=== PATIENT | male | born 1935 | race Caucasian/White ===

== ENCOUNTER 2016-10-14 14:17 | Outpatient (RCR) | payer MEDICARE ==
--- OUTSIDE RECORDS SUMMARY | 2016-07-21 12:48 | XMS REPORT | Continuity of Care Document ---
Author Author [facility] Organization [facility] Address Unknown Phone Unavailable Care Team Providers Care Receiving Coordinator Name Role Phone PILAR HUGHES DO PCP Insurance Providers Payer Name Policy Number Subscriber Name Relationship Wps Medicare [id number] Huyen Castro 19 Self / Same As Patient [facility] Supp [id number] Huyen Castro Self / Same As Patient Advance Directives Directive Response Recorded Date/Time Advance Directives No 12/07/15 7:37am Health Care Power of Slate Trimmer No 12/07/15 7:37am Organ Donor Yes 12/07/15 7:37am Problems Active Problems Medical Problem Onset Date Status Abrasion Unknown Acute Closed nondisplaced fracture of pelvis Unknown Acute Fall from ladder Unknown Acute Fracture of distal end of right humerus Unknown Acute Fracture of radial head, right, closed Unknown Acute Medications Current Home Medications Medication Dose Units Route Directions Days/Qty Instructions Start Date Levothyroxine Sodium (Levothroid) 125 Mcg 125 Mcg Oral Daily Isosorbide Mononitrate 60 Mg 60 Mg Oral Twice A Day 01/16/15 Atorvastatin Calcium 10 Mg 10 Mg Oral Bedtime 01/16/15 Amiodarone Hcl 200 Mg 200 Mg Oral Daily 12/03/15 Ferrous Sulfate 325 Mg 325 Mg Oral Bedtime 12/03/15 Lorazepam 0.5 Mg 0.5 Mg Oral Twice A Day as needed for Anxiety 12/02 Past Home Medications Medication Directions Ordered Status Warfarin Sodium 5 Mg Tablet, 5 Mg Oral Daily 01/16/15 Discontinued Bupropion Hcl 300 Mg Tab.sr.24h, 300 Mg Oral Daily 01/16/15 Discontinued Prasugrel Hydrochloride 10 Mg Tablet, 10 Mg Oral Daily 01/16/15 Discontinued Digoxin (Lanoxin) 250 Mcg Tablet, 1 Each Oral Daily 01/16/15 Discontinued Apixaban (Eliquis) 5 Mg Tablet, 2.5 Mg Oral Twice A Day 05/08/15 Discontinued Sotalol Hcl 80 Mg Tab, 1/2 Am, 1/2 Pm 05/08/15 Discontinued Prasugrel Hcl 10 Mg Tablet, 10 Mg Oral Daily 12/03/15 Discontinued Aspirin 81 Mg Tablet.dr, 81 Mg Oral Daily 12/03/15 Discontinued Social History Social History Problem Response Recorded Date/Time Alcohol Use Denies Use 05/08/2015 3:58pm Recreational Drug Use No 05/08/2015 3:58pm Recent Foreign Travel No 04/08/2016 10:18am Do you dip or chew tobacco? No 05/08/2015 3:58pm Hospital Discharge Instructions No hospital discharge instructions. Plan of Care Prescriptions See Medication Section Functional Status No functional status results. Allergies, Adverse Reactions, Alerts Allergen Type Severity Reaction Status Last Updated Sulfa (Sulfonamide Antibiotics) ([id number]) Allergy Unknown Active 02/24 Quinine Allergy Unknown Active 01/16/15 Immunizations No immunization records. Vital Signs No known vital signs results. Results No known relevant diagnostic tests, laboratory data and/or discharge summary. Procedures No known history of procedures. Encounters Encounter Location Arrival/Admit Date Discharge/Depart Date Attending Provider Discharged Recurring [facility] 04/10/16 10:15am 5:00pm PILAR HUGHES DO Registered Clinic [facility] 03/27/16 8:58am KAITLYN MULLINS DO
[2016-07-21 13:41] LABS: BASOPHILS % (AUTO) 1 % (0-10); EOSINOPHILS # (AUTO) 0.2 10^3/uL (0.0-0.3); EOSINOPHILS % (AUTO) 5 % (0-10); LYMPHOCYTES # (AUTO) 0.7 X 10^3 (1.0-4.0); LYMPHOCYTES % (AUTO) 14 % (12-44); MEAN CORPUSCULAR HEMOGLOBIN 24 PG (25-34); MEAN CORPUSCULAR HGB CONC 30 G/DL (32-36); MEAN CORPUSCULAR VOLUME 82 FL (80-99); MONOCYTES # (AUTO) 0.9 X 10^3 (0.0-1.0); MONOCYTES % (AUTO) 19 % (0-12); NEUTROPHILS % (AUTO) 62 % (42-75); PLATELET COUNT 141 10^3/uL (130-400); RED BLOOD COUNT 3.76 10^6/uL (4.35-5.85); RED CELL DISTRIBUTION WIDTH 17.5 % (10.0-14.5); RETICULOCYTE % 1.73 % (0.50-2.40); WHITE BLOOD COUNT 4.8 10^3/uL (4.3-11.0)
[2016-07-21 14:06] LABS: ALANINE AMINOTRANSFERASE 47 U/L (0-55); ALBUMIN 3.9 G/DL (3.2-4.5); ANION GAP 7 MMOL/L (5-14); ASPARTATE AMINO TRANSFERASE 56 U/L (5-34); BILIRUBIN,TOTAL 0.3 MG/DL (0.1-1.0); BLOOD UREA NITROGEN 14 MG/DL (7-18); BUN/CREATININE RATIO 13; CALCIUM 8.6 MG/DL (8.5-10.1); CARBON DIOXIDE 27 MMOL/L (21-32); CHLORIDE 105 MMOL/L (98-107); CREATININE SERUM 1.12 MG/DL (0.60-1.30); GFR ESTIMATED > 60; GLUCOSE 123 MG/DL (70-105); POTASSIUM 4.5 MMOL/L (3.6-5.0); SODIUM 139 MMOL/L (135-145); TOTAL PROTEIN 6.1 G/DL (6.4-8.2)
[2016-07-21 16:34] LABS: %SAT TOTAL IRON BINDING CAPIC 4 % (15-50); TIBC 369 ug/dL (280-380)
[2016-07-22 07:47] LABS: FERRITIN 35 ng/mL (25-300); UIBC 353 ug/dL (55-450)
[2016-08-18 14:57] LABS: BASOPHILS % (AUTO) 0 % (0-10); EOSINOPHILS # (AUTO) 0.2 10^3/uL (0.0-0.3); EOSINOPHILS % (AUTO) 4 % (0-10); LYMPHOCYTES # (AUTO) 0.6 X 10^3 (1.0-4.0); LYMPHOCYTES % (AUTO) 13 % (12-44); MEAN CORPUSCULAR HEMOGLOBIN 27 PG (25-34); MEAN CORPUSCULAR HGB CONC 30 G/DL (32-36); MEAN CORPUSCULAR VOLUME 90 FL (80-99); MEAN PLATELET VOLUME 11.1 FL (7.4-10.4); MONOCYTES # (AUTO) 0.8 X 10^3 (0.0-1.0); MONOCYTES % (AUTO) 18 % (0-12); NEUTROPHILS % (AUTO) 65 % (42-75); PLATELET COUNT 117 10^3/uL (130-400); RED CELL DISTRIBUTION WIDTH 23.1 % (10.0-14.5); WHITE BLOOD COUNT 4.6 10^3/uL (4.3-11.0)
[2016-08-18 15:19] LABS: ALANINE AMINOTRANSFERASE 40 U/L (0-55); ALBUMIN 3.9 G/DL (3.2-4.5); ANION GAP 7 MMOL/L (5-14); ASPARTATE AMINO TRANSFERASE 61 U/L (5-34); BILIRUBIN,TOTAL 0.4 MG/DL (0.1-1.0); BLOOD UREA NITROGEN 17 MG/DL (7-18); BUN/CREATININE RATIO 17; CALCIUM 8.4 MG/DL (8.5-10.1); CARBON DIOXIDE 26 MMOL/L (21-32); CHLORIDE 109 MMOL/L (98-107); CREATININE SERUM 0.99 MG/DL (0.60-1.30); GFR ESTIMATED > 60; GLUCOSE 134 MG/DL (70-105); POTASSIUM 4.1 MMOL/L (3.6-5.0); SODIUM 142 MMOL/L (135-145); TOTAL PROTEIN 6.1 G/DL (6.4-8.2)
[2016-09-15 14:03] LABS: BASOPHILS % (AUTO) 1 % (0-10); EOSINOPHILS # (AUTO) 0.2 10^3/uL (0.0-0.3); EOSINOPHILS % (AUTO) 2 % (0-10); LYMPHOCYTES # (AUTO) 0.8 X 10^3 (1.0-4.0); LYMPHOCYTES % (AUTO) 12 % (12-44); MEAN CORPUSCULAR HEMOGLOBIN 27 PG (25-34); MEAN CORPUSCULAR HGB CONC 31 G/DL (32-36); MEAN CORPUSCULAR VOLUME 89 FL (80-99); MEAN PLATELET VOLUME 11.6 FL (7.4-10.4); MONOCYTES # (AUTO) 1.1 X 10^3 (0.0-1.0); MONOCYTES % (AUTO) 16 % (0-12); NEUTROPHILS # (AUTO) 4.8 X 10^3 (1.8-7.8); NEUTROPHILS % (AUTO) 70 % (42-75); PLATELET COUNT 123 10^3/uL (130-400); RED BLOOD COUNT 4.17 10^6/uL (4.35-5.85); RED CELL DISTRIBUTION WIDTH 18.6 % (10.0-14.5); WHITE BLOOD COUNT 6.9 10^3/uL (4.3-11.0)
[2016-09-15 14:27] LABS: ALANINE AMINOTRANSFERASE 44 U/L (0-55); ALBUMIN 3.9 G/DL (3.2-4.5); ANION GAP 7 MMOL/L (5-14); ASPARTATE AMINO TRANSFERASE 68 U/L (5-34); BILIRUBIN,TOTAL 0.4 MG/DL (0.1-1.0); BLOOD UREA NITROGEN 15 MG/DL (7-18); BUN/CREATININE RATIO 13; CALCIUM 8.8 MG/DL (8.5-10.1); CARBON DIOXIDE 28 MMOL/L (21-32); CHLORIDE 107 MMOL/L (98-107); CREATININE SERUM 1.14 MG/DL (0.60-1.30); GFR ESTIMATED > 60; GLUCOSE 118 MG/DL (70-105); POTASSIUM 4.5 MMOL/L (3.6-5.0); SODIUM 142 MMOL/L (135-145); TOTAL PROTEIN 6.5 G/DL (6.4-8.2)
[2016-10-09 14:32] LABS: BASOPHILS % (AUTO) 1 % (0-10); EOSINOPHILS # (AUTO) 0.1 10^3/uL (0.0-0.3); EOSINOPHILS % (AUTO) 2 % (0-10); LYMPHOCYTES # (AUTO) 0.6 X 10^3 (1.0-4.0); LYMPHOCYTES % (AUTO) 11 % (12-44); MEAN CORPUSCULAR HEMOGLOBIN 28 PG (25-34); MEAN CORPUSCULAR HGB CONC 32 G/DL (32-36); MEAN CORPUSCULAR VOLUME 89 FL (80-99); MEAN PLATELET VOLUME 10.8 FL (7.4-10.4); MONOCYTES # (AUTO) 0.9 X 10^3 (0.0-1.0); MONOCYTES % (AUTO) 15 % (0-12); NEUTROPHILS # (AUTO) 4.1 X 10^3 (1.8-7.8); NEUTROPHILS % (AUTO) 72 % (42-75); PLATELET COUNT 124 10^3/uL (130-400); RED BLOOD COUNT 3.52 10^6/uL (4.35-5.85); RED CELL DISTRIBUTION WIDTH 17.2 % (10.0-14.5); WHITE BLOOD COUNT 5.7 10^3/uL (4.3-11.0)
[2016-10-09 15:03] LABS: ALANINE AMINOTRANSFERASE 42 U/L (0-55); ALBUMIN 3.7 G/DL (3.2-4.5); ANION GAP 8 MMOL/L (5-14); ASPARTATE AMINO TRANSFERASE 51 U/L (5-34); BILIRUBIN,TOTAL 0.3 MG/DL (0.1-1.0); BLOOD UREA NITROGEN 13 MG/DL (7-18); BUN/CREATININE RATIO 13; CALCIUM 8.7 MG/DL (8.5-10.1); CARBON DIOXIDE 28 MMOL/L (21-32); CHLORIDE 105 MMOL/L (98-107); CREATININE SERUM 1.02 MG/DL (0.60-1.30); GFR ESTIMATED > 60; GLUCOSE 119 MG/DL (70-105); POTASSIUM 4.3 MMOL/L (3.6-5.0); SODIUM 141 MMOL/L (135-145); TOTAL PROTEIN 6.1 G/DL (6.4-8.2)
[2016-10-09 15:24] LABS: THYROID STIMULATING HORMONE 4.33 UIU/ML (0.35-4.94)
[~2016-10-14 14:17] MED LIST: AMIO200T2 PO; AMLO10TA2 PO; APIX2.5T PO; APIX5TAB2 PO; ASPI-586 PO; ATOR10TA66 PO; BUPR300T51 PO; CNC1KV IJ; DIGO250T PO; FERR-74 PO; FERRIC CARBOXYMALTOSE (CANCER) 750 MG in NS (IVPB) CANCER CENTER 250 ML IV SCH; FINA5TAB6 PO; ISOS60TA3 PO; LEVO125T6 PO; LORA0.5T PO; PRAS10TA6 PO; STL80T; WARF5TAB6 PO
== END 2016-10-19 | disposition home or self-care (01) ==
LOC: ONC 14:17
PROVIDERS: ATTEND Internal Medicine Hematology & Oncology
DX: D50.9 Iron deficiency anemia, unspecified (principal); D61.818 Other pancytopenia; I48.91 Unspecified atrial fibrillation; E03.9 Hypothyroidism, unspecified; K59.00 Constipation, unspecified; G47.33 Obstructive sleep apnea (adult) (pediatric); Z79.899 Other long term (current) drug therapy
CPT/HCPCS: 36415; 80053; 82728; 83540; 84443; 85025; 85045; 96365; 99213; 99214

== ENCOUNTER 2017-02-03 13:15 | Outpatient (RCR) | payer MEDICARE ==
[2016-11-06 12:25] LABS: BASOPHILS % (AUTO) 1 % (0-10); EOSINOPHILS # (AUTO) 0.1 10^3/uL (0.0-0.3); EOSINOPHILS % (AUTO) 2 % (0-10); LYMPHOCYTES # (AUTO) 0.6 X 10^3 (1.0-4.0); LYMPHOCYTES % (AUTO) 12 % (12-44); MEAN CORPUSCULAR HEMOGLOBIN 26 PG (25-34); MEAN CORPUSCULAR HGB CONC 31 G/DL (32-36); MEAN CORPUSCULAR VOLUME 83 FL (80-99); MEAN PLATELET VOLUME 11.7 FL (7.4-10.4); MONOCYTES # (AUTO) 0.7 X 10^3 (0.0-1.0); MONOCYTES % (AUTO) 14 % (0-12); NEUTROPHILS # (AUTO) 3.7 X 10^3 (1.8-7.8); NEUTROPHILS % (AUTO) 72 % (42-75); PLATELET COUNT 138 10^3/uL (130-400); RED BLOOD COUNT 3.91 10^6/uL (4.35-5.85); RED CELL DISTRIBUTION WIDTH 15.9 % (10.0-14.5); RETICULOCYTE % 1.26 % (0.50-2.40); WHITE BLOOD COUNT 5.1 10^3/uL (4.3-11.0)
[2016-11-06 12:42] LABS: CREATININE SERUM 1.18 MG/DL (0.60-1.30); POTASSIUM 4.1 MMOL/L (3.6-5.0)
[2016-11-06 12:43] LABS: ALBUMIN 4.2 G/DL (3.2-4.5); BILIRUBIN,TOTAL 0.4 MG/DL (0.1-1.0); CALCIUM 9.1 MG/DL (8.5-10.1); TOTAL PROTEIN 6.9 G/DL (6.4-8.2)
[2016-11-06 16:48] LABS: %SAT TOTAL IRON BINDING CAPIC 2 % (15-50); TIBC <411 ug/dL (280-380)
[2016-11-07 08:06] LABS: UIBC 401 ug/dL (55-450)
[2016-12-11 12:05] LABS: BASOPHILS % (AUTO) 1 % (0-10); EOSINOPHILS # (AUTO) 0.2 10^3/uL (0.0-0.3); EOSINOPHILS % (AUTO) 3 % (0-10); LYMPHOCYTES # (AUTO) 0.6 X 10^3 (1.0-4.0); LYMPHOCYTES % (AUTO) 12 % (12-44); MEAN CORPUSCULAR HEMOGLOBIN 26 PG (25-34); MEAN CORPUSCULAR HGB CONC 31 G/DL (32-36); MEAN CORPUSCULAR VOLUME 86 FL (80-99); MEAN PLATELET VOLUME 11.7 FL (7.4-10.4); MONOCYTES # (AUTO) 0.9 X 10^3 (0.0-1.0); MONOCYTES % (AUTO) 17 % (0-12); NEUTROPHILS # (AUTO) 3.4 X 10^3 (1.8-7.8); NEUTROPHILS % (AUTO) 67 % (42-75); PLATELET COUNT 127 10^3/uL (130-400); RED CELL DISTRIBUTION WIDTH 22.2 % (10.0-14.5); WHITE BLOOD COUNT 5.1 10^3/uL (4.3-11.0)
[2016-12-11 13:23] LABS: ALANINE AMINOTRANSFERASE 26 U/L (0-55); ALBUMIN 3.9 G/DL (3.2-4.5); ANION GAP 11 MMOL/L (5-14); ASPARTATE AMINO TRANSFERASE 41 U/L (5-34); BILIRUBIN,TOTAL 0.5 MG/DL (0.1-1.0); BLOOD UREA NITROGEN 11 MG/DL (7-18); BUN/CREATININE RATIO 10; CALCIUM 8.9 MG/DL (8.5-10.1); CARBON DIOXIDE 26 MMOL/L (21-32); CHLORIDE 105 MMOL/L (98-107); CREATININE SERUM 1.05 MG/DL (0.60-1.30); GFR ESTIMATED > 60; GLUCOSE 143 MG/DL (70-105); POTASSIUM 4.4 MMOL/L (3.6-5.0); SODIUM 142 MMOL/L (135-145); TOTAL PROTEIN 6.4 G/DL (6.4-8.2)
[~2017-02-03 13:15] MED LIST changes: -FERRIC CARBOXYMALTOSE (CANCER) 750 MG in NS (IVPB) CANCER CENTER 250 ML IV SCH
[2017-02-03 13:54] LABS: BASOPHILS % (AUTO) 1 % (0-10); EOSINOPHILS # (AUTO) 0.2 10^3/uL (0.0-0.3); EOSINOPHILS % (AUTO) 4 % (0-10); LYMPHOCYTES # (AUTO) 0.7 X 10^3 (1.0-4.0); LYMPHOCYTES % (AUTO) 14 % (12-44); MEAN CORPUSCULAR HEMOGLOBIN 28 PG (25-34); MEAN CORPUSCULAR HGB CONC 31 G/DL (32-36); MEAN CORPUSCULAR VOLUME 89 FL (80-99); MEAN PLATELET VOLUME 11.1 FL (7.4-10.4); MONOCYTES # (AUTO) 0.7 X 10^3 (0.0-1.0); MONOCYTES % (AUTO) 15 % (0-12); NEUTROPHILS # (AUTO) 3.2 X 10^3 (1.8-7.8); NEUTROPHILS % (AUTO) 66 % (42-75); PLATELET COUNT 105 10^3/uL (130-400); RED BLOOD COUNT 4.29 10^6/uL (4.35-5.85); RED CELL DISTRIBUTION WIDTH 18.3 % (10.0-14.5); WHITE BLOOD COUNT 4.8 10^3/uL (4.3-11.0)
[2017-02-03 14:25] LABS: ALANINE AMINOTRANSFERASE 27 U/L (0-55); ALBUMIN 3.9 GM/DL (3.2-4.5); ANION GAP 9 MMOL/L (5-14); ASPARTATE AMINO TRANSFERASE 37 U/L (5-34); BILIRUBIN,TOTAL 0.6 MG/DL (0.1-1.0); BLOOD UREA NITROGEN 11 MG/DL (7-18); BUN/CREATININE RATIO 11; CALCIUM 8.9 MG/DL (8.5-10.1); CARBON DIOXIDE 25 MMOL/L (21-32); CHLORIDE 107 MMOL/L (98-107); GFR ESTIMATED > 60; GLUCOSE 132 MG/DL (70-105); POTASSIUM 3.9 MMOL/L (3.6-5.0); SODIUM 141 MMOL/L (135-145); TOTAL PROTEIN 6.5 GM/DL (6.4-8.2)
[2017-02-03 14:47] LABS: THYROID STIMULATING HORMONE 3.49 UIU/ML (0.35-4.94)
== END 2017-02-04 | disposition home or self-care (01) ==
LOC: ONC 13:15
PROVIDERS: ATTEND Internal Medicine Hematology & Oncology
DX: D50.9 Iron deficiency anemia, unspecified (principal); D61.818 Other pancytopenia; I48.91 Unspecified atrial fibrillation; E03.9 Hypothyroidism, unspecified; K59.00 Constipation, unspecified; G47.33 Obstructive sleep apnea (adult) (pediatric); Z79.899 Other long term (current) drug therapy
CPT/HCPCS: 36415; 80053; 82728; 83540; 84443; 85025; 85045; 99213

== ENCOUNTER → 2017-04-06 | Outpatient (CLI) | payer MEDICARE ==
[~2017-04-06] MED LIST changes: +BARIUM SUSPENSION 105% (LIQUID POLIBAR PLUS) 240 ML/DOSE PO ONE; +BARIUM SUSPENSION 60% (LIQUID EZ PAQUE) 240 ML DOSE PO ONE
--- NOTE | 2017-04-06 11:54 | Diagnostic Imaging Report ---
EXAMINATION: Barium swallow double-contrast. INDICATION: Dysphagia Fluoroscopy time: Dysphagia TECHNIQUE: Rn Case Manager image of the chest was performed. Subsequently, the patient was given gas forming granules for oral ingestion followed by thick and thin barium to drink. Swallowing through the esophagus was observed with fluoroscopy and overhead images, as well as multiple spot images in the upright and prone positions, were taken. FINDINGS: Rn Case Manager image of the chest demonstrate sternotomy wires. No significant reflux is seen during the study. Normal motility seen. The esophagus is normal in caliber and contour. There is mucosal irregularity in the mid and distal esophagus. No diverticulum or filling defect to suggest a mass. There is no hiatal hernia demonstrated. IMPRESSION: Findings suggestive of esophagitis involving mainly the mid and distal esophagus. Correlate with the endoscopy. Dictated by: Dictated on workstation # [id number]
== END ==
LOC: RAD 10:44
PROVIDERS: ATTEND Internal Medicine
DX: R13.10 Dysphagia, unspecified (principal)
CPT/HCPCS: 74220

== ENCOUNTER 2017-04-07 13:37 | Outpatient (RCR) | payer MEDICARE ==
[~2017-04-07 13:37] MED LIST changes: -BARIUM SUSPENSION 105% (LIQUID POLIBAR PLUS) 240 ML/DOSE PO ONE; -BARIUM SUSPENSION 60% (LIQUID EZ PAQUE) 240 ML DOSE PO ONE
[2017-04-07 14:02] LABS: BASOPHILS % (AUTO) 1 % (0-10); EOSINOPHILS # (AUTO) 0.2 10^3/uL (0.0-0.3); EOSINOPHILS % (AUTO) 5 % (0-10); LYMPHOCYTES # (AUTO) 0.6 X 10^3 (1.0-4.0); LYMPHOCYTES % (AUTO) 16 % (12-44); MEAN CORPUSCULAR HEMOGLOBIN 29 PG (25-34); MEAN CORPUSCULAR HGB CONC 31 G/DL (32-36); MEAN CORPUSCULAR VOLUME 92 FL (80-99); MEAN PLATELET VOLUME 11.6 FL (7.4-10.4); MONOCYTES # (AUTO) 0.6 X 10^3 (0.0-1.0); MONOCYTES % (AUTO) 15 % (0-12); NEUTROPHILS # (AUTO) 2.6 X 10^3 (1.8-7.8); NEUTROPHILS % (AUTO) 64 % (42-75); PLATELET COUNT 97 10^3/uL (130-400); RED BLOOD COUNT 4.02 10^6/uL (4.35-5.85); RED CELL DISTRIBUTION WIDTH 16.4 % (10.0-14.5); RETICULOCYTE % 2.36 % (0.50-2.40)
[2017-04-07 14:20] LABS: ALANINE AMINOTRANSFERASE 26 U/L (0-55); ALBUMIN 3.8 GM/DL (3.2-4.5); ANION GAP 9 MMOL/L (5-14); ASPARTATE AMINO TRANSFERASE 35 U/L (5-34); BILIRUBIN,TOTAL 0.5 MG/DL (0.1-1.0); BLOOD UREA NITROGEN 11 MG/DL (7-18); BUN/CREATININE RATIO 11; CALCIUM 8.7 MG/DL (8.5-10.1); CARBON DIOXIDE 28 MMOL/L (21-32); CHLORIDE 106 MMOL/L (98-107); CREATININE SERUM 0.99 MG/DL (0.60-1.30); GFR ESTIMATED > 60; GLUCOSE 115 MG/DL (70-105); SODIUM 143 MMOL/L (135-145); TOTAL PROTEIN 6.4 GM/DL (6.4-8.2)
== END 2017-04-09 13:48 | disposition home or self-care (01) ==
LOC: ONC 13:37
PROVIDERS: ATTEND Internal Medicine Hematology & Oncology
DX: D50.9 Iron deficiency anemia, unspecified (principal); D61.818 Other pancytopenia; I48.91 Unspecified atrial fibrillation; E03.9 Hypothyroidism, unspecified; K59.00 Constipation, unspecified; G47.33 Obstructive sleep apnea (adult) (pediatric); Z79.899 Other long term (current) drug therapy
CPT/HCPCS: 36415; 80053; 82728; 83540; 85025; 85045; 99213

== ENCOUNTER 2017-06-25 09:47 | Outpatient (RCR) | payer MEDICARE ==
[2017-06-17 14:11] LABS: BASOPHILS % (AUTO) 1 % (0-10); EOSINOPHILS # (AUTO) 0.1 10^3/uL (0.0-0.3); EOSINOPHILS % (AUTO) 3 % (0-10); HEMATOCRIT 38 % (40-54); HEMOGLOBIN 11.7 G/DL (13.3-17.7); LYMPHOCYTES # (AUTO) 0.8 X 10^3 (1.0-4.0); LYMPHOCYTES % (AUTO) 20 % (12-44); MEAN CORPUSCULAR HEMOGLOBIN 29 PG (25-34); MEAN CORPUSCULAR HGB CONC 31 G/DL (32-36); MEAN CORPUSCULAR VOLUME 95 FL (80-99); MEAN PLATELET VOLUME 11.2 FL (7.4-10.4); MONOCYTES # (AUTO) 0.6 X 10^3 (0.0-1.0); MONOCYTES % (AUTO) 15 % (0-12); NEUTROPHILS # (AUTO) 2.3 X 10^3 (1.8-7.8); NEUTROPHILS % (AUTO) 61 % (42-75); PLATELET COUNT 107 10^3/uL (130-400); RED BLOOD COUNT 3.99 10^6/uL (4.35-5.85); RED CELL DISTRIBUTION WIDTH 15.3 % (10.0-14.5); WHITE BLOOD COUNT 3.8 10^3/uL (4.3-11.0)
[2017-06-17 14:30] LABS: ALANINE AMINOTRANSFERASE 19 U/L (0-55); ALBUMIN 3.9 GM/DL (3.2-4.5); ALKALINE PHOSPHATASE 102 U/L (40-136); BILIRUBIN,TOTAL 0.5 MG/DL (0.1-1.0); BUN/CREATININE RATIO 10; CALCIUM 8.7 MG/DL (8.5-10.1); CARBON DIOXIDE 30 MMOL/L (21-32); CHLORIDE 107 MMOL/L (98-107); CREATININE SERUM 1.01 MG/DL (0.60-1.30); GFR ESTIMATED > 60; GLUCOSE 92 MG/DL (70-105); POTASSIUM 4.4 MMOL/L (3.6-5.0); SODIUM 144 MMOL/L (135-145); TOTAL PROTEIN 6.6 GM/DL (6.4-8.2)
== END 2017-07-13 | disposition home or self-care (01) ==
LOC: ONC 09:47
PROVIDERS: ATTEND Internal Medicine Hematology & Oncology
DX: D50.9 Iron deficiency anemia, unspecified (principal); D61.818 Other pancytopenia; D69.59 Other secondary thrombocytopenia; I48.2 Chronic atrial fibrillation; E03.9 Hypothyroidism, unspecified; G47.33 Obstructive sleep apnea (adult) (pediatric); K59.00 Constipation, unspecified; R42 Dizziness and giddiness; Z79.899 Other long term (current) drug therapy; Z79.01 Long term (current) use of anticoagulants
CPT/HCPCS: 36415; 80053; 82728; 83540; 84443; 85025; 99213

== ENCOUNTER 2017-09-17 10:35 | Outpatient (RCR) | payer MEDICARE ==
[2017-09-11 13:37] LABS: BASOPHILS % (AUTO) 1 % (0-10); EOSINOPHILS # (AUTO) 0.1 10^3/uL (0.0-0.3); EOSINOPHILS % (AUTO) 2 % (0-10); HEMATOCRIT 36 % (40-54); HEMOGLOBIN 11.5 G/DL (13.3-17.7); LYMPHOCYTES # (AUTO) 0.7 X 10^3 (1.0-4.0); LYMPHOCYTES % (AUTO) 13 % (12-44); MEAN CORPUSCULAR HEMOGLOBIN 29 PG (25-34); MEAN CORPUSCULAR HGB CONC 32 G/DL (32-36); MEAN CORPUSCULAR VOLUME 91 FL (80-99); MEAN PLATELET VOLUME 11.5 FL (7.4-10.4); MONOCYTES # (AUTO) 0.5 X 10^3 (0.0-1.0); MONOCYTES % (AUTO) 9 % (0-12); NEUTROPHILS % (AUTO) 76 % (42-75); PLATELET COUNT 117 10^3/uL (130-400); RED BLOOD COUNT 3.94 10^6/uL (4.35-5.85); RED CELL DISTRIBUTION WIDTH 13.9 % (10.0-14.5); WHITE BLOOD COUNT 5.3 10^3/uL (4.3-11.0)
[2017-09-11 14:01] LABS: ALANINE AMINOTRANSFERASE 32 U/L (0-55); ALBUMIN 3.7 GM/DL (3.2-4.5); ALKALINE PHOSPHATASE 83 U/L (40-136); BILIRUBIN,TOTAL 0.5 MG/DL (0.1-1.0); BUN/CREATININE RATIO 13; CALCIUM 8.6 MG/DL (8.5-10.1); CARBON DIOXIDE 24 MMOL/L (21-32); CHLORIDE 106 MMOL/L (98-107); CREATININE SERUM 0.98 MG/DL (0.60-1.30); GFR ESTIMATED > 60; GLUCOSE 119 MG/DL (70-105); POTASSIUM 3.9 MMOL/L (3.6-5.0); SODIUM 141 MMOL/L (135-145); TOTAL PROTEIN 6.2 GM/DL (6.4-8.2)
[~2017-09-17 10:35] MED LIST changes: -FERR-74 PO; +FERR325T18 PO
== END 2017-12-10 | disposition home or self-care (01) ==
LOC: ONC 10:35
PROVIDERS: ATTEND Internal Medicine Hematology & Oncology
DX: D50.9 Iron deficiency anemia, unspecified (principal); D61.818 Other pancytopenia; I48.91 Unspecified atrial fibrillation; E03.9 Hypothyroidism, unspecified; K59.00 Constipation, unspecified; G47.33 Obstructive sleep apnea (adult) (pediatric); Z79.899 Other long term (current) drug therapy
CPT/HCPCS: 36415; 80053; 82728; 83540; 85025; 99213

== ENCOUNTER 2018-03-12 11:39 | Outpatient (RCR) | payer MEDICARE ==
[~2018-03-12 11:39] MED LIST changes: -AMIO200T2 PO; +AMIO200T4 PO; -AMLO10TA2 PO; +AMLO10TA6 PO
[2018-03-12 11:55] LABS: BASOPHILS % (AUTO) 1 % (0-10); EOSINOPHILS # (AUTO) 0.2 10^3/uL (0.0-0.3); EOSINOPHILS % (AUTO) 5 % (0-10); HEMATOCRIT 36 % (40-54); HEMOGLOBIN 11.3 G/DL (13.3-17.7); LYMPHOCYTES # (AUTO) 0.8 X 10^3 (1.0-4.0); LYMPHOCYTES % (AUTO) 20 % (12-44); MEAN CORPUSCULAR HEMOGLOBIN 28 PG (25-34); MEAN CORPUSCULAR HGB CONC 31 G/DL (32-36); MEAN CORPUSCULAR VOLUME 91 FL (80-99); MEAN PLATELET VOLUME 11.9 FL (7.4-10.4); MONOCYTES # (AUTO) 0.7 X 10^3 (0.0-1.0); MONOCYTES % (AUTO) 17 % (0-12); NEUTROPHILS # (AUTO) 2.2 X 10^3 (1.8-7.8); NEUTROPHILS % (AUTO) 57 % (42-75); PLATELET COUNT 88 10^3/uL (130-400); RED BLOOD COUNT 3.98 10^6/uL (4.35-5.85); RED CELL DISTRIBUTION WIDTH 15.6 % (10.0-14.5); WHITE BLOOD COUNT 3.9 10^3/uL (4.3-11.0)
[2018-03-12 12:22] LABS: ALANINE AMINOTRANSFERASE 19 U/L (0-55); ALKALINE PHOSPHATASE 92 U/L (40-136); BILIRUBIN,TOTAL 0.5 MG/DL (0.1-1.0); BUN/CREATININE RATIO 15; CALCIUM 9.2 MG/DL (8.5-10.1); CARBON DIOXIDE 27 MMOL/L (21-32); CHLORIDE 107 MMOL/L (98-107); GFR ESTIMATED > 60; GLUCOSE 101 MG/DL (70-105); POTASSIUM 4.2 MMOL/L (3.6-5.0); SODIUM 140 MMOL/L (135-145); TOTAL PROTEIN 6.3 GM/DL (6.4-8.2)
== END 2018-03-18 09:53 | disposition home or self-care (01) ==
LOC: ONC 11:39
PROVIDERS: ATTEND Internal Medicine Hematology & Oncology
DX: D50.9 Iron deficiency anemia, unspecified (principal); D61.818 Other pancytopenia; I48.91 Unspecified atrial fibrillation; E03.9 Hypothyroidism, unspecified; K59.00 Constipation, unspecified; G47.33 Obstructive sleep apnea (adult) (pediatric); Z79.899 Other long term (current) drug therapy
CPT/HCPCS: 36415; 80053; 82728; 83540; 85025

== ENCOUNTER 2018-03-18 09:58 | Outpatient (RCR) | payer MEDICARE | END 2018-04-11 | disposition home or self-care (01) | LOC: ONC 09:58 | PROVIDERS: ATTEND Internal Medicine Hematology & Oncology | DX: D50.9 Iron deficiency anemia, unspecified (principal); D61.818 Other pancytopenia; I48.91 Unspecified atrial fibrillation; E03.9 Hypothyroidism, unspecified; K59.00 Constipation, unspecified; G47.33 Obstructive sleep apnea (adult) (pediatric); Z79.899 Other long term (current) drug therapy | CPT/HCPCS: 99213 ==

== ENCOUNTER 2018-04-29 10:14 | Outpatient (RCR) | payer MEDICARE ==
[2018-04-22 12:00] LABS: BASOPHILS % (AUTO) 0 % (0-10); EOSINOPHILS # (AUTO) 0.1 10^3/uL (0.0-0.3); EOSINOPHILS % (AUTO) 2 % (0-10); HEMATOCRIT 39 % (40-54); HEMOGLOBIN 12.3 G/DL (13.3-17.7); LYMPHOCYTES # (AUTO) 0.7 X 10^3 (1.0-4.0); LYMPHOCYTES % (AUTO) 11 % (12-44); MEAN CORPUSCULAR HEMOGLOBIN 29 PG (25-34); MEAN CORPUSCULAR HGB CONC 32 G/DL (32-36); MEAN CORPUSCULAR VOLUME 91 FL (80-99); MEAN PLATELET VOLUME 11.4 FL (7.4-10.4); MONOCYTES # (AUTO) 0.6 X 10^3 (0.0-1.0); MONOCYTES % (AUTO) 9 % (0-12); NEUTROPHILS # (AUTO) 4.7 X 10^3 (1.8-7.8); NEUTROPHILS % (AUTO) 78 % (42-75); PLATELET COUNT 80 10^3/uL (130-400); RED BLOOD COUNT 4.23 10^6/uL (4.35-5.85); WHITE BLOOD COUNT 6.1 10^3/uL (4.3-11.0)
[2018-04-22 12:31] LABS: ALANINE AMINOTRANSFERASE 25 U/L (0-55); ALBUMIN 4.1 GM/DL (3.2-4.5); ALKALINE PHOSPHATASE 111 U/L (40-136); BILIRUBIN,TOTAL 0.5 MG/DL (0.1-1.0); BUN/CREATININE RATIO 21; CALCIUM 8.9 MG/DL (8.5-10.1); CARBON DIOXIDE 27 MMOL/L (21-32); CHLORIDE 105 MMOL/L (98-107); GFR ESTIMATED > 60; GLUCOSE 156 MG/DL (70-105); SODIUM 139 MMOL/L (135-145); TOTAL PROTEIN 6.3 GM/DL (6.4-8.2)
== END 2018-07-21 | disposition home or self-care (01) ==
LOC: ONC 10:14
PROVIDERS: ATTEND Internal Medicine Hematology & Oncology
DX: D50.9 Iron deficiency anemia, unspecified (principal); D61.818 Other pancytopenia; I48.91 Unspecified atrial fibrillation; E03.9 Hypothyroidism, unspecified; K59.00 Constipation, unspecified; G47.33 Obstructive sleep apnea (adult) (pediatric); Z79.899 Other long term (current) drug therapy
CPT/HCPCS: 36415; 80053; 82728; 83540; 85025; 99213

== ENCOUNTER → 2018-08-05 | Outpatient (CLI) | payer MEDICARE ==
[~2018-08-05] MED LIST changes: -AMLO10TA6 PO; +AMLO10TA7 PO
== END ==
LOC: LAB 09:55
PROVIDERS: ATTEND Internal Medicine
DX: E03.9 Hypothyroidism, unspecified (principal)
CPT/HCPCS: 36415; 84443

== ENCOUNTER 2018-08-12 14:30 | Outpatient (RCR) | payer MEDICARE | END 2018-08-12 15:18 | disposition home or self-care (01) | PROVIDERS: ATTEND Nurse Practitioner | DX: M51.16 Intervertebral disc disorders with radiculopathy, lumbar region (principal) ==

== ENCOUNTER → 2018-09-24 | Outpatient (CLI) | payer MEDICARE ==
--- NOTE | 2018-09-24 12:40 | Diagnostic Imaging Report ---
INDICATION: Pneumonia and cough. TIME OF EXAM: 12:15 PM Comparison is made with prior chest from 05/08/2015. FINDINGS: Changes of median sternotomy and CABG are noted. Appears to be chronic pleural-parenchymal changes in the apices bilaterally. No acute infiltrate is seen. The vascularity is normal. No effusion or pneumothorax is identified. IMPRESSION: No acute cardiopulmonary process is detected. Dictated by: Dictated on workstation # [id number]
== END ==
LOC: RAD 11:46
PROVIDERS: ATTEND Nurse Practitioner Family
DX: J09.X1 Influenza due to identified novel influenza A virus with pneumonia (principal); J18.1 Lobar pneumonia, unspecified organism; I25.810 Atherosclerosis of coronary artery bypass graft(s) without angina pectoris; I10 Essential (primary) hypertension; E03.9 Hypothyroidism, unspecified; E78.5 Hyperlipidemia, unspecified; D51.8 Other vitamin B12 deficiency anemias
CPT/HCPCS: 71047

== ENCOUNTER 2018-10-28 08:43 | Outpatient (RCR) | payer MEDICARE ==
[2018-08-05 10:12] LABS: BASOPHILS % (AUTO) 0 % (0-10); EOSINOPHILS # (AUTO) 0.1 10^3/uL (0.0-0.3); EOSINOPHILS % (AUTO) 2 % (0-10); HEMATOCRIT 40 % (40-54); HEMOGLOBIN 12.2 G/DL (13.3-17.7); LYMPHOCYTES # (AUTO) 0.7 X 10^3 (1.0-4.0); LYMPHOCYTES % (AUTO) 10 % (12-44); MEAN CORPUSCULAR HEMOGLOBIN 28 PG (25-34); MEAN CORPUSCULAR HGB CONC 31 G/DL (32-36); MEAN CORPUSCULAR VOLUME 92 FL (80-99); MEAN PLATELET VOLUME 11.5 FL (7.4-10.4); MONOCYTES # (AUTO) 0.8 X 10^3 (0.0-1.0); MONOCYTES % (AUTO) 12 % (0-12); NEUTROPHILS # (AUTO) 5.2 X 10^3 (1.8-7.8); NEUTROPHILS % (AUTO) 76 % (42-75); PLATELET COUNT 89 10^3/uL (130-400); WHITE BLOOD COUNT 6.9 10^3/uL (4.3-11.0)
[2018-08-05 10:47] LABS: ALANINE AMINOTRANSFERASE 24 U/L (0-55); ALBUMIN 4.1 GM/DL (3.2-4.5); ALKALINE PHOSPHATASE 127 U/L (40-136); BILIRUBIN,TOTAL 0.6 MG/DL (0.1-1.0); BUN/CREATININE RATIO 21; CARBON DIOXIDE 27 MMOL/L (21-32); CREATININE SERUM 0.92 MG/DL (0.60-1.30); GFR ESTIMATED > 60; GLUCOSE 131 MG/DL (70-105); TOTAL PROTEIN 6.3 GM/DL (6.4-8.2)
[2018-08-05 11:10] LABS: CHLORIDE 107 MMOL/L (98-107); POTASSIUM 4.3 MMOL/L (3.6-5.0); SODIUM 142 MMOL/L (135-145)
[~2018-10-28 08:43] MED LIST changes: +oxyCODONE/APAP 10/325MG (PERCOCET 10) TABLET PO ONE
[2018-10-28 09:03] LABS: BASOPHILS % (AUTO) 1 % (0-10); EOSINOPHILS # (AUTO) 0.2 10^3/uL (0.0-0.3); EOSINOPHILS % (AUTO) 5 % (0-10); HEMATOCRIT 37 % (40-54); HEMOGLOBIN 11.7 G/DL (13.3-17.7); LYMPHOCYTES # (AUTO) 0.7 X 10^3 (1.0-4.0); LYMPHOCYTES % (AUTO) 16 % (12-44); MEAN CORPUSCULAR HEMOGLOBIN 29 PG (25-34); MEAN CORPUSCULAR HGB CONC 32 G/DL (32-36); MEAN CORPUSCULAR VOLUME 91 FL (80-99); MONOCYTES # (AUTO) 0.7 X 10^3 (0.0-1.0); MONOCYTES % (AUTO) 15 % (0-12); NEUTROPHILS # (AUTO) 2.7 X 10^3 (1.8-7.8); NEUTROPHILS % (AUTO) 63 % (42-75); PLATELET COUNT 115 10^3/uL (130-400); RED CELL DISTRIBUTION WIDTH 15.1 % (10.0-14.5); WHITE BLOOD COUNT 4.3 10^3/uL (4.3-11.0)
[2018-10-28 09:24] LABS: ALANINE AMINOTRANSFERASE 25 U/L (0-55); ALBUMIN 4.2 GM/DL (3.2-4.5); ALKALINE PHOSPHATASE 104 U/L (40-136); BILIRUBIN,TOTAL 0.6 MG/DL (0.1-1.0); BUN/CREATININE RATIO 13; CALCIUM 9.4 MG/DL (8.5-10.1); CARBON DIOXIDE 28 MMOL/L (21-32); CHLORIDE 106 MMOL/L (98-107); CREATININE SERUM 0.91 MG/DL (0.60-1.30); GFR ESTIMATED > 60; GLUCOSE 100 MG/DL (70-105); POTASSIUM 3.7 MMOL/L (3.6-5.0); SODIUM 145 MMOL/L (135-145); TOTAL PROTEIN 6.5 GM/DL (6.4-8.2)
== END 2018-11-03 | disposition home or self-care (01) ==
LOC: ONC 08:43
PROVIDERS: ATTEND Internal Medicine Hematology & Oncology
DX: D50.9 Iron deficiency anemia, unspecified (principal); D61.818 Other pancytopenia; I48.91 Unspecified atrial fibrillation; E03.9 Hypothyroidism, unspecified; K59.00 Constipation, unspecified; G47.33 Obstructive sleep apnea (adult) (pediatric); Z79.899 Other long term (current) drug therapy
CPT/HCPCS: 36415; 80053; 82728; 83540; 85025; 99213

== ENCOUNTER 2019-01-05 13:38 | Outpatient (RCR) | payer MEDICARE ==
[~2019-01-05 13:38] MED LIST changes: -oxyCODONE/APAP 10/325MG (PERCOCET 10) TABLET PO ONE
== END 2019-02-18 14:53 | disposition home or self-care (01) ==
PROVIDERS: ATTEND Internal Medicine
DX: M54.2 Cervicalgia (principal)

== ENCOUNTER 2019-01-27 10:04 | Outpatient (RCR) | payer MEDICARE ==
[2019-01-20 10:50] LABS: ABSOLUTE RETIC # 71 10e9/L (24-90); BASOPHILS % (AUTO) 1 % (0-10); EOSINOPHILS # (AUTO) 0.2 10^3/uL (0.0-0.3); EOSINOPHILS % (AUTO) 4 % (0-10); HEMATOCRIT 37 % (40-54); HEMOGLOBIN 11.6 G/DL (13.3-17.7); LYMPHOCYTES # (AUTO) 0.7 X 10^3 (1.0-4.0); LYMPHOCYTES % (AUTO) 19 % (12-44); MEAN CORPUSCULAR HEMOGLOBIN 27 PG (25-34); MEAN CORPUSCULAR HGB CONC 31 G/DL (32-36); MEAN CORPUSCULAR VOLUME 88 FL (80-99); MEAN PLATELET VOLUME 12.5 FL (7.4-10.4); MONOCYTES # (AUTO) 0.5 X 10^3 (0.0-1.0); MONOCYTES % (AUTO) 14 % (0-12); NEUTROPHILS # (AUTO) 2.4 X 10^3 (1.8-7.8); NEUTROPHILS % (AUTO) 62 % (42-75); PLATELET COUNT 110 10^3/uL (130-400); RED CELL DISTRIBUTION WIDTH 14.6 % (10.0-14.5); RETICULOCYTE % 1.67 % (0.50-2.40); WHITE BLOOD COUNT 3.8 10^3/uL (4.3-11.0)
[2019-01-20 11:09] LABS: ALANINE AMINOTRANSFERASE 14 U/L (0-55); ALBUMIN 4.3 GM/DL (3.2-4.5); ALKALINE PHOSPHATASE 113 U/L (40-136); BILIRUBIN,TOTAL 0.3 MG/DL (0.1-1.0); BUN/CREATININE RATIO 11; CALCIUM 9.2 MG/DL (8.5-10.1); CARBON DIOXIDE 29 MMOL/L (21-32); CHLORIDE 105 MMOL/L (98-107); CREATININE SERUM 1.12 MG/DL (0.60-1.30); GFR ESTIMATED > 60; GLUCOSE 102 MG/DL (70-105); POTASSIUM 4.2 MMOL/L (3.6-5.0); SODIUM 142 MMOL/L (135-145); TOTAL PROTEIN 6.8 GM/DL (6.4-8.2)
== END 2019-02-02 | disposition home or self-care (01) ==
LOC: ONC 10:04
PROVIDERS: ATTEND Internal Medicine Hematology & Oncology
DX: D50.9 Iron deficiency anemia, unspecified (principal); D61.818 Other pancytopenia; I48.91 Unspecified atrial fibrillation; E03.9 Hypothyroidism, unspecified; K59.00 Constipation, unspecified; G47.33 Obstructive sleep apnea (adult) (pediatric); Z79.899 Other long term (current) drug therapy
CPT/HCPCS: 36415; 80053; 82728; 83540; 85025; 85045; 99213

== ENCOUNTER → 2019-02-07 | Outpatient (CLI) | payer MEDICARE ==
--- NOTE | 2019-02-07 15:16 | Diagnostic Imaging Report ---
PROCEDURE: MR imaging cervical spine without contrast. TECHNIQUE: Multiplanar, multisequence MR imaging of the cervical spine was performed without contrast. INDICATION: Neck pain. COMPARISON: No prior studies are available for comparison. FINDINGS: Curvature of the cervical spine is normal. Overall alignment appears to be within normal limits with the exception of questionable minimal retrolisthesis of C5 on C6. There is moderate pannus identified at the level of the odontoid with some signal changes within the odontoid. No significant canal narrowing, however at this level is seen. There is severe degenerative disc disease at all levels of the cervical spine with variable disc space narrowing and desiccation as well as marginal osteophyte formation. Cervical cord does show homogeneous signal intensity. No abnormal cord signal is identified. C2-C3: Central canal and neuroforamina appear to be patent. C3-C4: Broad-based disc/osteophyte complex indents the ventral thecal sac and produces mild to moderate central canal stenosis. There also appears to be mild bilateral neuroforaminal narrowing. C4-C5: Broad-based disc/osteophyte complex results in moderate central canal narrowing. There is also moderate right and mild left neuroforaminal stenosis. C5-C6: Prominent broad-based disc/osteophyte complex produces moderate canal stenosis. There is asymmetric left paramidline disc/osteophyte indenting the sac and narrowing the left lateral recess. There appears to be significant bilateral neuroforaminal stenosis. C6-C7: Broad-based disc/osteophyte complex indents the ventral thecal sac. No significant canal narrowing is seen. There is moderate right neuroforaminal stenosis. Left neuroforamen is patent. C7-T1: No significant central canal or neuroforaminal stenosis is identified. IMPRESSION: Multilevel cervical spondylosis with multilevel central canal and neuroforaminal stenosis, described level by level above. Dictated by: Dictated on workstation # [id number]
== END ==
LOC: RAD 12:52
PROVIDERS: ATTEND Nurse Practitioner
DX: M48.02 Spinal stenosis, cervical region (principal); M47.812 Spondylosis without myelopathy or radiculopathy, cervical region; M50.30 Other cervical disc degeneration, unspecified cervical region
CPT/HCPCS: 72141

== ENCOUNTER 2019-05-23 13:11 | Outpatient (RCR) | payer MEDICARE ==
[2019-02-24 10:44] LABS: BASOPHILS # (AUTO) 0.1 10^3/uL (0.0-0.1); BASOPHILS % (AUTO) 2 % (0-10); EOSINOPHILS # (AUTO) 0.3 10^3/uL (0.0-0.3); EOSINOPHILS % (AUTO) 6 % (0-10); HEMATOCRIT 36 % (40-54); HEMOGLOBIN 11.4 G/DL (13.3-17.7); LYMPHOCYTES # (AUTO) 0.6 X 10^3 (1.0-4.0); LYMPHOCYTES % (AUTO) 14 % (12-44); MEAN CORPUSCULAR HEMOGLOBIN 29 PG (25-34); MEAN CORPUSCULAR HGB CONC 32 G/DL (32-36); MEAN CORPUSCULAR VOLUME 91 FL (80-99); MEAN PLATELET VOLUME 11.4 FL (7.4-10.4); MONOCYTES # (AUTO) 0.6 X 10^3 (0.0-1.0); MONOCYTES % (AUTO) 15 % (0-12); NEUTROPHILS # (AUTO) 2.6 X 10^3 (1.8-7.8); NEUTROPHILS % (AUTO) 63 % (42-75); PLATELET COUNT 123 10^3/uL (130-400); RED CELL DISTRIBUTION WIDTH 15.9 % (10.0-14.5); WHITE BLOOD COUNT 4.2 10^3/uL (4.3-11.0)
[2019-02-24 11:05] LABS: ALANINE AMINOTRANSFERASE 17 U/L (0-55); ALBUMIN 4.1 GM/DL (3.2-4.5); ALKALINE PHOSPHATASE 112 U/L (40-136); BILIRUBIN,TOTAL 0.5 MG/DL (0.1-1.0); BUN/CREATININE RATIO 12; CALCIUM 8.8 MG/DL (8.5-10.1); CARBON DIOXIDE 25 MMOL/L (21-32); CHLORIDE 106 MMOL/L (98-107); CREATININE SERUM 0.91 MG/DL (0.60-1.30); GFR ESTIMATED > 60; GLUCOSE 131 MG/DL (70-105); POTASSIUM 4.1 MMOL/L (3.6-5.0); SODIUM 141 MMOL/L (135-145); TOTAL PROTEIN 6.4 GM/DL (6.4-8.2)
[2019-05-23 13:35] LABS: BASOPHILS # (AUTO) 0.1 10^3/uL (0.0-0.1); BASOPHILS % (AUTO) 1 % (0-10); EOSINOPHILS # (AUTO) 0.2 10^3/uL (0.0-0.3); EOSINOPHILS % (AUTO) 4 % (0-10); HEMATOCRIT 41 % (40-54); HEMOGLOBIN 12.6 G/DL (13.3-17.7); LYMPHOCYTES # (AUTO) 0.7 X 10^3 (1.0-4.0); LYMPHOCYTES % (AUTO) 11 % (12-44); MEAN CORPUSCULAR HEMOGLOBIN 28 PG (25-34); MEAN CORPUSCULAR HGB CONC 31 G/DL (32-36); MEAN CORPUSCULAR VOLUME 91 FL (80-99); MEAN PLATELET VOLUME 11.2 FL (7.4-10.4); MONOCYTES # (AUTO) 0.8 X 10^3 (0.0-1.0); MONOCYTES % (AUTO) 12 % (0-12); NEUTROPHILS # (AUTO) 4.5 X 10^3 (1.8-7.8); NEUTROPHILS % (AUTO) 72 % (42-75); PLATELET COUNT 111 10^3/uL (130-400); RED CELL DISTRIBUTION WIDTH 14.8 % (10.0-14.5); WHITE BLOOD COUNT 6.2 10^3/uL (4.3-11.0)
[2019-05-23 13:55] LABS: ALBUMIN 4.5 GM/DL (3.2-4.5); BILIRUBIN,TOTAL 0.4 MG/DL (0.1-1.0); CALCIUM 9.3 MG/DL (8.5-10.1); CREATININE SERUM 1.35 MG/DL (0.60-1.30); POTASSIUM 4.1 MMOL/L (3.6-5.0)
== END 2019-05-25 | disposition home or self-care (01) ==
LOC: ONC 13:11
PROVIDERS: ATTEND Internal Medicine Hematology & Oncology
DX: D50.9 Iron deficiency anemia, unspecified (principal); D61.818 Other pancytopenia; I48.91 Unspecified atrial fibrillation; E03.9 Hypothyroidism, unspecified; K59.00 Constipation, unspecified; G47.33 Obstructive sleep apnea (adult) (pediatric); Z79.899 Other long term (current) drug therapy
CPT/HCPCS: 36415; 80053; 82728; 83540; 84153; 85025; 99213

== ENCOUNTER 2019-08-18 10:53 | Outpatient (RCR) | payer MEDICARE ==
[2019-08-18 11:20] LABS: BASOPHILS % (AUTO) 1 % (0-10); EOSINOPHILS # (AUTO) 0.3 10^3/uL (0.0-0.3); EOSINOPHILS % (AUTO) 6 % (0-10); HEMATOCRIT 37 % (40-54); HEMOGLOBIN 11.5 G/DL (13.3-17.7); LYMPHOCYTES # (AUTO) 0.8 X 10^3 (1.0-4.0); LYMPHOCYTES % (AUTO) 19 % (12-44); MEAN CORPUSCULAR HEMOGLOBIN 28 PG (25-34); MEAN CORPUSCULAR HGB CONC 31 G/DL (32-36); MEAN CORPUSCULAR VOLUME 92 FL (80-99); MONOCYTES # (AUTO) 0.6 X 10^3 (0.0-1.0); MONOCYTES % (AUTO) 14 % (0-12); NEUTROPHILS # (AUTO) 2.4 X 10^3 (1.8-7.8); NEUTROPHILS % (AUTO) 60 % (42-75); PLATELET COUNT 95 10^3/uL (130-400); RED CELL DISTRIBUTION WIDTH 14.4 % (10.0-14.5)
[2019-08-18 11:38] LABS: ALBUMIN 4.1 GM/DL (3.2-4.5); BILIRUBIN,TOTAL 0.4 MG/DL (0.1-1.0); CALCIUM 9.1 MG/DL (8.5-10.1); CREATININE SERUM 1.16 MG/DL (0.60-1.30); TOTAL PROTEIN 6.7 GM/DL (6.4-8.2)
== END 2019-08-24 | disposition home or self-care (01) ==
LOC: ONC 10:53
PROVIDERS: ATTEND Internal Medicine Hematology & Oncology
DX: D50.8 Other iron deficiency anemias (principal); D61.818 Other pancytopenia; I48.91 Unspecified atrial fibrillation; E03.9 Hypothyroidism, unspecified; Z79.899 Other long term (current) drug therapy; Z98.890 Other specified postprocedural states; Z95.1 Presence of aortocoronary bypass graft
CPT/HCPCS: 80053; 82728; 83540; 84443; 85025; 99213

== ENCOUNTER 2019-08-25 10:17 | Outpatient (RCR) | payer MEDICARE | END 2019-11-23 | disposition home or self-care (01) | LOC: ONC 10:17 | PROVIDERS: ATTEND Internal Medicine Hematology & Oncology | DX: D50.8 Other iron deficiency anemias (principal); D61.818 Other pancytopenia; I48.91 Unspecified atrial fibrillation; E03.9 Hypothyroidism, unspecified; D69.6 Thrombocytopenia, unspecified; Z98.890 Other specified postprocedural states; Z95.1 Presence of aortocoronary bypass graft; Z80.1 Family history of malignant neoplasm of trachea, bronchus and lung | CPT/HCPCS: 99213 ==

== ENCOUNTER → 2019-12-22 | Outpatient (CLI) | payer MEDICARE ==
[~2019-12-22] MED LIST changes: +HOLD METFORMIN - RECEIVED CONTRAST 20 ML VIAL IV SCH; +IOHEXOL 350 MG/ML 100 ML (OMNIPAQUE 350) VIAL IV ONE; +NS 100 ML (IVPB) BAG IV ONE
[2019-12-22 08:57] LABS: CREATININE SERUM 1.24 MG/DL (0.60-1.30)
--- NOTE | 2019-12-22 09:57 | Diagnostic Imaging Report ---
PROCEDURE: CT neck soft tissue with contrast. TECHNIQUE: Multiple contiguous axial images were obtained through the neck after the administration of contrast. Auto Exposure Controls were utilized during the CT exam to meet ALARA standards for radiation dose reduction. INDICATION: Difficulty swallowing and globus sensation. No prior studies are available for comparison. The visualized intracranial structures are unremarkable. The posterior nasal pharynx and oropharynx are unremarkable. The parapharyngeal fat planes are preserved. The epiglottis and larynx appear unremarkable. No thyroid mass is detected. The submandibular and parotid glands appear to be symmetric. No cervical lymphadenopathy is detected. Imaging through the lung apices demonstrates biapical pleural-parenchymal scarring. IMPRESSION: Essentially unremarkable CT soft tissue neck study. No discrete mass or lymphadenopathy is detected. Dictated by: Dictated on workstation # [id number]
== END ==
LOC: RAD 08:22
PROVIDERS: ATTEND Otolaryngology Otolaryngology/Facial Plastic Surgery
DX: R13.10 Dysphagia, unspecified (principal)
CPT/HCPCS: 36415; 70491; 82565; 84520

== ENCOUNTER → 2020-01-04 | Outpatient (CLI) | payer MEDICARE ==
[~2020-01-04] MED LIST changes: +BARIUM for suspension 96% w/w (Vanilla Silq Medium Density) PO ONE; +BARIUM for suspension 98% w/w (Vanilla Silq High Density) PO ONE; -HOLD METFORMIN - RECEIVED CONTRAST 20 ML VIAL IV SCH; -IOHEXOL 350 MG/ML 100 ML (OMNIPAQUE 350) VIAL IV ONE; -NS 100 ML (IVPB) BAG IV ONE
--- NOTE | 2020-01-04 10:06 | Diagnostic Imaging Report ---
INDICATION: Dysphagia. TECHNIQUE: The patient ingested effervescent crystals as well as thin and thick barium and imaging of the esophagus was performed. A total of 1 minute and 2 seconds of fluoroscopic time was utilized. FINDINGS: The preliminary radiograph of the chest demonstrates postop changes of median sternotomy and CABG. There is some right hemidiaphragmatic elevation. Post ingestion images demonstrate some minimal laryngeal penetration during swallowing of thick barium. No definite aspiration was observed. The esophagus has a fairly smooth contour. No definite mass or stricture is identified. No hiatal hernia or gastroesophageal reflux was demonstrated. IMPRESSION: Unremarkable esophagram. Dictated by: Dictated on workstation # [id number]
== END ==
LOC: RAD 09:03
PROVIDERS: ATTEND Otolaryngology Otolaryngology/Facial Plastic Surgery
DX: R13.10 Dysphagia, unspecified (principal); R44.8 Other symptoms and signs involving general sensations and perceptions
CPT/HCPCS: 74220

== ENCOUNTER 2020-03-22 15:30 | Outpatient (RCR) | payer MEDICARE ==
[2019-12-29 14:40] LABS: BASOPHILS % (AUTO) 1 % (0-10); EOSINOPHILS # (AUTO) 0.2 10^3/uL (0.0-0.3); EOSINOPHILS % (AUTO) 5 % (0-10); HEMATOCRIT 35 % (40-54); HEMOGLOBIN 10.7 G/DL (13.3-17.7); LYMPHOCYTES # (AUTO) 0.9 X 10^3 (1.0-4.0); LYMPHOCYTES % (AUTO) 18 % (12-44); MEAN CORPUSCULAR HEMOGLOBIN 28 PG (25-34); MEAN CORPUSCULAR HGB CONC 31 G/DL (32-36); MEAN CORPUSCULAR VOLUME 92 FL (80-99); MEAN PLATELET VOLUME 11.8 FL (7.4-10.4); MONOCYTES # (AUTO) 0.8 X 10^3 (0.0-1.0); MONOCYTES % (AUTO) 17 % (0-12); NEUTROPHILS # (AUTO) 2.7 X 10^3 (1.8-7.8); NEUTROPHILS % (AUTO) 59 % (42-75); PLATELET COUNT 117 10^3/uL (130-400); WHITE BLOOD COUNT 4.7 10^3/uL (4.3-11.0)
[2019-12-29 14:56] LABS: ALBUMIN 4.1 GM/DL (3.2-4.5); BILIRUBIN,TOTAL 0.5 MG/DL (0.1-1.0); CALCIUM 8.8 MG/DL (8.5-10.1); CREATININE SERUM 1.5 MG/DL (0.60-1.30); POTASSIUM 4.5 MMOL/L (3.6-5.0); TOTAL PROTEIN 6.5 GM/DL (6.4-8.2)
[~2020-03-22 15:30] MED LIST changes: -BARIUM for suspension 96% w/w (Vanilla Silq Medium Density) PO ONE; -BARIUM for suspension 98% w/w (Vanilla Silq High Density) PO ONE
[2020-03-22 15:43] LABS: BASOPHILS % (AUTO) 1 % (0-10); EOSINOPHILS # (AUTO) 0.3 10^3/uL (0.0-0.3); EOSINOPHILS % (AUTO) 5 % (0-10); HEMATOCRIT 36 % (40-54); LYMPHOCYTES # (AUTO) 0.9 X 10^3 (1.0-4.0); LYMPHOCYTES % (AUTO) 19 % (12-44); MEAN CORPUSCULAR HEMOGLOBIN 27 PG (25-34); MEAN CORPUSCULAR HGB CONC 31 G/DL (32-36); MEAN CORPUSCULAR VOLUME 89 FL (80-99); MONOCYTES # (AUTO) 0.7 X 10^3 (0.0-1.0); MONOCYTES % (AUTO) 14 % (0-12); NEUTROPHILS # (AUTO) 2.8 X 10^3 (1.8-7.8); NEUTROPHILS % (AUTO) 60 % (42-75); PLATELET COUNT 123 10^3/uL (130-400); WHITE BLOOD COUNT 4.7 10^3/uL (4.3-11.0)
[2020-03-22 16:02] LABS: ALANINE AMINOTRANSFERASE 16 U/L (0-55); ALBUMIN 4.2 GM/DL (3.2-4.5); ALKALINE PHOSPHATASE 92 U/L (40-136); BILIRUBIN,TOTAL 0.2 MG/DL (0.1-1.0); BUN/CREATININE RATIO 14; CALCIUM 8.8 MG/DL (8.5-10.1); CARBON DIOXIDE 33 MMOL/L (21-32); CHLORIDE 107 MMOL/L (98-107); CREATININE SERUM 1.09 MG/DL (0.60-1.30); GFR ESTIMATED > 60; GLUCOSE 84 MG/DL (70-105); POTASSIUM 4.2 MMOL/L (3.6-5.0); SODIUM 143 MMOL/L (135-145); TOTAL PROTEIN 6.8 GM/DL (6.4-8.2)
== END 2020-03-28 | disposition home or self-care (01) ==
LOC: ONC 15:30
PROVIDERS: ATTEND Internal Medicine Hematology & Oncology
DX: D50.8 Other iron deficiency anemias (principal); D61.818 Other pancytopenia; I48.91 Unspecified atrial fibrillation; E03.8 Other specified hypothyroidism; D69.6 Thrombocytopenia, unspecified; Z98.890 Other specified postprocedural states; Z95.1 Presence of aortocoronary bypass graft; Z80.1 Family history of malignant neoplasm of trachea, bronchus and lung
CPT/HCPCS: 80053; 82728; 83540; 85025; 99213

== ENCOUNTER 2020-06-18 14:09 | Outpatient (RCR) | payer MEDICARE ==
[~2020-06-18 14:09] MED LIST changes: -AMIO200T4 PO; +AMIO200T6 PO; +AMLO-251 PO; -AMLO10TA7 PO
[2020-06-18 14:13] LABS: BASOPHILS # (AUTO) 0.1 10^3/uL (0.0-0.1); BASOPHILS % (AUTO) 1 % (0-10); EOSINOPHILS # (AUTO) 0.2 10^3/uL (0.0-0.3); EOSINOPHILS % (AUTO) 2 % (0-10); HEMATOCRIT 38 % (40-54); HEMOGLOBIN 11.6 g/dL (13.3-17.7); LYMPHOCYTES # (AUTO) 1.2 10^3/uL (1.0-4.0); LYMPHOCYTES % (AUTO) 14 % (12-44); MEAN CORPUSCULAR HEMOGLOBIN 28 pg (25-34); MEAN CORPUSCULAR HGB CONC 31 g/dL (32-36); MEAN CORPUSCULAR VOLUME 91 fL (80-99); MEAN PLATELET VOLUME 12.8 fL (9.0-12.2); MONOCYTES # (AUTO) 1.2 10^3/uL (0.0-1.0); MONOCYTES % (AUTO) 14 % (0-12); NEUTROPHILS # (AUTO) 5.9 10^3/uL (1.8-7.8); NEUTROPHILS % (AUTO) 67 % (42-75); PLATELET COUNT 142 10^3/uL (130-400); WHITE BLOOD COUNT 8.8 10^3/uL (4.3-11.0)
[2020-06-18 14:39] LABS: ALBUMIN 4.1 GM/DL (3.2-4.5); BILIRUBIN,TOTAL 0.4 MG/DL (0.1-1.0); CALCIUM 8.8 MG/DL (8.5-10.1); CREATININE SERUM 1.35 MG/DL (0.60-1.30); POTASSIUM 4.1 MMOL/L (3.6-5.0); TOTAL PROTEIN 6.7 GM/DL (6.4-8.2)
== END 2020-06-27 | disposition home or self-care (01) ==
LOC: ONC 14:09
PROVIDERS: ATTEND Internal Medicine Hematology & Oncology
DX: D50.8 Other iron deficiency anemias (principal); D61.818 Other pancytopenia; I48.91 Unspecified atrial fibrillation; E03.8 Other specified hypothyroidism; D69.6 Thrombocytopenia, unspecified; Z98.890 Other specified postprocedural states; Z95.1 Presence of aortocoronary bypass graft; Z80.1 Family history of malignant neoplasm of trachea, bronchus and lung
CPT/HCPCS: 80053; 82728; 83540; 84443; 85025; 99213

== ENCOUNTER 2020-09-24 13:18 | Outpatient (RCR) | payer MEDICARE ==
[2020-09-19 15:30] LABS: BASOPHILS # (AUTO) 0.1 10^3/uL (0.0-0.1); BASOPHILS % (AUTO) 1 % (0-10); EOSINOPHILS # (AUTO) 0.2 10^3/uL (0.0-0.3); EOSINOPHILS % (AUTO) 4 % (0-10); HEMATOCRIT 36 % (40-54); HEMOGLOBIN 10.7 g/dL (13.3-17.7); LYMPHOCYTES # (AUTO) 0.7 10^3/uL (1.0-4.0); LYMPHOCYTES % (AUTO) 17 % (12-44); MEAN CORPUSCULAR HEMOGLOBIN 27 pg (25-34); MEAN CORPUSCULAR HGB CONC 30 g/dL (32-36); MEAN CORPUSCULAR VOLUME 91 fL (80-99); MONOCYTES # (AUTO) 0.6 10^3/uL (0.0-1.0); MONOCYTES % (AUTO) 15 % (0-12); NEUTROPHILS # (AUTO) 2.6 10^3/uL (1.8-7.8); NEUTROPHILS % (AUTO) 62 % (42-75); PLATELET COUNT 112 10^3/uL (130-400); WHITE BLOOD COUNT 4.2 10^3/uL (4.3-11.0)
[2020-09-19 15:47] LABS: ALBUMIN 3.8 GM/DL (3.2-4.5); BILIRUBIN,TOTAL 0.3 MG/DL (0.1-1.0); CALCIUM 8.5 MG/DL (8.5-10.1); CREATININE SERUM 1.16 MG/DL (0.60-1.30); TOTAL PROTEIN 5.8 GM/DL (6.4-8.2)
[2020-11-12] MEDS ORDERED: CYANOCOBALAMIN INJ 1000 MCG/ML (CANCER CENTER) ONE (10:32)
== END 2020-12-18 | disposition home or self-care (01) ==
LOC: ONC 13:18
PROVIDERS: ATTEND Internal Medicine Hematology & Oncology
DX: D50.9 Iron deficiency anemia, unspecified (principal); D61.818 Other pancytopenia; D69.6 Thrombocytopenia, unspecified; I48.91 Unspecified atrial fibrillation; E03.9 Hypothyroidism, unspecified
CPT/HCPCS: 80053; 82728; 83540; 85025; 99213

== ENCOUNTER 2021-04-23 14:34 | Outpatient (RCR) | payer MEDICARE ==
[2021-03-21 15:33] LABS: BASOPHILS # (AUTO) 0.1 10^3/uL (0.0-0.1); BASOPHILS % (AUTO) 1 % (0-10); EOSINOPHILS # (AUTO) 0.3 10^3/uL (0.0-0.3); EOSINOPHILS % (AUTO) 6 % (0-10); HEMATOCRIT 33 % (40-54); HEMOGLOBIN 9.9 g/dL (13.3-17.7); LYMPHOCYTES % (AUTO) 18 % (12-44); MEAN CORPUSCULAR HEMOGLOBIN 27 pg (25-34); MEAN CORPUSCULAR HGB CONC 30 g/dL (32-36); MEAN CORPUSCULAR VOLUME 90 fL (80-99); MEAN PLATELET VOLUME 12.8 fL (9.0-12.2); MONOCYTES # (AUTO) 0.9 10^3/uL (0.0-1.0); MONOCYTES % (AUTO) 17 % (0-12); NEUTROPHILS % (AUTO) 57 % (42-75); PLATELET COUNT 134 10^3/uL (130-400); WHITE BLOOD COUNT 5.2 10^3/uL (4.3-11.0)
[2021-03-21 15:46] LABS: BILIRUBIN,TOTAL 0.3 MG/DL (0.1-1.0); CREATININE SERUM 1.1 MG/DL (0.60-1.30); POTASSIUM 4.3 MMOL/L (3.6-5.0); TOTAL PROTEIN 6.3 GM/DL (6.4-8.2)
[2021-04-18 14:17] LABS: BASOPHILS # (AUTO) 0.1 10^3/uL (0.0-0.1); BASOPHILS % (AUTO) 1 % (0-10); EOSINOPHILS # (AUTO) 0.3 10^3/uL (0.0-0.3); EOSINOPHILS % (AUTO) 5 % (0-10); HEMATOCRIT 33 % (40-54); HEMOGLOBIN 10.1 g/dL (13.3-17.7); LYMPHOCYTES # (AUTO) 0.8 10^3/uL (1.0-4.0); LYMPHOCYTES % (AUTO) 16 % (12-44); MEAN CORPUSCULAR HEMOGLOBIN 27 pg (25-34); MEAN CORPUSCULAR HGB CONC 31 g/dL (32-36); MEAN CORPUSCULAR VOLUME 89 fL (80-99); MEAN PLATELET VOLUME 12.1 fL (9.0-12.2); MONOCYTES # (AUTO) 0.8 10^3/uL (0.0-1.0); MONOCYTES % (AUTO) 15 % (0-12); NEUTROPHILS # (AUTO) 3.1 10^3/uL (1.8-7.8); NEUTROPHILS % (AUTO) 62 % (42-75); PLATELET COUNT 115 10^3/uL (130-400)
[2021-04-18 14:42] LABS: BILIRUBIN,TOTAL 0.3 MG/DL (0.1-1.0); CALCIUM 8.9 MG/DL (8.5-10.1); CREATININE SERUM 1.14 MG/DL (0.60-1.30); POTASSIUM 4.5 MMOL/L (3.6-5.0); TOTAL PROTEIN 6.5 GM/DL (6.4-8.2)
[~2021-04-23 14:34] MED LIST changes: -AMIO200T6 PO; +AMIO200T65 PO; +CYANOCOBALAMIN INJ 1000 MCG/ML (CANCER CENTER) ONE
== END 2021-06-19 | disposition home or self-care (01) ==
LOC: ONC 14:34
PROVIDERS: ATTEND Internal Medicine Hematology & Oncology
DX: D50.9 Iron deficiency anemia, unspecified (principal); D61.818 Other pancytopenia; D69.6 Thrombocytopenia, unspecified; I48.91 Unspecified atrial fibrillation; E03.9 Hypothyroidism, unspecified
CPT/HCPCS: 80053; 82607; 82728; 83540; 83550; 85025; 96372; 99213

== ENCOUNTER 2021-07-10 15:31 | Outpatient (RCR) | payer MEDICARE ==
[~2021-07-10 15:31] MED LIST changes: -CYANOCOBALAMIN INJ 1000 MCG/ML (CANCER CENTER) ONE
[2021-07-10 15:49] LABS: BASOPHILS # (AUTO) 0.1 10^3/uL (0.0-0.1); BASOPHILS % (AUTO) 1 % (0-10); EOSINOPHILS # (AUTO) 0.2 10^3/uL (0.0-0.3)
[2021-07-10 15:51] LABS: EOSINOPHILS % (AUTO) 5 % (0-10); HEMATOCRIT 33 % (40-54); HEMOGLOBIN 9.8 g/dL (13.3-17.7); LYMPHOCYTES # (AUTO) 0.7 10^3/uL (1.0-4.0); LYMPHOCYTES % (AUTO) 14 % (12-44); MEAN CORPUSCULAR HEMOGLOBIN 26 pg (25-34); MEAN CORPUSCULAR HGB CONC 30 g/dL (32-36); MEAN CORPUSCULAR VOLUME 88 fL (80-99); MEAN PLATELET VOLUME 11.4 fL (9.0-12.2); MONOCYTES # (AUTO) 0.6 10^3/uL (0.0-1.0); MONOCYTES % (AUTO) 13 % (0-12); NEUTROPHILS # (AUTO) 3.1 10^3/uL (1.8-7.8); NEUTROPHILS % (AUTO) 67 % (42-75); PLATELET COUNT 128 10^3/uL (130-400); WHITE BLOOD COUNT 4.7 10^3/uL (4.3-11.0)
[2021-07-10 16:09] LABS: ALBUMIN 3.9 GM/DL (3.2-4.5); BILIRUBIN,TOTAL 0.3 MG/DL (0.1-1.0); CALCIUM 8.8 MG/DL (8.5-10.1); CREATININE SERUM 1.11 MG/DL (0.60-1.30); TOTAL PROTEIN 6.3 GM/DL (6.4-8.2)
== END 2021-07-12 | disposition still patient (30) ==
LOC: ONC 15:31
PROVIDERS: ATTEND Internal Medicine Hematology & Oncology
DX: D50.9 Iron deficiency anemia, unspecified (principal); D61.818 Other pancytopenia; D69.6 Thrombocytopenia, unspecified; I48.91 Unspecified atrial fibrillation; E03.9 Hypothyroidism, unspecified
CPT/HCPCS: 80053; 82728; 83540; 83550; 85025

== ENCOUNTER 2021-08-08 15:43 | Outpatient (RCR) | payer MEDICARE ==
[2021-08-08 15:58] LABS: BASOPHILS # (AUTO) 0.1 10^3/uL (0.0-0.1); BASOPHILS % (AUTO) 1 % (0-10); EOSINOPHILS # (AUTO) 0.3 10^3/uL (0.0-0.3); EOSINOPHILS % (AUTO) 6 % (0-10); HEMATOCRIT 35 % (40-54); HEMOGLOBIN 10.3 g/dL (13.3-17.7); LYMPHOCYTES # (AUTO) 0.7 X 10^3 (1.0-4.0); LYMPHOCYTES % (AUTO) 14 % (12-44); MEAN CORPUSCULAR HEMOGLOBIN 27 pg (25-34); MEAN CORPUSCULAR HGB CONC 29 g/dL (32-36); MEAN CORPUSCULAR VOLUME 91 fL (80-99); MEAN PLATELET VOLUME 12.5 fL (9.0-12.2); MONOCYTES # (AUTO) 0.7 X 10^3 (0.0-1.0); MONOCYTES % (AUTO) 15 % (0-12); NEUTROPHILS # (AUTO) 3.1 X 10^3 (1.8-7.8); NEUTROPHILS % (AUTO) 63 % (42-75); PLATELET COUNT 142 10^3/uL (130-400)
[2021-08-08 16:21] LABS: ALBUMIN 4.1 GM/DL (3.2-4.5); BILIRUBIN,TOTAL 0.5 MG/DL (0.1-1.0); CALCIUM 8.9 MG/DL (8.5-10.1); CREATININE SERUM 1.13 MG/DL (0.60-1.30); TOTAL PROTEIN 6.7 GM/DL (6.4-8.2)
== END 2021-08-12 | disposition home or self-care (01) ==
LOC: ONC 15:43
PROVIDERS: ATTEND Internal Medicine Hematology & Oncology
DX: D50.9 Iron deficiency anemia, unspecified (principal); D61.818 Other pancytopenia; D69.6 Thrombocytopenia, unspecified; I48.91 Unspecified atrial fibrillation; E03.9 Hypothyroidism, unspecified
CPT/HCPCS: 80053; 82728; 83540; 83550; 85025; 99213

== ENCOUNTER 2021-08-19 13:14 | Outpatient (RCR) | payer MEDICARE | END 2021-09-09 | disposition home or self-care (01) | LOC: ONC 13:14 | PROVIDERS: ATTEND Internal Medicine Hematology & Oncology | DX: D50.9 Iron deficiency anemia, unspecified (principal); D61.818 Other pancytopenia; D69.6 Thrombocytopenia, unspecified; I48.91 Unspecified atrial fibrillation; E03.9 Hypothyroidism, unspecified | CPT/HCPCS: 99213 ==

== ENCOUNTER 2021-09-18 13:21 | Outpatient (RCR) | payer MEDICARE ==
[2021-09-12 15:31] LABS: BASOPHILS # (AUTO) 0.1 10^3/uL (0.0-0.1); BASOPHILS % (AUTO) 1 % (0-10); EOSINOPHILS # (AUTO) 0.3 10^3/uL (0.0-0.3); EOSINOPHILS % (AUTO) 6 % (0-10); HEMATOCRIT 34 % (40-54); HEMOGLOBIN 10.6 g/dL (13.3-17.7); LYMPHOCYTES # (AUTO) 0.9 10^3/uL (1.0-4.0); LYMPHOCYTES % (AUTO) 16 % (12-44); MEAN CORPUSCULAR HEMOGLOBIN 27 pg (25-34); MEAN CORPUSCULAR HGB CONC 31 g/dL (32-36); MEAN CORPUSCULAR VOLUME 88 fL (80-99); MEAN PLATELET VOLUME 12.8 fL (9.0-12.2); MONOCYTES # (AUTO) 0.9 10^3/uL (0.0-1.0); MONOCYTES % (AUTO) 16 % (0-12); NEUTROPHILS # (AUTO) 3.2 10^3/uL (1.8-7.8); NEUTROPHILS % (AUTO) 60 % (42-75); PLATELET COUNT 170 10^3/uL (130-400); WHITE BLOOD COUNT 5.3 10^3/uL (4.3-11.0)
[2021-09-12 16:02] LABS: ALBUMIN 4.2 GM/DL (3.2-4.5); BILIRUBIN,TOTAL 0.5 MG/DL (0.1-1.0); CALCIUM 8.7 MG/DL (8.5-10.1); CREATININE SERUM 1.47 MG/DL (0.60-1.30); POTASSIUM 4.5 MMOL/L (3.6-5.0); TOTAL PROTEIN 6.6 GM/DL (6.4-8.2)
== END 2021-10-10 | disposition home or self-care (01) ==
LOC: ONC 13:21
PROVIDERS: ATTEND Internal Medicine Hematology & Oncology
DX: Z45.2 Encounter for adjustment and management of vascular access device (principal); D50.9 Iron deficiency anemia, unspecified; D61.818 Other pancytopenia; D69.6 Thrombocytopenia, unspecified; I48.91 Unspecified atrial fibrillation; E03.9 Hypothyroidism, unspecified
CPT/HCPCS: 36415; 80053; 82728; 83540; 83550; 85025; 99213

== ENCOUNTER 2021-10-23 16:22 | Observation (INO) | payer MEDICARE ==
[~2021-10-23] VITALS: Ht 187 cm; Wt 77.1 kg
--- NOTE | 2021-10-23 16:52 | ED Upper Extremity ---
General Chief Complaint: Upper Extremity Stated Complaint: FALL Nursing Triage Note: PT PRESENTS TO ED VIA EMS FROM HOME FOR R ARM PAIN AND L KNEE PAIN AFTER TRIPPING OVER A HOSE AND FALLING OUTSIDE HIS HOME. PT DENIES HITTING HEAD OR LOC. Source: patient (FELIZ,LAVERNE MED STUDENT) History of Present Illness Date Seen by Provider: Oct 23, 2021 Time Seen by Provider: 16:38 Initial Comments Mr. Castro is a 86yo male with PMH triple bypass and on asprin and effient who presents to ED due to Fall. Fall happened right before he came into ER. States he tripped on a hose and fell, he doesn't remember if he hand his hands out in front or behind. He landed on his R shoulder and L knee. Has a moderate amount of pain in both. He was not able to walk after due to his knee pain. He does not drink, smoke, or use drugs. Did not hit his head, no LOC. (LAVERNE PIPER MED STUDENT) Allergies and Home Medications Allergies Coded Allergies: Sulfa (Sulfonamide Antibiotics) (Unverified Allergy, Unknown, 03/20/15) quinine (Unverified Allergy, Unknown, 01/16/15) Patient Home Medication List Home Medication List Reviewed: Yes (YOGESH COHEN MD) Amiodarone HCl (Amiodarone HCl) 200 Mg Tablet, 200 MG PO MO,,,FR,SA, (Reported) Entered as Reported by: ABEL HUGHES on 12/03/15 0936 Last Action: Continued Amlodipine Besylate (Amlodipine Besylate) 5 Mg Tablet, 5 MG PO DAILY, (Reported) Entered as Reported by: GUNNER RUTLEDGE on 10/24/21 0550 Last Action: Continued Aspirin (Aspirin EC) 81 Mg Tablet.dr, 81 MG PO JACKSON,,TH,SA, (Reported) Entered as Reported by: TARA WILLARD on 10/24/21 1355 Aspirin (Aspirin EC) 81 Mg Tablet.dr, 162 MG PO MO,,FR, (Reported) Entered as Reported by: TARA WILLARD on 10/24/21 1355 Bupropion HCl (Bupropion Xl) 300 Mg Tab.er.24h, 300 MG PO DAILY, (Reported) Entered as Reported by: GUNNER RUTLEDGE on 10/24/21543 Last Action: Converted Cyanocobalamin (Cyanocobalamin Injection) 1,000 Mcg/Ml Inj, 1,000 MCG IJ MONTHLY, (Reported) Entered as Reported by: ONELIA JONES on 07/01/161244 Last Action: Continued Ferrous Sulfate (Ferrous Sulfate) 220 Mg/5 Ml Elixir, 15 ML PO DAILY, (Reported) Entered as Reported by: TARA WILLARD on 10/24/21 1438 Finasteride (Finasteride) 5 Mg Tablet, 5 MG PO HS, (Reported) Entered as Reported by: ONELIA JONES on 07/01/161244 Last Action: Continued Isosorbide Mononitrate (Isosorbide Mononitrate ER) 60 Mg Tab, 60 MG PO BID, (Reported) Entered as Reported by: GUNNER RUTLEDGE on 10/24/2149 Last Action: Continued Levothyroxine Sodium (Levothyroxine Sodium) 175 Mcg Tablet, 175 MCG PO DAILY, (Reported) Entered as Reported by: GUNNER RUTLEDGE on 10/24/2142 Last Action: Converted Losartan Potassium (Losartan Potassium) 100 Mg Tablet, 100 MG PO DAILY, (Reported) Entered as Reported by: GUNNER RUTLEDGE on 10/24/21550 Last Action: Continued Omeprazole (Omeprazole) 40 Mg Capsule.dr, 40 MG PO HS, (Reported) Entered as Reported by: GUNNER RUTLEDGE on 10/24/21546 Last Action: Converted Prasugrel HCl (Prasugrel HCl) 10 Mg Tablet, 10 MG PO DAILY, (Reported) Entered as Reported by: GUNNER RUTLEDGE on 10/24/21543 Last Action: Continued Vit A/C/E/Zinc/Co (Preservision Areds Softgel) 1 Cap Capsule, 1 CAP PO BID, (Reported) Entered as Reported by: GUNNER RUTLEDGE on 10/24/21553 Last Action: Continued Discontinued Medications Amlodipine Besylate (Amlodipine Besylate) 10 Mg Tablet, 10 MG PO DAILY, (Reported) Discontinued Reason: No Longer Taking Entered as Reported by: ONELIA JONES on 07/01/161244 Last Action: Discontinued Apixaban (Eliquis) 2.5 Mg Tablet, 2.5 MG PO BID, (Reported) Discontinued Reason: No Longer Taking Entered as Reported by: ONELIA JONES on 07/01/16 1245 Atorvastatin Calcium (Lipitor Tablet) 10 Mg Tablet, 10 MG PO HS, (Reported) Discontinued Reason: No Longer Taking Entered as Reported by: DELIA AHUJA on 01/16/15747 Last Action: Continued Ferrous Sulfate (Ferrous Sulfate) 325 Mg Tablet, 325 MG PO HS, (Reported) Discontinued Reason: Prescription changed Entered as Reported by: ABEL HUGHES on 12/03/15935 Last Action: Continued Isosorbide Mononitrate (Isosorbide Mononitrate Er) 60 Mg Tab.er.24h, 60 MG PO BID, (Reported) Discontinued Reason: Duplicate Order Entered as Reported by: DELIA AHUJA on 01/16/15747 Last Action: Discontinued Levothyroxine Sodium (Levothyroxine 125 Mcg Tab) 125 Mcg Tablet, 150 MCG PO DAILY, (Reported) Discontinued Reason: No Longer Taking Entered as Reported by: DELIA AHUJA on 01/16/15747 Last Action: Discontinued Lorazepam (Lorazepam) 0.5 Mg Tablet, 0.5 MG PO BID PRN for ANXIETY, (Reported) Discontinued Reason: No Longer Taking Entered as Reported by: ABEL HUGHES on 12/03/15935 Last Action: Discontinued Prasugrel HCl (Effient) 10 Mg Tablet, 10 MG PO DAILY, (Reported) Discontinued Reason: Duplicate Order Entered as Reported by: ONELIA JONES on 07/01/16 1245 Last Action: Discontinued Review of Systems Constitutional: No chills, No fever Respiratory: No cough, No short of breath Cardiovascular: No chest pain, No palpitations Gastrointestinal: No abdominal pain, No nausea, No vomiting Genitourinary: No dysuria, No hematuria Musculoskeletal: joint pain (R shoulder, L knee), joint swelling (L knee) Skin: No lesions, No rash Psychiatric/Neurological: Denies Headache, Denies Numbness (LAVERNE PIPER MED STUDENT) Past Fpagjsi-Vzlodr-Bejbwb Hx Patient Social History Tobacco Use?: No Substance use?: No Alcohol Use?: No Pt feels they are or have been: No (LAVERNE PIPER MED STUDENT) Immunizations Up To Date COVID19 Vaccine 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 (LAVERNE PIPER STUDENT) Seasonal Allergies Seasonal Allergies: No (LAVERNE PIPER Histros STUDENT) Past Medical History Surgery/Hospitalization HX: PMH: HTN, AFIB, CABG, DEPRESSION CABG, Coronary Stent, Orthopedic Atrial Fibrillation, Coronary Artery Disease, High Cholesterol, Hypertension Arthritis, Back Injury, Chronic Back Pain Hypothyroidsim (LAVERNE PIPER STUDENT) Surgeries: Yes CABG, Coronary Stent, Orthopedic Respiratory: No Cardiac: Yes Coronary Artery Disease, High Cholesterol, Hypertension Neurological: No Reproductive Disorders: No Genitourinary: No Gastrointestinal: No Musculoskeletal: Yes Arthritis, Back Injury, Chronic Back Pain Endocrine: Yes Hypothyroidsim HEENT: No Cancer: No Psychosocial: Yes Depression (YOGESH COHEN MD) Physical Exam Vital Signs Vital Signs - First Documented 10/23/21 16:33 Temp 36.8 Pulse 71 Resp 16 B/P (MAP) 174/78 (110) Pulse Ox 94 (YOGESH COHEN MD) Vital Signs Capillary Refill : Less Than 3 Seconds (LAVERNE PIPER Histros STUDENT) Height, Weight, BMI Height: 6'2.00" Weight: 190lbs. 0.0oz. 86.402103ks; 22.00 BMI Method:Stated (LAVERNE PIPER Histros STUDENT) General Appearance: WD/WN, mild distress HEENT: PERRL/EOMI, normal ENT inspection Neck: non-tender, normal inspection Cardiovascular: regular rate, rhythm, no edema, no murmur Respiratory: lungs clear, normal breath sounds, no respiratory distress Gastrointestinal: non tender, soft Shoulder: bone tenderness, deformity, limited ROM, pain, swelling Elbow/Forearm: normal inspection, non-tender, no evidence of injury, normal ROM, Right Wrist: Yes normal inspection, Yes non-tender, Yes no evidence of injury, Yes normal ROM Hand: normal inspection, non-tender, no evidence of injury, normal ROM, Right Neurologic/Tendon: normal sensation, normal motor functions, normal tendon functions Neurologic/Psychiatric: 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 Pain with ROM. Anterior swelling. Distal exam unremarkable. (YOGESH COHEN MD) Procedures/Interventions Wound Location: Scalp Irrigated w/ Saline (ccs): 100 (YOGESH COHEN MD) Progress/Results/Core Measures Results/Orders My Orders (YOGESH COHEN MD) Medications Given in ED (YOGESH COHEN MD) Vital Signs/I&O (YOGESH COHEN MD) Blood Pressure Mean: 110 Progress Progress Note : Progress Note Patient was found to have a right humerus fracture and a left patellar fracture. These injuries were discussed with Dr. Chaparro Elliott. He did not believe either of these injuries would require surgical intervention. He recommended a knee immobilizer with weightbearing as tolerated and a sling with no weightbearing or use of the right arm. Inpatient consult was not necessary for management of these injuries, but he is happy to provide an inpatient consult if desired by the hospitalist staff. Patient was initially treated with fentanyl. This did not last long or provide sufficient pain control. Morphine and Percocet were added. I discussed CODE STATUS with the patient and his daughter. Patient wou ld like to permit short-term intubation and ventilator support if needed. However, he does not want cardiac resuscitation/CPR. Patient is being admitted for observation, primarily to receive PT services and training with adaptive equipment. Family will bring his medicines because he is being admitted as observation status. Patient required admission for PT and functional support due to the extent of functional limitations causes by significant injuries to two limbs. (YOGESH COHEN MD) Diagnostic Imaging Diagonstic Imaging: Xray Plain Films/CT/US/NM/MRI: other (Right shoulder) Comments Right shoulder x-ray viewed by me and report reviewed. See report below: NAME: HUYEN CASTRO [facility] REC#: [id number] PT STATUS: REG ER : 1935 PHYSICIAN: YOGESH COHEN MD ADMIT DATE: 10/23/21/ER Signed Date of Exam:10/23/21 SHOULDER, RIGHT, 3 VIEWS INDICATION: Right shoulder injury, pain and swelling. FINDINGS: Three views of the right shoulder demonstrate a nondisplaced fracture involving the lateral humeral head and a portion of the neck. The glenohumeral and AC joints are intact. IMPRESSION: Humeral head fracture. Dictated by: Dictated on workstation # [id number] Dict: 10/23/211750 Trans: 10/23/211805 [id number] Interpreted by: BEATA RITTER Electronically signed by: BEATA RITTER 10/23/211805 Diagonstic Imaging: Xray Plain Films/CT/US/NM/MRI: knee Comments Left knee x-ray viewed by me and report reviewed. See report below: NAME: HUYEN CASTRO [facility] REC#: [id number] PT STATUS: REG ER : 1935 PHYSICIAN: YOGESH COHEN MD ADMIT DATE: 10/23/21/ER Signed Date of Exam:10/23/21 KNEE, LEFT, 3 VIEWS INDICATION: Left knee injury, pain, swelling. FINDINGS: Three views of the left knee demonstrate nondisplaced transverse fracture across the superior aspect of the patella. There is moderate joint effusion and soft tissue swelling. Distal femur, proximal tibia, and fibula are intact. Atherosclerotic disease is present. IMPRESSION: Nondisplaced patellar fracture. Dictated by: Dictated on workstation # [id number] Dict: 10/23/211751 Trans: 10/23/211805 [facility] [id number] Interpreted by: BEATA RITTER Electronically signed by: BEATA RITTER 10/23/211805 (YOGESH COHEN MD) Departure Communication (Admissions) Time/Spoke to Admitting Phy: 18:36 Dr. Ware (YOGESH COHEN MD) Impression Primary Impression: Fracture of head of humerus Qualified Codes: S42.291A - Other displaced fracture of upper end of right humerus, initial encounter for closed fracture Additional Impressions: Patella fracture Qualified Codes: S82.001A - Unspecified fracture of right patella, initial encounter for closed fracture Fall on same level Qualified Codes: W18.30XA - Fall on same level, unspecified, initial encounter Disposition: ADMITTED INPATIENT Condition: Stable Admissions Decision to Admit Reason: Admit from ER (General) Decision to Admit/Date: Oct 23, 2021 Time/Decision to Admit Time: 18:36 (YOGESH COHEN MD) Departure-Patient Inst. Referrals: KAITLYN MULLINS DO (PCP/Family) Primary Care Physician Did you want me to finish your potatoes and rest I have personally interviewed and examined this patient along with Laverne Piper, MS4. I have reviewed student documentation including history, physical, and assessments. I agree with the documentation except where otherwise noted. (YOGESH COHEN MD) Copy Copies To 1: KAITLYN MULLINS DO Copies To 2: CHAPARRO ELLIOTT MD, DEREK MED STUDENT Oct 23, 2021 16:52 YOGESH COHEN MD Oct 23, 2021 19:05
[2021-10-23] MEDS ORDERED: fentaNYL INJ 100 MCG/2 ML AMP IVP ONE (17:00)
--- NOTE | 2021-10-23 17:56 | Diagnostic Imaging Report ---
INDICATION: Right shoulder injury, pain and swelling. FINDINGS: Three views of the right shoulder demonstrate a nondisplaced fracture involving the lateral humeral head and a portion of the neck. The glenohumeral and AC joints are intact. IMPRESSION: Humeral head fracture. Dictated by: Dictated on workstation # [id number]
--- NOTE | 2021-10-23 17:57 | Diagnostic Imaging Report ---
INDICATION: Left knee injury, pain, swelling. FINDINGS: Three views of the left knee demonstrate nondisplaced transverse fracture across the superior aspect of the patella. There is moderate joint effusion and soft tissue swelling. Distal femur, proximal tibia, and fibula are intact. Atherosclerotic disease is present. IMPRESSION: Nondisplaced patellar fracture. Dictated by: Dictated on workstation # [id number]
[2021-10-23] MEDS ORDERED: morphine INJ 10 MG/ML 1ML (SYR OR VIAL) IVP STA (18:35)
[2021-10-23] MEDS ORDERED: oxyCODONE/APAP 5/325MG (PERCOCET 5) TABLET PO ONE (18:45)
[2021-10-23 20:30] VITALS: BP 160/72
[2021-10-23] MEDS ORDERED: ANTACID SUSP 30 ML UDC (MYLANTA) PO PRN (21:00)
[2021-10-23] MEDS ORDERED: PATIENT MAY USE OWN MEDS, ALL PO SCH (21:00)
[2021-10-23] MEDS ORDERED: ONDANSETRON 4 MG (ZOFRAN) ORAL DISSOLVE TAB PO PRN (21:00)
[2021-10-23] MEDS ORDERED: ONDANSETRON 4 MG/2 ML (SDV) Z0FRAN IV PRN (21:00)
[2021-10-23] MEDS ORDERED: ISOSORBIDE MONONITRATE 60 MG (IMDUR) TAB PO SCH (21:00)
[2021-10-23] MEDS ORDERED: ACETAMINOPHEN 325 MG TABLET PO PRN (21:00)
[2021-10-23] MEDS ORDERED: polyethylene glycoL POWDER 17 GM (MIRALAX) PACK PO PRN (21:00)
[2021-10-23] MEDS ORDERED: MELATONIN 3 MG TABLET PO PRN (21:00)
[2021-10-23] MEDS ORDERED: morphine INJ 4 MG/ML 1 ML (VIAL/SYRINGE) IVP PRN (22:00)
[2021-10-23] MEDS: buPROPion SR 150 MG (WELLBUTRIN SR) TAB PO SCH (22:11)
[2021-10-23 23:29] VITALS: BP 151/69
[2021-10-24 03:30] VITALS: BP 134/67
[2021-10-24] MEDS ORDERED: LEVO175T5 PO (05:42)
[2021-10-24] MEDS ORDERED: PRAS10TA10 PO (05:44)
[2021-10-24] MEDS ORDERED: BUPR300T98 PO (05:44)
[2021-10-24] MEDS ORDERED: OMEP40CA6 PO (05:47)
[2021-10-24] MEDS ORDERED: ISOS60TA63 PO (05:49)
[2021-10-24] MEDS ORDERED: AMLO-250 PO (05:50)
[2021-10-24] MEDS ORDERED: LOSA100T57 PO (05:51)
[2021-10-24] MEDS ORDERED: VIT1CAPS5 PO (05:54)
[2021-10-24] MEDS ORDERED: LEVOTHYROXINE 150 MCG (LEVOTHROID) TAB PO SCH ×2 (06:30)
[2021-10-24] MEDS ORDERED: PANTOPRAZOLE 40 MG (PROTONIX) TAB PO SCH (07:00)
[2021-10-24 08:27] VITALS: BP 148/67
[2021-10-24] MEDS ORDERED: amLODIPine 5 MG (NORVASC) TAB PO SCH ×2 (09:00)
[2021-10-24] MEDS ORDERED: AMIODARONE 200 MG (CORDARONE) TAB PO SCH (09:00)
[2021-10-24] MEDS ORDERED: FINASTERIDE (PROSCAR) 5 MG TAB PO SCH ×3 (09:00→21:00)
[2021-10-24] MEDS ORDERED: ISOSORBIDE MONONITRATE 60 MG (IMDUR) TAB PO SCH (09:00)
[2021-10-24] MEDS ORDERED: PRASUGREL 10 MG (EFFIENT) TABLET PO SCH ×2 (09:00)
[2021-10-24] MEDS ORDERED: LOSARTAN 100 MG (COZAAR) TABLET PO SCH ×2 (09:00)
--- NOTE | 2021-10-24 10:21 | Physical Therapy Evaluation ---
PT Evaluation-General Medical Diagnosis Admission Date Oct 23, 2021 at 18:42 Medical Diagnosis: fall/right humeral fracture/left patellar fracture Onset Date: Oct 23, 2021 Therapy Diagnosis Therapy Diagnosis: debility Height/Weight Height (Feet): 6 Height (Inches): 2.00 Weight (Pounds): 190 Weight (Ounces): 0.0 Precautions Precautions/Isolations: Fall Prevention Weight Bear Status Right Lower Extremity: Right Full Weight Bearing Left Lower Extremity: Left Weight Bearing/Tolerated NWB right UE in sling Referral Physician: Jeanie Reason for Referral: Evaluation/Treatment Medical History Pertinent Medical History: Atrial Fib, CABG, CAD, HTN Current History ER secondary patient tripped over a hose carrying in groceries. Reviewed History: Yes Social History Home: Single Level Current Living Status: Spouse Entry Into Home: Stairs With Railing PT Steps Into Home: 3 Prior Prior Level of Function SCALE: Activities may be completed with or without assistive devices. 4-Lynsseebmw-jqssivn completes the activity by him/herself with no assistance from a helper. 5-Set-up or Clean-up Assistance-helper sets up or cleans up; patient completes activity. Bristow assists only prior to or following the activity. 4-Supervision or Touching Assistance-helper provides verbal cues and/or touching/steadying and/or contact guard assistance as patient completes activity. Assistance may be provided throughout the activity or intermittently. 3-Partial/Moderate Assistance-helper does LESS THAN HALF the effort. Bristow lifts, holds or supports trunk or limbs, but provides less than half the effort. 2-Substantial/Maximal Assistance-helper does MORE THAN HALF the effort. Bristow lifts or holds trunk or limbs and provides more than half the effort. 9-Trwvcxfvt-pnbpwp does ALL the effort. Patient does none of the effort to complete the activity. Or, the assistance of 2 or more helpers is required for the patient to complete the activity. If activity was not attempted, code reason: 7-Patient Refused. 9-Not Applicable-not attempted and the patient did not perform the activity before the current illness, exacerbation or injury. 10-Not Attempted due to Environmental Limitations-(lack of equipment, weather restraints, etc.). 88-Not Attempted due to Medical Conditions or Safety Concerns. Bed Mobility: 6 Transfers (B,C,W/C): 6 Gait: 6 Stairs: 6 Indoor Mobility (Ambulation): Independent Stairs: Independent Prior Devices Use: None PT Evaluation-Current Subjective Patient agrees to PT. Pain Numeric Pain Scale: 7 Location: Right Location Body Site: Shoulder Pain Description: Acute Pt/Family Goals Home JOSELINE Objective Patient Orientation: Normal For Age Attachments: Oxygen, IV ROM/Strength ROM Lower Extremities right LE WFL/left LE immobilized Strength Lower Extremities right LE 4-/5 grossly/left LE 3/5 grossly (SLR, DF/PF Integumentary/Posture Bowel Incontinence: No Bladder Incontinence: No Posture kyphotic Neuromuscular (Tone, Coordination, Reflexes) grossly intact Sensory Vision: Wears Glasses Hearing: Functional Transfers Lying to Sitting/Side of Bed(Q: 3 Sit to Stand (QC): 3 Chair/Iyy-vq-Isisv Xfer(QC): 3 Gait Does the Patient Walk?: Yes Mode of Locomotion: Walk Anticipated Mode of Locomotion: Walk Walk 10 feet (QC): 3 Walk 50 ft with 2 Turns(QC): 3 Walk 150 ft (QC): 88 Distance: 125' Gait Assistive Device: Walker Vinh Comments/Gait Description vinh walker has to be utilized on left side due to right UE NWB Balance Sitting Static: Normal Sitting Dynamic: Normal Standing Static: Fair Standing Dynamic: Fair Treatment Gait training with vinh walker same side as patellar fracture (left) Assessment/Needs 86 y.o. male, will benefit from skilled PT to address functional strength and mobility to improve current LOF to safely return to home with spouse at maximum LOF. Rehab Potential: Fair PT Residential Goals Residential Goals PT Geropsychologist Goals Time Frame: Nov 02, 2021 Roll Left & Right (QC): 6 Sit to Lying (QC): 6 Lying-Sitting on Side/Bed(QC): 6 Sit to Stand (QC): 6 Chair/Nsf-bn-Onrxb Xfer(QC): 6 Toilet Transfer (QC): 6 Walk 10 feet (QC): 6 Walk 50ft with 2 Turns (QC): 6 Walk 150 ft (QC): 6 PT Plan Problem List Problem List: Activity Tolerance, Functional Strength, Safety, Balance, Gait, Transfer, Bed Mobility Treatment/Plan Treatment Plan: Continue Plan of Care Treatment Plan: Bed Mobility, Education, Functional Activity David, Functional Strength, Gait, Safety, Therapeutic Exercise, Transfers Treatment Duration: Nov 02, 2021 Frequency: 11 times per week Estimated Hrs Per Day: .5 hour per day Patient and/or Family Agrees t: Yes Time/GCodes Time In: 900 Time Out: 932 Total Billed Treatment Time: 32 Total Billed Treatment 1 visit EVModC 14 min GT 18 min BAM HERRERA PT Oct 24, 2021 10:21
[2021-10-24] MEDS: buPROPion SR 150 MG (WELLBUTRIN SR) TAB PO SCH (10:29)
[2021-10-24] MEDS ORDERED: CYANOCOBALAMIN INJ 1000 MCG/ML IM SCH (11:00)
[2021-10-24 12:04] LABS: HEMOGLOBIN 10.4 g/dL (13.3-17.7); MONOCYTES % (AUTO) 12 % (0-12)
[2021-10-24 12:06] LABS: BASOPHILS % (AUTO) 0 % (0-10); EOSINOPHILS # (AUTO) 0.3 10^3/uL (0.0-0.3); EOSINOPHILS % (AUTO) 2 % (0-10); HEMATOCRIT 34 % (40-54); LYMPHOCYTES # (AUTO) 0.5 10^3/uL (1.0-4.0); LYMPHOCYTES % (AUTO) 4 % (12-44); MEAN CORPUSCULAR HEMOGLOBIN 28 pg (25-34); MEAN CORPUSCULAR HGB CONC 31 g/dL (32-36); MEAN CORPUSCULAR VOLUME 90 fL (80-99); MEAN PLATELET VOLUME 12.6 fL (9.0-12.2); MONOCYTES # (AUTO) 1.4 10^3/uL (0.0-1.0); NEUTROPHILS # (AUTO) 9.3 10^3/uL (1.8-7.8); NEUTROPHILS % (AUTO) 80 % (42-75); WHITE BLOOD COUNT 11.5 10^3/uL (4.3-11.0)
[2021-10-24 12:09] LABS: POTASSIUM 4.5 MMOL/L (3.6-5.0)
[2021-10-24 12:10] LABS: CALCIUM 8.9 MG/DL (8.5-10.1)
[2021-10-24 12:11] LABS: TOTAL PROTEIN 6.2 GM/DL (6.4-8.2)
[2021-10-24 12:13] LABS: BILIRUBIN,TOTAL 0.9 MG/DL (0.1-1.0)
[2021-10-24 12:15] LABS: CREATININE SERUM 0.98 MG/DL (0.60-1.30)
--- NOTE | 2021-10-24 12:38 | Short Stay Summary ---
JEREMY SUBRAMANIAN 10/24/21 1238: History of Present Illness History of Present Illness Reason for visit/HPI CC: Fall HPI: The patient is an 86 YO male with a history of triple bypass surgery, on aspirin therapy, who presented to the ED yesterday DT a fall. He reports that he tripped over a hose, which resulted in him falling on his L knee and R shoulder. He did not hit his head or lose consciousness. The patient reports a history of a previous fall a few years ago, which resulted in a broken pelvis. Today he was not in acute distress, but did mention feeling nausea when standing up. He denied vomiting. 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 His PCP is Dr. Lockwood. Date of Admission Oct 23, 2021 at 18:42 Date of Discharge Time Seen by Provider: 09:45 Attending Physician Tamela King DO Admitting Physician Connor Lockwood DO Consult Allergies and Home Medications Allergies Coded Allergies: Sulfa (Sulfonamide Antibiotics) (Unverified Allergy, Unknown, 03/20/15) quinine (Unverified Allergy, Unknown, 01/16/15) Patient Home Medication List Amiodarone HCl (Amiodarone HCl) 200 Mg Tablet, 200 MG PO MO,,,FR,SA, (R eported) Entered as Reported by: ABEL HUGHES on 12/03/15 0936 Last Action: Continued Amlodipine Besylate (Amlodipine Besylate) 5 Mg Tablet, 5 MG PO DAILY, (Reported) Entered as Reported by: GUNNER RUTLEDGE on 10/24/21 0550 Last Action: Continued Aspirin (Aspirin EC) 81 Mg Tablet.dr, 81 MG PO JACKSON,,TH,SA, (Reported) Entered as Reported by: TARA WILLARD on 10/24/21 1355 Aspirin (Aspirin EC) 81 Mg Tablet.dr, 162 MG PO RON,MARIO,FR, (Reported) Entered as Reported by: TARA WILLARD on 10/24/21 1355 Bupropion HCl (Bupropion Xl) 300 Mg Tab.er.24h, 300 MG PO DAILY, (Reported) Entered as Reported by: GUNNER RUTLEDGE on 10/24/21 0544 Last Action: Converted Cyanocobalamin (Cyanocobalamin Injection) 1,000 Mcg/Ml Inj, 1,000 MCG IJ MONTHLY, (Reported) Entered as Reported by: ONELIA JONES on 07/01/161244 Last Action: Continued Ferrous Sulfate (Ferrous Sulfate) 220 Mg/5 Ml Elixir, 15 ML PO DAILY, (Reported) Entered as Reported by: TARA WILLARD on 10/24/21 1438 Finasteride (Finasteride) 5 Mg Tablet, 5 MG PO HS, (Reported) Entered as Reported by: ONELIA JONES on 07/01/161244 Last Action: Continued Isosorbide Mononitrate (Isosorbide Mononitrate ER) 60 Mg Tab, 60 MG PO BID, (Reported) Entered as Reported by: GUNNER RUTLEDGE on 10/24/21 0549 Last Action: Continued Levothyroxine Sodium (Levothyroxine Sodium) 175 Mcg Tablet, 175 MCG PO DAILY, (Reported) Entered as Reported by: GUNNER RUTLEDGE on 10/24/21 0542 Last Action: Converted Losartan Potassium (Losartan Potassium) 100 Mg Tablet, 100 MG PO DAILY, (Reported) Entered as Reported by: GUNNER RUTLEDGE on 10/24/2151 Last Action: Continued Omeprazole (Omeprazole) 40 Mg Capsule.dr, 40 MG PO HS, (Reported) Entered as Reported by: GUNNER RUTLEDGE on 10/24/2147 Last Action: Converted Prasugrel HCl (Prasugrel HCl) 10 Mg Tablet, 10 MG PO DAILY, (Reported) Entered as Reported by: GUNNER RUTLEDGE on 10/24/21 0544 Last Action: Continued Vit A/C/E/Zinc/Co (Preservision Areds Softgel) 1 Cap Capsule, 1 CAP PO BID, (Reported) Entered as Reported by: GUNNER RUTLEDGE on 10/24/21 0554 Last Action: Continued Discontinued Medications Amlodipine Besylate (Amlodipine Besylate) 10 Mg Tablet, 10 MG PO DAILY, (Reported) Discontinued Reason: No Longer Taking Entered as Reported by: ONELIA JONES on 07/01/161244 Last Action: Discontinued Apixaban (Eliquis) 2.5 Mg Tablet, 2.5 MG PO BID, (Reported) Discontinued Reason: No Longer Taking Entered as Reported by: ONELIA JONES on 07/01/16 1245 Atorvastatin Calcium (Lipitor Tablet) 10 Mg Tablet, 10 MG PO HS, (Reported) Discontinued Reason: No Longer Taking Entered as Reported by: DELIA AHUJA on 01/16/15747 Last Action: Continued Ferrous Sulfate (Ferrous Sulfate) 325 Mg Tablet, 325 MG PO HS, (Reported) Discontinued Reason: Prescription changed Entered as Reported by: ABEL HUGHES on 12/03/15935 Last Action: Continued Isosorbide Mononitrate (Isosorbide Mononitrate Er) 60 Mg Tab.er.24h, 60 MG PO BID, (Reported) Discontinued Reason: Duplicate Order Entered as Reported by: DELIA AHUJA on 01/16/15747 Last Action: Discontinued Levothyroxine Sodium (Levothyroxine 125 Mcg Tab) 125 Mcg Tablet, 150 MCG PO DAILY, (Reported) Discontinued Reason: No Longer Taking Entered as Reported by: DELIA AHUJA on 01/16/15747 Last Action: Discontinued Lorazepam (Lorazepam) 0.5 Mg Tablet, 0.5 MG PO BID PRN for ANXIETY, (Reported) Discontinued Reason: No Longer Taking Entered as Reported by: ABEL HUGHES on 12/03/15935 Last Action: Discontinued Prasugrel HCl (Effient) 10 Mg Tablet, 10 MG PO DAILY, (Reported) Discontinued Reason: Duplicate Order Entered as Reported by: ONELIA JONES on 07/01/16 1245 Last Action: Discontinued Past Lkeocdr-Gtucuw-Ecbodm Hx Patient Social History Smoking Status: Never a Smoker Former Smoker, Quit: December 06, 1965 Recent Hopitalizations: No Have you traveled recently?: No Alcohol Use?: No Pt feels they are or have been: No Immunizations Up To Date Date of Pneumonia Vaccine: Jan 16, 2014 Date of Influenza Vaccine: May 02, 2016 Seasonal Allergies Seasonal Allergies: No Surgeries CABG, Coronary Stent, Orthopedic Cardiovascular Atrial Fibrillation, Coronary Artery Disease, High Cholesterol, Hypertension Musculoskeletal Arthritis, Back Injury, Chronic Back Pain Endocrine Endocrine Disorders: Hypothyroidsim Review of Systems Constitutional: No chills, No diaphoresis, No fever EENTM: No blurred vision, No double vision Respiratory: No cough, No short of breath Cardiovascular: No chest pain, No palpitations Gastrointestinal: No constipation, No diarrhea; nausea; No vomiting Musculoskeletal: joint pain (L knee and R shoulder) Skin: No change in color, No lesions Psychiatric/Neurological: Denies Anxiety, Denies Depressed, Denies Emotional Problems Physical Exam Vital Signs Vital Signs - First Documented 10/23/21 16:33 Temp 36.8 Pulse 71 Resp 16 B/P (MAP) 174/78 (110) Pulse Ox 94 Capillary Refill : Less Than 3 Seconds Height, Weight, BMI Height: 6'2.00" Weight: 190lbs. 0.0oz. 86.565351ro; 22.04 BMI Method:Stated General Appearance: No Apparent Distress Eyes: Bilateral Eye Normal Inspection, Bilateral Eye PERRL, Bilateral Eye EOMI HEENT: PERRL/EOMI, Moist Mucous Membranes Neck: Full Range of Motion, Normal Inspection Respiratory: Chest Non Tender, Lungs Clear, Normal Breath Sounds, No Accessory Muscle Use, No Respiratory Distress Cardiovascular: Regular Rate, Rhythm, No Edema, No Gallop, No JVD, No Murmur, Normal Peripheral Pulses Gastrointestinal: Normal Bowel Sounds, No Organomegaly, No Pulsatile Mass, Non Tender, Soft Extremity: Normal Inspection, No Calf Tenderness, No Pedal Edema, Other (PT with fracture of L patella (non displaced) , and R humeral head) Neurologic/Psychiatric: Alert, Oriented x3, No Motor/Sensory Deficits, Normal Mood/Affect Skin: Normal Color, Warm/Dry Short Stay Diagnosis Discharge Diagnosis-Short Stay Admission Diagnosis: Fall nondisplaced L patellar fracture R humeral head fracture Conclusion Labs Laboratory Tests 10/24/21 11:35: Sodium Level 138, Potassium Level 4.5, Chloride Level 100, Carbon Dioxide Level 27, Anion Gap 11, Blood Urea Nitrogen 14, Creatinine 0.98, Estimat Glomerular Filtration Rate 76, BUN/Creatinine Ratio 14, Glucose Level 152H, Calcium Level 8.9, Corrected Calcium 8.9, Total Bilirubin 0.9, Aspartate Amino Transf (AST/SGOT) 20, Alanine Aminotransferase (ALT/SGPT) 23, Alkaline Phosphatase 86, Total Protein 6.2L, Albumin 4.0 Conclusion/Plan Assessment: Fall nondisplaced L patellar fracture R humeral head fracture Decreased strength Fragility Hx of triple bypass surgery Plan: Fall nondisplaced L patellar fracture R humeral head fracture Decreased strength Fragility PT will be transferred to inpatient rehab. Appreciate Orthopaedics who were consulted due to his fractures. Continue on home medications. Hx of triple bypass surgery Appreciate cardiology, who were consulted due to his previous cardiac Hx and blood thinning medication. TAMELA KING DO 10/25/21 0643: History of Present Illness History of Present Illness Reason for visit/HPI Chief complaint: Fall with fractures History of present illness: This is an 86-year-old white male clinic patient of Dr. Lockwood and Dr. Mohit Mar who presented to the ER after a fall at home suffering a proximal humerus fracture and right patellar fracture. I have consulted Dr. Hopkins. Date of Admission 10/23/2021 Date of Discharge 10/24/2021 Time Seen by Provider: 11:00 Allergies and Home Medications Allergies Coded Allergies: Sulfa (Sulfonamide Antibiotics) (Unverified Allergy, Unknown, 03/20/15) quinine (Unverified Allergy, Unknown, 01/16/15) Patient Home Medication List Home Medication List Reviewed: Yes Amiodarone HCl (Amiodarone HCl) 200 Mg Tablet, 200 MG PO MO,,,FR,SA, (Reported) Entered as Reported by: ABEL HUGHES on 12/03/15 0936 Last Action: Continued Amlodipine Besylate (Amlodipine Besylate) 5 Mg Tablet, 5 MG PO DAILY, (Reported) Entered as Reported by: GUNNER RUTLEDGE on 10/24/21 0550 Last Action: Continued Aspirin (Aspirin EC) 81 Mg Tablet.dr, 81 MG PO JACKSON,,TH,SA, (Reported) Entered as Reported by: TARA WILLARD on 10/24/21 1355 Aspirin (Aspirin EC) 81 Mg Tablet.dr, 162 MG PO RON,,FR, (Reported) Entered as Reported by: TARA WILLARD on 10/24/21 1355 Bupropion HCl (Bupropion Xl) 300 Mg Tab.er.24h, 300 MG PO DAILY, (Reported) Entered as Reported by: GUNNER RUTLEDGE on 10/24/21 0544 Last Action: Converted Cyanocobalamin (Cyanocobalamin Injection) 1,000 Mcg/Ml Inj, 1,000 MCG IJ MONTHLY, (Reported) Entered as Reported by: ONELIA JONES on 07/01/16 1245 Last Action: Continued Ferrous Sulfate (Ferrous Sulfate) 220 Mg/5 Ml Elixir, 15 ML PO DAILY, (Reported) Entered as Reported by: TARA WILLARD on 10/24/21 1438 Finasteride (Finasteride) 5 Mg Tablet, 5 MG PO HS, (Reported) Entered as Reported by: ONELIA JONES on 07/01/161244 Last Action: Continued Isosorbide Mononitrate (Isosorbide Mononitrate ER) 60 Mg Tab, 60 MG PO BID, (Reported) Entered as Reported by: GUNNER RUTLEDGE on 10/24/21 0549 Last Action: Continued Levothyroxine Sodium (Levothyroxine Sodium) 175 Mcg Tablet, 175 MCG PO DAILY, (Reported) Entered as Reported by: GUNNER RUTLEDGE on 10/24/21 0542 Last Action: Converted Losartan Potassium (Losartan Potassium) 100 Mg Tablet, 100 MG PO DAILY, (Reported) Entered as Reported by: GUNNER RUTLEDGE on 10/24/21 0551 Last Action: Continued Omeprazole (Omeprazole) 40 Mg Capsule.dr, 40 MG PO HS, (Reported) Entered as Reported by: GUNNER RUTLEDGE on 10/24/21 0547 Last Action: Converted Prasugrel HCl (Prasugrel HCl) 10 Mg Tablet, 10 MG PO DAILY, (Reported) Entered as Reported by: GUNNER RUTLEDGE on 10/24/21 0544 Last Action: Continued Vit A/C/E/Zinc/Co (Preservision Areds Softgel) 1 Cap Capsule, 1 CAP PO BID, (Reported) Entered as Reported by: GUNNER RUTLEDGE on 10/24/21 0554 Last Action: Continued Discontinued Medications Amlodipine Besylate (Amlodipine Besylate) 10 Mg Tablet, 10 MG PO DAILY, (Reported) Discontinued Reason: No Longer Taking Entered as Reported by: ONELIA JONES on 07/01/16 1245 Last Action: Discontinued Apixaban (Eliquis) 2.5 Mg Tablet, 2.5 MG PO BID, (Reported) Discontinued Reason: No Longer Taking Entered as Reported by: ONELIA JONES on 07/01/165 Atorvastatin Calcium (Lipitor Tablet) 10 Mg Tablet, 10 MG PO HS, (Reported) Discontinued Reason: No Longer Taking Entered as Reported by: DELIA AHUJA on 01/16/15 0738 Last Action: Continued Ferrous Sulfate (Ferrous Sulfate) 325 Mg Tablet, 325 MG PO HS, (Reported) Discontinued Reason: Prescription changed Entered as Reported by: ABEL HUGHES on 12/03/15935 Last Action: Continued Isosorbide Mononitrate (Isosorbide Mononitrate Er) 60 Mg Tab.er.24h, 60 MG PO BID, (Reported) Discontinued Reason: Duplicate Order Entered as Reported by: DELIA AHUJA on 01/16/15747 Last Action: Discontinued Levothyroxine Sodium (Levothyroxine 125 Mcg Tab) 125 Mcg Tablet, 150 MCG PO DAILY, (Reported) Discontinued Reason: No Longer Taking Entered as Reported by: DELIA AHUJA on 01/16/15747 Last Action: Discontinued Lorazepam (Lorazepam) 0.5 Mg Tablet, 0.5 MG PO BID PRN for ANXIETY, (Reported) Discontinued Reason: No Longer Taking Entered as Reported by: ABEL HUGHES on 12/03/15935 Last Action: Discontinued Prasugrel HCl (Effient) 10 Mg Tablet, 10 MG PO DAILY, (Reported) Discontinued Reason: Duplicate Order Entered as Reported by: ONELIA JONES on 07/01/16 1245 Last Action: Discontinued Past Ibntfco-Pnkdar-Inybnu Hx Patient Social History Marrital Status: single Employed/Student: retired Smoking Status: Former Smoker Surgeries Coronary Stent Cardiovascular High Cholesterol, Hypertension Review of Systems Constitutional: see HPI, malaise, weakness EENTM: no symptoms reported Respiratory: dyspnea on exertion, short of breath Cardiovascular: no symptoms reported Gastrointestinal: no symptoms reported Genitourinary: no symptoms reported Musculoskeletal: back pain, joint pain Skin: no symptoms reported Psychiatric/Neurological: No Symptoms Reported All Other Systems Reviewed Negative Unless Noted: Yes Physical Exam General Appearance: No Apparent Distress, WD/WN, Chronically ill Eyes: Bilateral Eye Normal Inspection, Bilateral Eye PERRL, Bilateral Eye EOMI HEENT: PERRL/EOMI, Normal ENT Inspection, Pharynx Normal Neck: Full Range of Motion, Normal Inspection, Non Tender, Supple, Carotid Bruit Respiratory: Chest Non Tender, Lungs Clear, Normal Breath Sounds, No Accessory Muscle Use, No Respiratory Distress Cardiovascular: Regular Rate, Rhythm, No Edema, No Gallop, No JVD, No Murmur, Normal Peripheral Pulses Gastrointestinal: Normal Bowel Sounds, No Organomegaly, No Pulsatile Mass, Non Tender, Soft Back: Normal Inspection, No CVA Tenderness, No Vertebral Tenderness Extremity: Normal Capillary Refill, Normal Inspection, Normal Range of Motion (Except right arm and right leg fracture), Non Tender, No Calf Tenderness, No Pedal Edema Neurologic/Psychiatric: Alert, Oriented x3, No Motor/Sensory Deficits, Normal Mood/Affect Skin: Normal Color, Warm/Dry Lymphatic: No Adenopathy Short Stay Diagnosis Discharge Diagnosis-Short Stay Admission Diagnosis: Fall Right humerus fracture Right patellar fracture Final Discharge Diagnosis: Fall Right humerus fracture Right patellar fracture Conclusion Conclusion/Plan Inpatient rehab Supervisory-Addendum Brief Verification & Attestation Participated in pt care: history, MDM, physical Personally performed: exam, history, MDM, supervision of care Care discussed with: Medical Student Procedures: n/a Results interpretation: Verified all documentation Verification and Attestation of Medical Student E/M Service A medical student performed and documented this service in my presence. I reviewed and verified all information documented by the medical student and made modifications to such information, when appropriate. I personally performed the physical exam and medical decision making. Tamela King, Oct 25, 2021,06:42 JEREMY SUBRAMANIAN Oct 24, 2021 12:38 TAMELA KING DO Oct 25, 2021 06:43
[2021-10-24 12:39] LABS: PLATELET COUNT 101 10^3/uL (130-400); SMEAR SCAN COMMENT YES
--- NOTE | 2021-10-24 12:44 | Consultation - Ortho ---
Consult - Ortho Subjective Date of Exam 10/24/21 Chief Complaint Right shoulder and left knee injury HPI/Events since last exam fall last night, tripped over hose, seen in ER and diagnosed with right proximal humerus fracture and left patella fracture, I was asked to evaluate secondary to the fractures Medical, Surgical History not obtained Social History not obtained Family History not obtained Review of Systems not obtained Allergies: Coded Allergies: Sulfa (Sulfonamide Antibiotics) (Unverified Allergy, Unknown, 03/20/15) quinine (Unverified Allergy, Unknown, 01/16/15) Home Meds Reported Medications Vit A/C/E/Zinc/Co (Preservision Areds Softgel) 1 Cap Capsule, 1 CAP PO BID 10/24/21 Losartan Potassium (Losartan Potassium) 100 Mg Tablet, 100 MG PO DAILY 10/24/21 Amlodipine Besylate (Amlodipine Besylate) 5 Mg Tablet, 5 MG PO DAILY 10/24/21 Isosorbide Mononitrate (Isosorbide Mononitrate ER) 60 Mg Tab, 60 MG PO DAILY 10/24/21 Omeprazole (Omeprazole) 40 Mg Capsule.dr, 40 MG PO DAILY 10/24/21 Prasugrel HCl (Prasugrel HCl) 10 Mg Tablet, 10 MG PO DAILY 10/24/21 Bupropion HCl (Bupropion Xl) 300 Mg Tab.er.24h, 300 MG PO DAILY 10/24/21 Levothyroxine Sodium (Levothyroxine Sodium) 175 Mcg Tablet, 175 MCG PO DAILY 10/24/21 Cyanocobalamin (Cyanocobalamin Injection) 1,000 Mcg/Ml Inj, 1000 MCG IJ every 2 weeks, VIAL 07/01/16 Aspirin (Aspir 81) 81 Mg Tablet.dr, 81 MG PO DAILY, TAB 07/01/16 Finasteride (Finasteride) 5 Mg Tablet, 5 MG PO HS, TAB 07/01/16 Apixaban (Eliquis) 2.5 Mg Tablet, 2.5 MG PO BID, TAB 07/01/16 Ferrous Sulfate (Ferrous Sulfate) 325 Mg Tablet, 325 MG PO HS, TAB 12/03/15 Amiodarone HCl (Amiodarone HCl) 200 Mg Tablet, 200 MG PO DAILY, TAB takes one 200 mg pill on Thursday, Thursday, Thursday, Thursday and Thursday (does not take this medication on Thursday and ) 12/03/15 Atorvastatin Calcium (LIPITOR TABLET) 10 Mg Tablet, 10 MG PO HS, TAB 01/16/15 Discontinued Reported Medications Prasugrel HCl (Effient) 10 Mg Tablet, 10 MG PO DAILY, TAB 07/01/16 Amlodipine Besylate (Amlodipine Besylate) 10 Mg Tablet, 10 MG PO DAILY, TAB 07/01/16 Lorazepam (Lorazepam) 0.5 Mg Tablet, 0.5 MG PO BID PRN for ANXIETY, TAB 12/03/15 Isosorbide Mononitrate (Isosorbide Mononitrate Er) 60 Mg Tab.er.24h, 60 MG PO BID, TAB 01/16/15 Levothyroxine Sodium (Levothyroxine 125 Mcg Tab) 125 Mcg Tablet, 150 MCG PO DAILY, TAB 01/16/15 Objective Exam Right arm: sling in place, sensation intact to light touch, pulses 2+ Left Leg: knee immobilizer in place, +DF of ankle, palpable distal pulses Vital Signs Vital Signs Date Time Temp Pulse Resp B/P (MAP) Pulse Ox O2 Delivery O2 Flow Rate FiO2 10/24/21 10:48 97 Nasal Cannula 3.00 10/24/21 08:27 37.3 73 18 148/67 (94) 91 Nasal Cannula 2.00 2.00 10/24/21 08:00 Nasal Cannula 2.00 10/24/21 03:30 36.8 75 18 134/67 (89) 96 Nasal Cannula 2.00 2.00 10/23/21 23:29 36.5 73 18 151/69 (96) 96 Nasal Cannula 2.00 2.00 10/23/21 20:30 Nasal Cannula 2.00 10/23/21 20:30 36.4 75 18 160/72 (101) 95 Nasal Cannula 2.00 2.00 10/23/21 20:03 72 18 139/63 95 10/23/21 16:33 36.8 71 16 174/78 (110) 94 I & O 10/24/21 07:00 Intake Total 500 ml Output Total 925 ml Balance -425 ml Lab Results Laboratory Tests 10/24/21 11:35: Sodium Level 138, Potassium Level 4.5, Chloride Level 100, Carbon Dioxide Level 27, Anion Gap 11, Blood Urea Nitrogen 14, Creatinine 0.98, Estimat Glomerular Filtration Rate 76, BUN/Creatinine Ratio 14, Glucose Level 152H, Calcium Level 8.9, Corrected Calcium 8.9, Total Bilirubin 0.9, Aspartate Amino Transf (AST/SGOT) 20, Alanine Aminotransferase (ALT/SGPT) 23, Alkaline Phosphatase 86, Total Protein 6.2L, Albumin 4.0 Imaging Views of the right shoulder dated 10/23/21 were reviewed from PACS and demonstrated a nondisplaced proximal humerus fracture involving the greater tuberosity and the surgical neck Views of the right knee dated 10/23/21 were reviewed from PACS and demonstrated a nondisplaced patella fracture involving the superior pole Assessment and Plan Assessment Nondisplaced 3-Part Right Proximal Humerus Fracture Nondisplaced Left Patella Fracture Problem List Nondisplaced 3-Part Right Proximal Humerus Fracture Nondisplaced Left Patella Fracture Plan NWB R Arm and continue sling Knee immobilizer to left knee and may be WBAT in immobilizer PT/OT Discussed timeline for healing and progression of activities. Recommend repeat x-rays of both in 2 weeks. Final Diagonsis Nondisplaced 3-Part Right Proximal Humerus Fracture Nondisplaced Left Patella Fracture Level of the visit: Level 3 CHAPARRO ELLIOTT MD Oct 24, 2021 12:43
[2021-10-24 12:58] VITALS: BP 133/62
[2021-10-24] MEDS ORDERED: ASPI-1238 PO ×2 (13:55)
[2021-10-24] MEDS ORDERED: FESO45ML PO (14:38)
[2021-10-24] MEDS ORDERED: FERROUS SULF 325 MG (IRON) TAB PO SCH (21:00)
[2021-10-24] MEDS ORDERED: PRESERVISION AREDS SOFTGEL (BAUSH & LOMB) PO SCH (21:00)
[2021-10-24] MEDS ORDERED: AtorvaSTATin TABLET 10 MG TABLET PO SCH (21:00)
[2021-10-25] MEDS ORDERED: amLODIPine 5 MG (NORVASC) TAB PO SCH (09:00)
[2021-10-25] MEDS ORDERED: ISOSORBIDE MONONITRATE 60 MG (IMDUR) TAB PO SCH (09:00)
[2021-10-25] MEDS ORDERED: NON-FORMULARY MEDICATION 1 EA EA (Omeprazole 40 MG) PO SCH (09:00)
[2021-10-25] MEDS ORDERED: NON-FORMULARY MEDICATION 1 EA EA (Bupropion HCl (Bupropion Xl) 300 MG) PO SCH (09:00)
[2021-10-25] MEDS ORDERED: NON-FORMULARY MEDICATION 1 EA EA (Levothyroxine Sodium 175 MCG) PO SCH (09:00)
[2021-10-25] MEDS ORDERED: ASPIRIN E.C. 81 MG (ECOTRIN) TAB PO SCH (09:00)
[2021-10-25] MEDS ORDERED: PRASUGREL 10 MG (EFFIENT) TABLET PO SCH (09:00)
[2021-10-25] MEDS ORDERED: AMIODARONE 200 MG (CORDARONE) TAB PO SCH ×2 (09:00)
[2021-10-25] MEDS ORDERED: LOSARTAN 100 MG (COZAAR) TABLET PO SCH (09:00)
== END 2021-10-24 13:20 ==
LOC: EDUNIT# 16:22 → ER 16:23 → 4TH 18:42
PROVIDERS: ADMIT Internal Medicine; ATTEND Internal Medicine
DX: S82.002A Unspecified fracture of left patella, initial encounter for closed fracture (principal); S42.294A Other nondisplaced fracture of upper end of right humerus, initial encounter for closed fracture; I25.10 Atherosclerotic heart disease of native coronary artery without angina pectoris; M62.81 Muscle weakness (generalized); Z79.82 Long term (current) use of aspirin; Z87.891 Personal history of nicotine dependence; Z95.1 Presence of aortocoronary bypass graft; Z95.5 Presence of coronary angioplasty implant and graft; W01.0XXA Fall on same level from slipping, tripping and stumbling without subsequent striking against object, initial encounter
CPT/HCPCS: 73030; 73562; 80053; 84443; 85025; 94760; 97116; 97162; 99283; A4565; G0378; L1830; 36415

== ENCOUNTER 2021-10-24 11:12 | Inpatient (IN) | payer MEDICARE ==
[~2021-10-24] VITALS: Ht 187 cm; Wt 77.1 kg
[~2021-10-24 11:12] MED LIST changes: +AMLO-250 PO; +BUPR300T98 PO; +ISOS60TA63 PO; +LEVO175T5 PO; +LOSA100T57 PO; +OMEP40CA6 PO; +PRAS10TA10 PO; +VIT1CAPS5 PO
[2021-10-24] MEDS ORDERED: ACETAMINOPHEN 325 MG TABLET PO PRN (11:30)
[2021-10-24] MEDS ORDERED: DOCUSATE SODIUM 100 MG (COLACE) CAP PO PRN (11:30)
[2021-10-24] MEDS ORDERED: guaiFENesin/CODEINE (ROBITUSSIN AC) 10ML UDC PO PRN (11:30)
[2021-10-24] MEDS ORDERED: ONDANSETRON 4 MG/2 ML (SDV) Z0FRAN IV PRN (11:30)
[2021-10-24] MEDS ORDERED: LACTULOSE SYRUP 10GM/15ML (ENULOSE) 30ML UDC PO PRN (11:30)
[2021-10-24] MEDS ORDERED: CALCIUM CARBONATE 500 MG (TUMS) TAB.CHEW PO PRN (11:30)
[2021-10-24] MEDS ORDERED: FLEET ENEMA ADULT 1 EA BTL PR PRN (11:30)
[2021-10-24] MEDS ORDERED: LOPERAMIDE 2 MG (IMODIUM) TABLET PO PRN (11:30)
[2021-10-24] MEDS ORDERED: ONDANSETRON 4 MG (ZOFRAN) ORAL DISSOLVE TAB PO PRN (11:30)
[2021-10-24] MEDS ORDERED: ALPRAZolam 0.25 MG (XANAX) TAB PO PRN (11:30)
[2021-10-24] MEDS ORDERED: diphenhydrAMINE 25 MG TAB (BENADRYL) PO PRN (11:30)
[2021-10-24] MEDS ORDERED: MELATONIN 3 MG TABLET PO PRN (11:30)
[2021-10-24] MEDS ORDERED: BISACODYL 10 MG SUPP (DULCOLAX) PR PRN (11:30)
[2021-10-24 13:00] VITALS: BP 139/63
--- NOTE | 2021-10-24 13:43 | Physical Therapy Evaluation ---
PT Evaluation-General Medical Diagnosis Admission Date Medical Diagnosis: fall/right humeral fracture/left patellar fracture Onset Date: Oct 23, 2021 Therapy Diagnosis Therapy Diagnosis: impaired mobility, strength, endurance Height/Weight Height (Feet): 6 Height (Inches): 2.00 Weight (Pounds): 190 Weight (Ounces): 0.0 Weight Bear Status Right Lower Extremity: Right Full Weight Bearing Left Lower Extremity: Left Weight Bearing/Tolerated RUE in sling and NWB, LLE in knee immobilizer Referral Physician: Tamela Angeles DO Reason for Referral: Evaluation/Treatment Medical History Pertinent Medical History: Atrial Fib, CABG, CAD, HTN Current History ER secondary patient tripped over a hose carrying in groceries. Reviewed History: Yes Social History Home: Single Level Current Living Status: Spouse Entry Into Home: Stairs With Railing PT Steps Into Home: 3 Prior Prior Level of Function SCALE: Activities may be completed with or without assistive devices. 7-Puuiwlympn-rvoimnd completes the activity by him/herself with no assistance from a helper. 5-Set-up or Clean-up Assistance-helper sets up or cleans up; patient completes activity. Gary assists only prior to or following the activity. 4-Supervision or Touching Assistance-helper provides verbal cues and/or touching/steadying and/or contact guard assistance as patient completes activity. Assistance may be provided throughout the activity or intermittently. 3-Partial/Moderate Assistance-helper does LESS THAN HALF the effort. Gary lifts, holds or supports trunk or limbs, but provides less than half the effort. 2-Substantial/Maximal Assistance-helper does MORE THAN HALF the effort. Gary lifts or holds trunk or limbs and provides more than half the effort. 0-Papyknjhb-tzhkpn does ALL the effort. Patient does none of the effort to complete the activity. Or, the assistance of 2 or more helpers is required for the patient to complete the activity. If activity was not attempted, code reason: 7-Patient Refused. 9-Not Applicable-not attempted and the patient did not perform the activity before the current illness, exacerbation or injury. 10-Not Attempted due to Environmental Limitations-(lack of equipment, weather restraints, etc.). 88-Not Attempted due to Medical Conditions or Safety Concerns. Bed Mobility: 6 Transfers (B,C,W/C): 6 Gait: 6 Stairs: 6 Indoor Mobility (Ambulation): Independent Stairs: Independent PT Evaluation-Current Subjective Patient in recliner pre tx, agrees to PT, has 7/10 pain in right arm. Will be co-treating with OT due to poor patient mobility, strength, endurance, severe pa in with activity, coordinate UE and LE during activity, safety and reduce risk of falls. Pt/Family Goals to be independent at home Objective Patient Orientation: Person, Place, Situation Attachments: Oxygen sling RUE, knee immobilizer LLE ROM/Strength ROM Lower Extremities WNL in RLE, LLE WNL but knee not tested Sensory Vision: Wears Glasses Hearing: Functional Sensation Right Lower Extremit: Intact Sensation Left Lower Extremity: Intact Transfers Roll Left & Right (QC): 3 Sit to Lying (QC): 3 Lying to Sitting/Side of Bed(Q: 4 (CGA) Sit to Stand (QC): 2 Chair/Aeb-xv-Dxgdi Xfer(QC): 2 Toilet Transfer (QC): 2 Car Transfer (QC): 88 Car transfer could not be done due to left knee immobilizer Gait Does the Patient Walk?: Yes Mode of Locomotion: Walk Anticipated Mode of Locomotion: Walk Walk 10 feet (QC): 4 Walk 50 ft with 2 Turns(QC): 4 Walk 150 ft (QC): 88 Walking 10ft/uneven surface-QC: 4 Distance: 75' Gait Assistive Device: Walker Vinh Comments/Gait Description L knee immobilizer Wheelchair Training Does the Pt Use a Wheelchair?: Yes Distance: 50', 30' Wheel 50 ft with 2 turns (QC): 3 Wheel 150 ft (QC): 88 min assist around turns Stairs #of Steps: 1 1 Step (curb) (QC): 4 4 Steps (QC): 88 12 Steps (QC): 88 hemiwalker Balance Sitting Static: Good Sitting Dynamic: Good Standing Static: Poor Standing Dynamic: Poor Picking up an Object (QC): 4 (using supervisor refining) Treatment Transfers, wheelchair mobility, ambulation Assessment/Needs Patient required max assist with sit to stand transfers, but CGA with walking. Patient could propel a wheelchair slowly with left arm and R foot but fatigued after a short distance, and required min assist with turns. Patients pain in shoulder and leg increased over the treatment session, and patient felt very nauseated throughout. Patient was left in bed with call light, tray, and all needs met. PT worked on bed mobility and transfers, ambulation, WC mobility, positioning and safety during ADL's and dressing, OT worked on ADL's and dressing, UE positioning and safety during activity Rehab Potential: Fair PT Short Term Goals Short Term Goals Time Frame: Oct 31, 2021 Roll Left & Right: 4 Sit to lyin Lying to sitting on side of be: 4 (SBA) Sit to stand: 3 Chair/syw-ai-aulvt transfer: 3 Toilet transfer: 3 Car transfer: 3 Walk 10 feet: 4 Walk 50 feet with two turns: 4 Walk 150 feet: 4 PT Jail Goals Jail Goals PT Jail Goals Time Frame: November 14, 2021 Roll Left & Right (QC): 6 Sit to Lying (QC): 6 Lying-Sitting on Side/Bed(QC): 6 Sit to Stand (QC): 4 (SBA) Chair/Nyz-nh-Ogxqp Xfer(QC): 4 (SBA) Toilet Transfer (QC): 4 (SBA) Car Transfer (QC): 88 Does the Patient Walk: Yes Walk 10 feet (QC): 6 Walk 50ft with 2 Turns (QC): 6 Walk 150 ft (QC): 6 Walking 10ft on Uneven Surface: 6 1 Step (curb) (QC): 4 4 Steps (QC): 4 12 Steps (QC): 88 Picking up an Object (QC): 6 Wheel 50 feet with 2 turns (QC: 6 Type: Manual Wheel 150 feet: 6 Type: Manual PT Plan Problem List Problem List: Activity Tolerance, Functional Strength, Safety, Balance, Gait, Transfer, Bed Mobility, ROM, Other Treatment/Plan Treatment Plan: Continue Plan of Care Treatment Plan: Bed Mobility, Education, Functional Activity David, Functional Strength, Group Therapy, Gait, Safety, Therapeutic Exercise, Transfers Treatment Duration: November 14, 2021 Frequency: At least 5 of 7 days/Wk (IRF) Estimated Hrs Per Day: 1.5 hours per day Patient and/or Family Agrees t: Yes Safety Risks/Education Patient Education: Gait Training, Transfer Techniques, Steps, Reviewed Precautions, Correct Positioning, W/C Management, Instructions to Caregiver, Safety Issues Teaching Recipient: Patient Teaching Methods: Demonstration, Discussion Response to Teaching: Verbalize Understanding, Reinforcement Needed Discharge Recommendations Plan To work on LE strengthening, wheelchair mobility, ambulation, to be independent at home. Therapy Discharge Recommendati: Home & Family, Post Acute PT Time/GCodes Time In: 1315 Time Out: 1455 Total Billed Treatment Time: 90 Total Billed Treatment 1 visit EVM 10min GT 15min FA 65min PT eval from [id number], OT eval from [id number], co-treat from [id number] PHAM KERN PT Oct 24, 2021 13:43
[2021-10-24] MEDS ORDERED: ASPI-1238 PO ×2 (13:55)
--- NOTE | 2021-10-24 14:14 | Progress Note ---
FRANBENJAMINJEREMY ROSARIO 10/24/21 1414: Progress Note CC: Fall resulting in nondisplaced L patellar fracture, and R humeral head fracture HPI: the patient is an 86 YO male with a history of triple bypass surgery, on aspirin therapy, who presented to the ED yesterday DT a fall. He reports that he tripped over a hose, which resulted in him falling on his L knee and R shoulder. He did not hit his head or lose consciousness. The patient reports a history of a previous fall a few years ago, which resulted in a broken pelvis. He mentions feeling nausea when standing up. He denied vomiting. His sider mechanic is Dr. Rueda. His PCP is Dr. Lockwood. Allergies: Sulfa (Sulfonamide Antibiotics) (Unverified Allergy, Unknown, 03/20/15) quinine (Unverified Allergy, Unknown, 01/16/15) Patient Home Medication List: Amiodarone HCl (Amiodarone HCl) 200 Mg Tablet, 200 MG PO DAILY, (Reported) Entered as Reported by: ABEL HUGHES on 12/03/15 0936 Last Action: Continued Amlodipine Besylate (Amlodipine Besylate) 5 Mg Tablet, 5 MG PO DAILY, (Reported) Entered as Reported by: GUNNER RUTLEDGE on 10/24/21 0550 Last Action: Continued Apixaban (Eliquis) 2.5 Mg Tablet, 2.5 MG PO BID, (Reported) Entered as Reported by: ONELIA JONES on 07/01/16 1245 Aspirin (Aspir 81) 81 Mg Tablet.dr, 81 MG PO DAILY, (Reported) Entered as Reported by: ONELIA JONES on 07/01/16 1245 Last Action: Continued Atorvastatin Calcium (Lipitor Tablet) 10 Mg Tablet, 10 MG PO HS, (Reported) Entered as Reported by: DELIA AHUJA on 01/16/15 0748 Last Action: Continued Bupropion HCl (Bupropion Xl) 300 Mg Tab.er.24h, 300 MG PO DAILY, (Reported) Entered as Reported by: GUNNER RUTLEDGE on 10/24/21 0572 Last Action: Converted Cyanocobalamin (Cyanocobalamin Injection) 1,000 Mcg/Ml Inj, 1,000 MCG IJ every 2 weeks, (Reported) Entered as Reported by: ONELIA JONES on 07/01/161244 Last Action: Continued Ferrous Sulfate (Ferrous Sulfate) 325 Mg Tablet, 325 MG PO HS, (Reported) Entered as Reported by: ABEL HUGHES on 12/03/15 0936 Last Action: Continued Finasteride (Finasteride) 5 Mg Tablet, 5 MG PO HS, (Reported) Entered as Reported by: ONELIA JONES on 07/01/161244 Last Action: Continued Isosorbide Mononitrate (Isosorbide Mononitrate ER) 60 Mg Tab, 60 MG PO DAILY, (Reported) Entered as Reported by: GUNNER RUTLEDGE on 10/24/21 0549 Last Action: Continued Levothyroxine Sodium (Levothyroxine Sodium) 175 Mcg Tablet, 175 MCG PO DAILY, (Reported) Entered as Reported by: GUNNER RUTLEDGE on 10/24/2142 Last Action: Converted Losartan Potassium (Losartan Potassium) 100 Mg Tablet, 100 MG PO DAILY, (Reported) Entered as Reported by: GUNNER RUTLEDGE on 10/24/2151 Last Action: Continued Omeprazole (Omeprazole) 40 Mg Capsule.dr, 40 MG PO DAILY, (Reported) Entered as Reported by: GUNNER RUTLEDGE on 10/24/21 0547 Last Action: Converted Prasugrel HCl (Prasugrel HCl) 10 Mg Tablet, 10 MG PO DAILY, (Reported) Entered as Reported by: GUNNER RUTLEDGE on 10/24/21 0544 Last Action: Continued Vit A/C/E/Zinc/Co (Preservision Areds Softgel) 1 Cap Capsule, 1 CAP PO BID, (Reported) Entered as Reported by: GUNNER RUTLEDGE on 10/24/21 0554 Last Action: Continued Discontinued Medications Amlodipine Besylate (Amlodipine Besylate) 10 Mg Tablet, 10 MG PO DAILY, ( Reported) Discontinued Reason: No Longer Taking Entered as Reported by: ONELIA JONES on 07/01/161244 Last Action: Discontinued Isosorbide Mononitrate (Isosorbide Mononitrate Er) 60 Mg Tab.er.24h, 60 MG PO BID, (Reported) Discontinued Reason: Duplicate Order Entered as Reported by: DELIA AHUJA on 7/7/747 Last Action: Discontinued Levothyroxine Sodium (Levothyroxine 125 Mcg Tab) 125 Mcg Tablet, 150 MCG PO DAILY, (Reported) Discontinued Reason: No Longer Taking Entered as Reported by: DELIA AHUJA on 01/16/15 0748 Last Action: Discontinued Lorazepam (Lorazepam) 0.5 Mg Tablet, 0.5 MG PO BID PRN for ANXIETY, (Reported) Discontinued Reason: No Longer Taking Entered as Reported by: ABEL HUGHES on 12/03/15 0936 Last Action: Discontinued Prasugrel HCl (Effient) 10 Mg Tablet, 10 MG PO DAILY, (Reported) Discontinued Reason: Duplicate Order Entered as Reported by: ONELIA JONES on 07/01/16 1245 Last Action: Discontinued Past Fclllrp-Xahvyj-Figsvk Hx: Patient Social History Smoking Status: Not a current Smoker Former Smoker, Quit: December 06, 1965 Recent Hopitalizations: No Have you traveled recently?: No Alcohol Use?: No Pt feels they are or have been: No Immunizations Up To Date Date of Pneumonia Vaccine: Jan 16, 2014 Date of Influenza Vaccine: May 02, 2016 Seasonal Allergies Seasonal Allergies: No Surgeries CABG, Coronary Stent, Orthopedic Cardiovascular Atrial Fibrillation, Coronary Artery Disease, High Cholesterol, Hypertension Musculoskeletal Arthritis, Back Injury, Chronic Back Pain Endocrine Endocrine Disorders: Hypothyroidsim Review of Systems: Constitutional: No chills, No diaphoresis, No fever EENTM: No blurred vision, No double vision Respiratory: No cough, No short of breath Cardiovascular: No chest pain, No palpitations Gastrointestinal: No constipation, No diarrhea; nausea; No vomiting Musculoskeletal: joint pain (L knee and R shoulder) Skin: No change in color, No lesions Psychiatric/Neurological: Denies Anxiety, Denies Depressed, Denies Emotional Problems Physical Exam: Vital Signs - First Documented 10/23/21, 16:33 Temp 36.8 Pulse 71 Resp 16 B/P (MAP) 174/78 (110) Pulse Ox 94 Capillary Refill : Less Than 3 Seconds Height, Weight, BMI Height: 6'2.00" Weight: 190lbs. 0.0oz. 86.745503mc; 22.04 BMI General Appearance: No Apparent Distress Eyes: Bilateral Eye Normal Inspection, Bilateral Eye PERRL, Bilateral Eye EOMI HEENT: PERRL/EOMI, Moist Mucous Membranes Neck: Full Range of Motion, Normal Inspection Respiratory: Chest Non Tender, Lungs Clear, Normal Breath Sounds, No Accessory Muscle Use, No Respiratory Distress Cardiovascular: Regular Rate, Rhythm, No Edema, No Gallop, No JVD, No Murmur, Normal Peripheral Pulses Gastrointestinal: Normal Bowel Sounds, No Organomegaly, No Pulsatile Mass, Non Tender, Soft Extremity: Normal Inspection, No Calf Tenderness, No Pedal Edema, Other (PT with fracture of L patella (nondisplaced), and R humeral head) Neurologic/Psychiatric: Alert, Oriented x3, No Motor/Sensory Deficits, Normal Mood/Affect Skin: Normal Color, Warm/Dry Assessment: Fall nondisplaced L patellar fracture R humeral head fracture Decreased strength Fragility Hx of triple bypass surgery Plan: Fall nondisplaced L patellar fracture R humeral head fracture Decreased strength Fragility PT transferred to inpatient rehab, where he will take part in PT and OT to regain his strength and stability before DC home. Appreciate Orthopaedics who were consulted due to his fractures. Continue on home medications. Hx of triple bypass surgery Appreciate cardiology, who were consulted due to his previous cardiac Hx and blood thinning medication. TAMELA KING DO 10/25/21 0643: Supervisory-Addendum Brief Verification & Attestation Participated in pt care: history, MDM, physical Personally performed: exam, history, MDM, supervision of care Care discussed with: Medical Student Procedures: n/a Results interpretation: Verified all documentation Verification and Attestation of Medical Student E/M Service A medical student performed and documented this service in my presence. I reviewed and verified all information documented by the medical student and made modifications to such information, when appropriate. I personally performed the physical exam and medical decision making. Tamela King, Oct 25, 2021,06:43 JEREMY SUBRAMANIAN Oct 24, 2021 14:14 TAMELA KING DO Oct 25, 2021 06:43
--- NOTE | 2021-10-24 14:34 | Occupational Therapy Eval ---
OT Evaluation-General/PLF Medical Diagnosis Admission Date Oct 24, 2021 at 13:15 Medical Diagnosis: fall/right humeral fracture/left patellar fracture Onset Date: Oct 23, 2021 Therapy Diagnosis Therapy Diagnosis: reduced adl status Height/Weight Height (Feet): 6 Height (Inches): 2.00 Weight (Pounds): 190 Weight (Ounces): 0.0 Precautions Precautions/Isolations: Fall Prevention, Standard Precautions Weight Bear Status Weight Bearing Restriction: Weight Bearing/Tolerated, Non Weight Bearing NWB RUE, no use of R arm WBAT LLE with knee immobolizer Referral Physician: Tamela Angeles DO Referral Reason: Evaluation/Treatment Medical History Pertinent Medical History: Atrial Fib, CABG, CAD, HTN Additional Medical History Triple bypass Current History Pt presents to ER with R arm pain and L knee pain after experiencing a fall. Found to have R humerus fx and L patellar fx. Ortho recommends LLE WBAT with Knee immobolizer and RUE NWB with sling. Per patient, he lives with in a single story home. He was indep with adls and iadls prior to admission. His recently had back surgery and will be unable to provide any lifting assistance. Pt was not using any AD prior to admission. Reviewed History: Yes Social History Home: Single Level Current Living Status: Spouse Entry Into Home: Stairs With Railing Steps Into Home: 3 ADL-Prior Level of Function SCALE: Activities may be completed with or without assistive devices. 1-Dzpfrvxegy-rhiqhoc completes the activity by him/herself with no assistance from a helper. 5-Set-up or Clean-up Assistance-helper sets up or cleans up; patient completes activity. [place] assists only prior to or following the activity. 4-Supervision or Touching Assistance-helper provides verbal cues and/or touching/steadying and/or contact guard assistance as patient completes activity. Assistance may be provided throughout the activity or intermittently. 3-Partial/Moderate Assistance-helper does LESS THAN HALF the effort. [place] lifts, holds or supports trunk or limbs, but provides less than half the effort. 2-Substantial/Maximal Assistance-helper does MORE THAN HALF the effort. [place] lifts or holds trunk or limbs and provides more than half the effort. 4-Orfevvtxa-gjncvk does ALL the effort. Patient does none of the effort to complete the activity. Or, the assistance of 2 or more helpers is required for the patient to complete the activity. If activity was not attempted, code reason: 7-Patient Refused. 9-Not Applicable-not attempted and the patient did not perform the activity before the current illness, exacerbation or injury. 10-Not Attempted due to Environmental Limitations-(lack of equipment, weather restraints, etc.). 88-Not Attempted due to Medical Conditions or Safety Concerns. Self Care: Independent Functional Cognition: Independent OT Current Status Subjective Pt reports 7/10 pain at rest and 9/10 pain with activity. Pain worse in RUE. Pt nauseous throughout session. Appearance Pt left supine in bed, all needs within reach, in room. Mental Status/Objective Patient Orientation: Person, Place, Situation Attachments: IV, Knee Immobilizer, Oxygen (2L) Current Glasses/Contacts: Yes Dentures/Partials: Yes Hand Dominance: Right Upper Extremity ROM LUE WNL R finger/digit WNL. No shoulder/elbow performed. Per order, no use of R arm. ADL-Treatment Eating (QC): 4 Oral Hygiene (QC): 3 Shower/Bathe Self (QC): 7 Upper Body Dressing (QC): 1 Lower Body Dressing (QC): 1 On/Off Footwear (QC): 1 Toileting Hygiene (QC): 2 (per clinical judgment) Co-treat with PT for part of session due to poor activity tolerance, high pain levels, and need of 2 skilled clinicians to progress indep and safety with adls and mobility. Multiple sit<>stands throughout treatment: mod-max a. Extra time needed secondary to inability to flex L knee. Slight unsteadiness with initial standing (2 mild LOB needing mod a to recover), improves with time. Pt dependent to thread BLE's into pants due to inability to flex L knee and significant pain in RUE. Pt reports he completed tasks with increased effort at baseline. He stood with mod a x1. He attempts to pull clothing up over hips with LUE (zero UE support) but requires mod a to pull up on R side after 2 failed attempts and 1 mild LOB posteriorly. Dependent to don/doff/adjust sling on RUE. educated on appropriate clothing to bring in to compensate for limited RUE use/rom. Pt sat in w/c to complete grooming tasks. Assist needed for complete set up and to thoroughly brush/rinse dentures. Toilet transfer x2. Initially pt requires mod a to stand from low toilet. Post adaptation (commode over for increased height), pt able to perform with Min a. Several breaks taken throughout session secondary to nausea and pt feeling as if he was going to be sick. Other Treatments Pt ambulated with use of yany walker and Min A. He fatigues quickly and requires several seated rest breaks. Education OT Patient Education: Correct positioning, Energy conservation, Modified ADL techniques, Progress toward Goal/Update tx plan, Purpose of tx/functional activities, Reviewed precautions, Rehab process, Safety issues, Transfer techniques, W/C management Teaching Recipient: Patient, Family Teaching Methods: Demonstration, Discussion Response to Teaching: Verbalize Understanding, Return Demonstration, Reinforcement Needed OT Short Term Goals Short Term Goals Time Frame: Nov 04, 2021 Eatin Oral hygiene: 4 Toileting hygiene: 3 Shower/bathe self: 3 Upper body dressin Lower body dressin Putting on/taking off footwear: 2 OT Registration Rep Goals Registration Rep Goals Time Frame: November 14, 2021 Eating (QC): 5 Oral Hygiene (QC): 5 Toileting Hygiene (QC): 6 Shower/Bathe Self (QC): 5 Upper Body Dressing (QC): 4 Lower Body Dressing (QC): 4 On/Off Footwear (QC): 4 1=Demonstrate adherence to instructed precautions during ADL tasks. 2=Patient will verbalize/demonstrate understanding of assistive devices/modifications for ADL. 3=Patient will improve strength/tolerance for activity to enable patient to perform ADL's. OT Education/Plan Problem List/Assessment Assessment: Decreased Activ Tolerance, Decreased UE Strength, Impaired Funct Balance, Impaired I ADL's, Impaired Self-Care Skills, Restricted Funct UE ROM Discharge Recommendations Plan/Recommendations: Continue POC Therapy Discharge Recommendati: Homemaker Support, Post Acute OT (Home health OT) Treatment Plan/Plan of Care Treatment,Training & Education: Yes Patient would benefit from OT for education, treatment and training to promote independence in ADL's, mobility, safety and/or upper extremity function for ADL's. Plan of Care: ADL Retraining, Functional Mobility, Group Exercise/Act as Ind, UE Funct Exercise/Act, W/C Management Training Treatment Duration: November 14, 2021 Frequency: At least 5 of 7 days/Wk (IRF) Estimated Hrs Per Day: 1.5 hours per day (60-90 min/day) Agreement: Yes Rehab Potential: Fair Time/GCodes Start Time: 13:25 Stop Time: 14:55 Total Time Billed (hr/min): 90 Billed Treatment Time 1 visit EVM (10 min) ADL x2 (35 min) FA x3 (45 min) Sydnie Shine OT Oct 24, 2021 14:33
[2021-10-24] MEDS ORDERED: FESO45ML PO (14:38)
--- NOTE | 2021-10-24 15:42 | PM&R Post Admission Assessment ---
PM&R HP Date of Visit: Oct 24, 2021 Time of Visit: 14:00 History of Present Illness Chief complaint: Fall with right proximal humerus fracture and right patellar fracture HPI: This is an 86-year-old white male clinic patient of Dr. Beltran and Dr. [facility] who has a past medical history of triple bypass surgery who presents to inpatient rehab after observation status from ER admission after suffering a fall at home which resulted in a right proximal humerus fracture with patellar fracture. He does have a history of a previous fall which resulte d in a pelvic fracture. He will be admitted to inpatient rehab for a short stay. PLOF without use of assistive devices. CC: Fall resulting in nondisplaced L patellar fracture, and R humeral head fracture HPI: the patient is an 86 YO male with a history of triple bypass surgery, on aspirin therapy, who presented to the ED yesterday DT a fall. He reports that he tripped over a hose, which resulted in him falling on his L knee and R shoulder. He did not hit his head or lose consciousness. The patient reports a history of a previous fall a few years ago, which resulted in a broken pelvis. He mentions feeling nausea when standing up. He denied vomiting. His conveyor loader is Dr. Rueda. His PCP is Dr. Lockwood. Allergies: Sulfa (Sulfonamide Antibiotics) (Unverified Allergy, Unknown, 03/20/15) quinine (Unverified Allergy, Unknown, 01/16/15) Patient Home Medication List: Amiodarone HCl (Amiodarone HCl) 200 Mg Tablet, 200 MG PO DAILY, (Reported) Entered as Reported by: ABEL HUGHES on 12/03/15 0936 Last Action: Continued Amlodipine Besylate (Amlodipine Besylate) 5 Mg Tablet, 5 MG PO DAILY, (Reported) Entered as Reported by: GUNNER RUTLEDGE on 10/24/21 0550 Last Action: Continued Aspirin (Aspir 81) 81 Mg Tablet.dr, 81 MG PO DAILY, (Reported) Entered as Reported by: ONELIA OJNES on 07/01/16 1245 Last Action: Continued Atorvastatin Calcium (Lipitor Tablet) 10 Mg Tablet, 10 MG PO HS, (Reported) Entered as Reported by: DELIA AHUJA on 01/16/15 0748 Last Action: Continued Bupropion HCl (Bupropion Xl) 300 Mg Tab.er.24h, 300 MG PO DAILY, (Reported) Entered as Reported by: GUNNER RUTLEDGE on 10/24/21543 Last Action: Converted Cyanocobalamin (Cyanocobalamin Injection) 1,000 Mcg/Ml Inj, 1,000 MCG IJ every 2 weeks, (Reported) Entered as Reported by: ONELIA JONES on 07/01/16 124 Last Action: Continued Ferrous Sulfate (Ferrous Sulfate) 325 Mg Tablet, 325 MG PO HS, (Reported) Entered as Reported by: ABEL HUGHES on 12/03/15 0936 Last Action: Continued Finasteride (Finasteride) 5 Mg Tablet, 5 MG PO HS, (Reported) Entered as Reported by: ONELIA JONES on 07/01/161244 Last Action: Continued Isosorbide Mononitrate (Isosorbide Mononitrate ER) 60 Mg Tab, 60 MG PO DAILY, (Reported) Entered as Reported by: GUNNER RUTLEDGE on 10/24/21548 Last Action: Continued Levothyroxine Sodium (Levothyroxine Sodium) 175 Mcg Tablet, 175 MCG PO DAILY, (Reported) Entered as Reported by: GUNNER RUTLEDGE on 10/24/2142 Last Action: Converted Losartan Potassium (Losartan Potassium) 100 Mg Tablet, 100 MG PO DAILY, (Reported) Entered as Reported by: GUNNER RUTLEDGE on 10/24/21550 Last Action: Continued Omeprazole (Omeprazole) 40 Mg Capsule.dr, 40 MG PO DAILY, (Reported) Entered as Reported by: GUNNER RUTLEDGE on 10/24/2147 Last Action: Converted Prasugrel HCl (Prasugrel HCl) 10 Mg Tablet, 10 MG PO DAILY, (Reported) Entered as Reported by: GUNNER RUTLEDGE on 10/24/2144 Last Action: Continued Vit A/C/E/Zinc/Co (Preservision Areds Softgel) 1 Cap Capsule, 1 CAP PO BID, (Reported) Entered as Reported by: GUNNER RUTLEDGE on 10/24/2154 Last Action: Continued Discontinued Medications Amlodipine Besylate (Amlodipine Besylate) 10 Mg Tablet, 10 MG PO DAILY, (Reported) Discontinued Reason: No Longer Taking Entered as Reported by: ONELIA JONES on 07/01/165 Last Action: Discontinued Isosorbide Mononitrate (Isosorbide Mononitrate Er) 60 Mg Tab.er.24h, 60 MG PO BID, (Reported) Discontinued Reason: Duplicate Order Entered as Reported by: DELIA AHUJA on 01/16/15747 Last Action: Discontinued Levothyroxine Sodium (Levothyroxine 125 Mcg Tab) 125 Mcg Tablet, 150 MCG PO DAILY, (Reported) Discontinued Reason: No Longer Taking Entered as Reported by: DELIA AHUJA on 01/16/15747 Last Action: Discontinued Lorazepam (Lorazepam) 0.5 Mg Tablet, 0.5 MG PO BID PRN for ANXIETY, (Reported) Discontinued Reason: No Longer Taking Entered as Reported by: ABEL HUGHES on 12/03/1536 Last Action: Discontinued Prasugrel HCl (Effient) 10 Mg Tablet, 10 MG PO DAILY, (Reported) Discontinued Reason: Duplicate Order Entered as Reported by: ONELIA JONES on 07/01/161244 Last Action: Discontinued Past Fhrgmuy-Olynwh-Khxmuc Hx: Patient Social History Smoking Status: Not a current Smoker Former Smoker, Quit: December 06, 1965 Recent Hopitalizations: No Have you traveled recently?: No Alcohol Use?: No Pt feels they are or have been: No Immunizations Up To Date Date of Pneumonia Vaccine: Jan 16, 2014 Date of Influenza Vaccine: May 02, 2016 Seasonal Allergies Seasonal Allergies: No Surgeries CABG, Coronary Stent, Orthopedic Cardiovascular Atrial Fibrillation, Coronary Artery Disease, High Cholesterol, Hypertension Musculoskeletal Arthritis, Back Injury, Chronic Back Pain Endocrine Endocrine Disorders: Hypothyroidsim Review of Systems: Constitutional: No chills, No diaphoresis, No fever EENTM: No blurred vision, No double vision Respiratory: No cough, No short of breath Cardiovascular: No chest pain, No palpitations Gastrointestinal: No constipation, No diarrhea; nausea; No vomiting Musculoskeletal: joint pain (L knee and R shoulder) Skin: No change in color, No lesions Psychiatric/Neurological: Denies Anxiety, Denies Depressed, Denies Emotional Problems Physical Exam: Vital Signs - First Documented 10/23/21, 16:33 Temp 36.8 Pulse 71 Resp 16 B/P (MAP) 174/78 (110) Pulse Ox 94 Capillary Refill : Less Than 3 Seconds Height, Weight, BMI Height: 6'2.00" Weight: 190lbs. 0.0oz. [id number]; 22.04 BMI General Appearance: No Apparent Distress Eyes: Bilateral Eye Normal Inspection, Bilateral Eye PERRL, Bilateral Eye EOMI HEENT: PERRL/EOMI, Moist Mucous Membranes Neck: Full Range of Motion, Normal Inspection Respiratory: Chest Non Tender, Lungs Clear, Normal Breath Sounds, No Accessory Muscle Use, No Respiratory Distress Cardiovascular: Regular Rate, Rhythm, No Edema, No Gallop, No JVD, No Murmur, Normal Peripheral Pulses Gastrointestinal: Normal Bowel Sounds, No Organomegaly, No Pulsatile Mass, Non Tender, Soft Extremity: Normal Inspection, No Calf Tenderness, No Pedal Edema, Other (PT with fracture of L patella (nondisplaced), and R humeral head) Neurologic/Psychiatric: Alert, Oriented x3, No Motor/Sensory Deficits, Normal Mood/Affect Skin: Normal Color, Warm/Dry Assessment: Fall nondisplaced L patellar fracture R humeral head fracture Decreased strength Fragility Hx of triple bypass surgery Plan: Fall nondisplaced L patellar fracture R humeral head fracture Decreased strength Fragility PT transferred to inpatient rehab, where he will take part in PT and OT to regain his strength and stability before DC home. Appreciate Orthopaedics who were consulted due to his fractures. Continue on home medications. Hx of triple bypass surgery Appreciate cardiology, who were consulted due to his previous cardiac Hx and blood thinning medication. Past Ycgwnzt-Xvinxu-Mdjwjn Hx Past Med/Social Hx: Reviewed Nursing Past Med/Soc Hx, Reviewed and Corrections made Patient Social History Marrital Status: single Employed/Student: retired Alcohol Use: Denies Use Smoking Status: Former Smoker Former Smoker, Quit: December 06, 1965 Recent Hopitalizations: No Immunizations Up To Date Date of Pneumonia Vaccine: Jan 16, 2014 Date of Influenza Vaccine: May 02, 2016 Seasonal Allergies Seasonal Allergies: No Past Medical History Surgeries: CABG, Coronary Stent, Orthopedic Cardiac: Atrial Fibrillation, Coronary Artery Disease, High Cholesterol, Hypertension Musculoskeletal: Arthritis, Back Injury, Chronic Back Pain Endocrine: Hypothyroidsim Prior Level of Function Bed Mobility: 6 Transfers: 6 Gait: 6 Stairs: 6 Indoor Mobility (Ambulation): Independent Stairs: Independent Self Care: Independent Functional Cognition: Independent Current Level of Fuctioning Roll Left to Right: 3 Sit to Lyin Lying to Sitting/Side of Bed: 4 (CGA) Sit to Stand: 2 Chair/Rlf-hm-Tuatb Xfer: 2 Car Transfer: 88 Does the Patient Walk: Yes Mode of Locomotion: Walk Anticipated Mode of Locomotion: Walk Walk 10 feet: 4 Walk 50 ft with 2 Turns: 4 Walk 150 ft: 88 Walking 10ft on uneven surface: 4 Gait Assistive Device: Walker Vinh Does the Pt Use a Wheelchair: Yes Wheelchair Distance: 50', 30' Wheel 50 ft with 2 turns: 3 Wheel 150 ft: 88 #of Steps: 1 1 Step (curb): 4 4 Steps: 88 12 Steps: 88 Picking up an Object: 4 (using urinalysis technician) Eatin Oral Hygiene: 3 Shower/Bathe Self: 7 Upper Body Dressin Lower Body Dressin On/Off Footwear: 1 Toileting Hygiene: 2 (per clinical judgment) PM&R Allergy/Meds/Data Review Allergies Coded Allergies: Sulfa (Sulfonamide Antibiotics) (Unverified Allergy, Unknown, 03/20/15) quinine (Unverified Allergy, Unknown, 01/16/15) Home Medications Scheduled Amiodarone HCl (Amiodarone HCl), 200 MG PO MO,,,FR,SA, (Reported) Amlodipine Besylate (Amlodipine Besylate), 5 MG PO DAILY, (Reported) Aspirin (Aspirin EC), 81 MG PO [place],,,SA, (Reported) Aspirin (Aspirin EC), 162 MG PO MO,,FR, (Reported) Bupropion HCl (Bupropion Xl), 300 MG PO DAILY, (Reported) Cyanocobalamin (Cyanocobalamin Injection), 1,000 MCG IJ MONTHLY, (Reported) Ferrous Sulfate (Ferrous Sulfate), 15 ML PO DAILY, (Reported) Finasteride (Finasteride), 5 MG PO HS, (Reported) Isosorbide Mononitrate (Isosorbide Mononitrate ER), 60 MG PO BID, (Reported) Levothyroxine Sodium (Levothyroxine Sodium), 175 MCG PO DAILY, (Reported) Losartan Potassium (Losartan Potassium), 100 MG PO DAILY, (Reported) Omeprazole (Omeprazole), 40 MG PO HS, (Reported) Prasugrel HCl (Prasugrel HCl), 10 MG PO DAILY, (Reported) Vit A/C/E/Zinc/Co (Preservision Areds Softgel), 1 CAP PO BID, (Reported) Discontinued Medications Amlodipine Besylate (Amlodipine Besylate), 10 MG PO DAILY, (Reported) Discontinued Reason: No Longer Taking Apixaban (Eliquis), 2.5 MG PO BID, (Reported) Discontinued Reason: No Longer Taking Atorvastatin Calcium (Lipitor Tablet), 10 MG PO HS, (Reported) Discontinued Reason: No Longer Taking Ferrous Sulfate (Ferrous Sulfate), 325 MG PO HS, (Reported) Discontinued Reason: Prescription changed Isosorbide Mononitrate (Isosorbide Mononitrate Er), 60 MG PO BID, (Reported) Discontinued Reason: Duplicate Order Levothyroxine Sodium (Levothyroxine 125 Mcg Tab), 150 MCG PO DAILY, (Reported) Discontinued Reason: No Longer Taking Lorazepam (Lorazepam), 0.5 MG PO BID PRN for ANXIETY, (Reported) Discontinued Reason: No Longer Taking Prasugrel HCl (Effient), 10 MG PO DAILY, (Reported) Discontinued Reason: Duplicate Order Current Medications Current Medications Reviewed Review of Systems Constitutional: see HPI, malaise, weakness EENTM: no symptoms reported Respiratory: no symptoms reported Cardiovascular: no symptoms reported Gastrointestinal: no symptoms reported Genitourinary: no symptoms reported Musculoskeletal: joint pain Skin: no symptoms reported Psychiatric/Neurological: No Symptoms Reported All Other Systems Reviewed Negative Unless Noted: Yes Physical Exam Physical Exam Vital Signs Vital Signs - First Documented 10/24/21 13:00 Temp 36.9 Pulse 64 Resp 18 B/P (MAP) 139/63 (88) Pulse Ox 96 O2 Delivery Room Air Capillary Refill : Height, Weight, BMI Height: 6'2.00" Weight: 190lbs. 0.0oz. [id number]; 22.04 BMI Method:Stated General Appearance: No Apparent Distress, WD/WN, Chronically ill Eyes: Bilateral Eye Normal Inspection, Bilateral Eye PERRL HEENT: PERRL/EOMI, Normal ENT Inspection, Pharynx Normal Neck: Full Range of Motion, Normal Inspection, Non Tender, Supple, Carotid Bruit Respiratory: Chest Non Tender, Lungs Clear, Normal Breath Sounds, No Accessory Muscle Use, No Respiratory Distress Cardiovascular: Regular Rate, Rhythm, No Edema, No Gallop, No JVD, No Murmur, Normal Peripheral Pulses Gastrointestinal: Normal Bowel Sounds, No Organomegaly, No Pulsatile Mass, Non Tender, Soft Back: Normal Inspection, No CVA Tenderness, No Vertebral Tenderness Extremity: Normal Capillary Refill, Normal Inspection, Normal Range of Motion (Except for right arm and right leg), Non Tender, No Calf Tenderness, No Pedal Edema Neurologic/Psychiatric: Alert, Oriented x3, No Motor/Sensory Deficits, Normal Mood/Affect, resident program specialist II-XII Norm as Tested, Abnormal Gait, Motor Weakness (Gen eralized) Skin: Normal Color, Warm/Dry Lymphatic: No Adenopathy PM&R Medical Assessment & Plan REHAB/MEDICAL ASSESSMENT AND PLAN: REHAB IMPAIRMENT GROUP: Right humerus fracture and right patella fracture ETIOLOGIC DIAGNOSIS: Right humerus fracture and right patella fracture The comorbidities that impact the patients function and/or functional outcome by: Advanced age, fall risk, heart disease, frail status REHAB PLAN: The patient is being admitted to our comprehensive inpatient rehabilitation facility and can tolerate the intensity of service consisting of at least: 180 minutes of therapy a day, 5 out of 7 days a week Rehab treatment will consist of: PT and OT will focus on regaining function in order to navigate at home with decrease fall risk and use of assistive devices The patient/family has a good understanding of our discharge process and will benefit from an interdisciplinary inpatient rehabilitation program. The patient has potential to make improvement and is in need of at least two of the following multidisciplinary therapies including but not limited to physical, occupational, speech, and prosthetics and orthotics. Additionally the patient will need services from respiratory, nutritional services, wound care, psychology, etc. (Customize this to each patient). Given the patients complex condition and risk of further medical complications, rehabilitation services cannot be safely or effectively provided at a lower level of care such as a detention facility. BARRIERS TO DISCHARGE: Advanced age and frail status ESTIMATED LOS: 5 days DISPOSITION: Home RELEVANT CHANGES SINCE PREADMISSION SCREENING: I have compared the patients medical and functional status at the time of the preadmission screening and there are: No changes PROGNOSIS: Fair REHABILITATION GOALS: 1.PT and OT will focus on regaining function in order to navigate at home with decrease fall risk and use of assistive devices All the above goals were reviewed with the patient and he/she is in agreement. By signing this document, I acknowledge that I have personally performed a full physical examination on this patient within 24 hours of admission to this [facility] rehabilitation facility and have determined the patient to be able to tolerate the above course of treatment at an intensive level for a reasonable period of time. I will be completing a detailed individualized Plan of Care for this patient by day #4 of the patients stay based upon the Preadmission Screen, the Post-Admission Evaluation, and the therapy evaluations. Admission Dx/Comorbidities: (1) Fracture of head of humerus ICD Codes: S42.293A - Other displaced fracture of upper end of unspecified humerus, initial encounter for closed fracture (2) Patella fracture ICD Codes: S82.009A - Unspecified fracture of unspecified patella, initial encounter for closed fracture (3) Fall on same level ICD Codes: W18.30XA - Fall on same level, unspecified, initial encounter Assessment/Plan Assessment and Plan Assess & Plan/Chief Complaint Assessment: Fall Proximal right humerus fracture Right patellar fracture Atrial fibrillation presumed not an anticoagulation candidate due to fall risk? Consulting cardiology CAD previous triple bypass Hypertension Hyperlipidemia Hypothyroidism Plan: Pain control PT and OT Assistive devices Cardiology consult Orthopedic consult ELLIS KING DO Oct 24, 2021 15:42
[2021-10-24] MEDS ORDERED: CYANOCOBALAMIN INJ 1000 MCG/ML IM SCH (16:00)
[2021-10-24 19:38] VITALS: BP 141/61
[2021-10-24 19:40] VITALS: BP 141/61
[2021-10-24] MEDS: PANTOPRAZOLE 40 MG (PROTONIX) TAB PO SCH (20:31)
[2021-10-24] MEDS: FINASTERIDE (PROSCAR) 5 MG TAB PO SCH (20:31)
[2021-10-24] MEDS: ISOSORBIDE MONONITRATE 60 MG (IMDUR) TAB PO SCH (20:31)
[2021-10-24] MEDS: DOCUSATE SODIUM 100 MG (COLACE) CAP PO SCH (20:42)
[2021-10-24] MEDS: SENNA W/DOCUSATE (SENOKOT S) TABLET PO SCH (20:42)
[2021-10-24] MEDS: polyethylene glycoL POWDER 17 GM (MIRALAX) PACK PO SCH (20:42)
[2021-10-24] MEDS ORDERED: NON-FORMULARY MEDICATION 1 EA EA (Omeprazole 40 MG) PO SCH (21:00)
[2021-10-25 06:04] LABS: HEMOGLOBIN 9.8 g/dL (13.3-17.7); LYMPHOCYTES # (AUTO) 0.9 10^3/uL (1.0-4.0)
[2021-10-25 06:05] LABS: BASOPHILS % (AUTO) 1 % (0-10); EOSINOPHILS # (AUTO) 0.4 10^3/uL (0.0-0.3); EOSINOPHILS % (AUTO) 5 % (0-10); HEMATOCRIT 31 % (40-54); LYMPHOCYTES % (AUTO) 10 % (12-44); MEAN CORPUSCULAR HEMOGLOBIN 28 pg (25-34); MEAN CORPUSCULAR HGB CONC 32 g/dL (32-36); MEAN CORPUSCULAR VOLUME 89 fL (80-99); MEAN PLATELET VOLUME 12.6 fL (9.0-12.2); MONOCYTES # (AUTO) 1.1 10^3/uL (0.0-1.0); MONOCYTES % (AUTO) 13 % (0-12); NEUTROPHILS # (AUTO) 6.2 10^3/uL (1.8-7.8); NEUTROPHILS % (AUTO) 71 % (42-75); WHITE BLOOD COUNT 8.7 10^3/uL (4.3-11.0)
[2021-10-25 06:17] LABS: ALBUMIN 3.6 GM/DL (3.2-4.5)
[2021-10-25 06:18] LABS: POTASSIUM 4.2 MMOL/L (3.6-5.0)
[2021-10-25 06:19] LABS: CALCIUM 8.6 MG/DL (8.5-10.1)
[2021-10-25] MEDS: LEVOTHYROXINE 100 MCG (LEVOTHROID) TAB PO SCH (06:19)
[2021-10-25] MEDS: LEVOTHYROXINE 75 MCG (LEVOTHROID) TABLET PO SCH (06:19)
[2021-10-25 06:20] LABS: TOTAL PROTEIN 5.7 GM/DL (6.4-8.2)
[2021-10-25 06:22] LABS: BILIRUBIN,TOTAL 0.4 MG/DL (0.1-1.0)
[2021-10-25 06:24] LABS: CREATININE SERUM 0.98 MG/DL (0.60-1.30)
[2021-10-25 06:28] LABS: PLATELET COUNT 88 10^3/uL (130-400); SMEAR SCAN COMMENT YES
--- NOTE | 2021-10-25 06:58 | PM&R Progress Note ---
Subjective HPI/CC On Admission Date Seen by Provider: Oct 25, 2021 Time Seen by Provider: 12:00 Subjective/Events-last exam 10/25/2021: Patient doing really well Wants to go home soon Patient had 2 near falls during therapy indicating he really needs to stay Cardiology consulted Pain is pretty well controlled on oxycodone but hydrocodone makes him delirious Review of Systems General: Fatigue, Malaise Musculoskeletal: arm pain, leg pain Objective Exam Vital Signs Vital Signs Date Time Temp Pulse Resp B/P (MAP) Pulse Ox O2 Delivery O2 Flow Rate FiO2 10/25/21 20:40 96 Nasal Cannula 2.00 10/25/21 20:00 37.2 68 16 133/62 (85) Capillary Refill : General Appearance: No Apparent Distress, WD/WN, Chronically ill HEENT: PERRL/EOMI, Normal ENT Inspection, Pharynx Normal Neck: Full Range of Motion, Normal Inspection, Non Tender, Supple, Carotid Bruit Respiratory: Chest Non Tender, Lungs Clear, Normal Breath Sounds, No Accessory Muscle Use, No Respiratory Distress Cardiovascular: Regular Rate, Rhythm, No Edema, No Gallop, No JVD, No Murmur, Normal Peripheral Pulses Gastrointestinal: Normal Bowel Sounds, No Organomegaly, No Pulsatile Mass, Non Tender, Soft Back: Normal Inspection, No CVA Tenderness, No Vertebral Tenderness Extremity: Normal Capillary Refill, Normal Inspection, Normal Range of Motion (Except for right arm and right leg), Non Tender, No Calf Tenderness, No Pedal Edema Neurologic/Psychiatric: Alert, Oriented x3, No Motor/Sensory Deficits, Normal Mood/Affect, seating upholsterer II-XII Norm as Tested, Abnormal Gait, Motor Weakness (Generalized) Skin: Normal Color, Warm/Dry Lymphatic: No Adenopathy Results/Procedures Lab Laboratory Tests 10/25/21 05:54 Patient resulted labs reviewed. FIM Transfers Therapy Code Descriptions/Definitions Functional [place] Measure: 0=Not Assessed/NA 4=Minimal Assistance 1=Total Assistance 5=Supervision or Setup 2=Maximal Assistance 6=Modified [place] 3=Moderate Assistance 7=Complete IndependenceSCALE: Activities may be completed with or without assistive devices. 6-Bjyojuqqhc-zhzpvdp completes the activity by him/herself with no assistance from a helper. 5-Set-up or Clean-up Assistance-helper sets up or cleans up; patient completes activity. [place] assists only prior to or following the activity. 4-Supervision or Touching Assistance-helper provides verbal cues and/or touching/steadying and/or contact guard assistance as patient completes activity. Assistance may be provided throughout the activity or intermittently. 3-Partial/Moderate Assistance-helper does LESS THAN HALF the effort. [place] lifts, holds or supports trunk or limbs, but provides less than half the effort. 2-Substantial/Maximal Assistance-helper does MORE THAN HALF the effort. [place] lifts or holds trunk or limbs and provides more than half the effort. 1-Ujjckbcrq-rnyfed does ALL the effort. Patient does none of the effort to com plete the activity. Or, the assistance of 2 or more helpers is required for the patient to complete the activity. If activity was not attempted, code reason: 7-Patient Refused. 9-Not Applicable-not attempted and the patient did not perform the activity before the current illness, exacerbation or injury. 10-Not Attempted due to Environmental Limitations-(lack of equipment, weather restraints, etc.). 88-Not Attempted due to Medical Conditions or Safety Concerns. Roll Left to Right (QC): 3 Sit to Lying (QC): 3 Sit to Stand (QC): 2 Chair/Ytg-af-Numgc Xfer(QC): 2 Car Transfer (QC): 88 Gait Training Does the Patient Walk?: Yes Walk 10 feet (QC): 4 Walk 50 ft with 2 Turns(QC): 4 Walk 150 ft (QC): 88 Walking 10ft/uneven surface-QC: 4 Gait Assistive Device: Walker Vinh Wheelchair Training Does the Pt Use a Wheelchair?: Yes Distance: 50', 30' Wheel 50 ft with 2 turns (QC): 3 Wheel 150 ft (QC): 88 Stair Training #of Steps: 1 1 Step (curb) (QC): 4 4 Steps (QC): 88 12 Steps (QC): 88 Balance Picking up an Object (QC): 4 (using carpenter inspector) ADL-Treatment Eating (QC): 4 Oral Hygiene (QC): 3 Shower/Bathe Self (QC): 7 Upper Body Dressing (QC): 1 Lower Body Dressing (QC): 1 On/Off Footwear (QC): 1 Toileting Hygiene (QC): 2 (per clinical judgment) Assessment/Plan Assessment and Plan Assess & Plan/Chief Complaint Assessment: Fall Proximal right humerus fracture Right patellar fracture Atrial fibrillation presumed not an anticoagulation candidate due to fall risk? Consulting cardiology CAD previous triple bypass Hypertension Hyperlipidemia Hypothyroidism Plan: Pain control PT and OT Assistive devices Cardiology consult Orthopedic consult 10/25/2021: Supportive care Pain control with oxycodone (1) Fracture of head of humerus (2) Patella fracture (3) Fall on same level ELLIS KING DO Oct 25, 2021 06:58
--- NOTE | 2021-10-25 06:58 | Individualized Plan of Care ---
Individualized Plan of Care Rehab Nursing IPOC Order Admission Date Oct 24, 2021 at 13:15 Current Orders Orders Admission Order(Inpt,Obs,Sdc) (10/24/21 11:29) Vital Signs: Per Unit Policy ( 08,16,00 (10/24/21 11:29) Og Servin , (10/24/21 11:29) Sequential Compression Device (10/24/21 11:29) Professor Of Historical Theology-Inpt Rehab Con (10/24/21 11:29) Rehab Nursing Orders-Ipoc (10/24/21 11:29) Physical Therapy Rehab Orders (10/24/21 11:29) Occupational Therapy Rehab Ord (10/24/21 11:29) Speech Therapy Rehab Orders (10/24/21:) Cbc With Automated Diff (10/25/21 06:00) Comprehensive Metabolic Panel (10/25/21 06:00) Precautions (Aru) (10/24/21 11:29) Weekly Weight WEEK (10/24/21:29) Rehab-Intensity Of Therapy (10/24/21 11:29) Initiate Admission Nursing Pro .admission (10/24/21 11:29) Alprazolam Tablet (Xanax Tablet) (10/24/21 11:30) Calcium Carbonate Chew Tablet (Antacid C (10/24/21 11:30) Diphenhydramine Tablet (Benadryl Tablet) (10/24/21 11:30) Docusate Sodium Capsule (Colace Capsule) (10/24/21 21:00) Docusate Sodium Capsule (Colace Capsule) (10/24/21 11:30) Bisacodyl Suppository (Dulcolax Supposit (10/24/21 11:30) Lactulose Oral Solution (Enulose Oral So (10/24/21 11:30) Na Phos/Na Biphos Enema (Fleet Enema Ho (10/24/21 11:30) Guaifenesin/Codeine Syrup (Robitussin Ac (10/24/21 11:30) Loperamide Tablet (Imodium Tablet) (10/24/21 11:30) Melatonin Tablet (Melatonin Tablet) (10/24/21 11:30) Polyethylene Glycol Powder Pkt (Miralax (10/24/21 21:00) Ondansetron Injection (Zofran Injectio (10/24/21 11:30) Ondansetron Oral Dissolve Tab (Zofran (10/24/21 11:30) Senna S Tablet (Senokot S Tablet) (10/24/21 21:00) Acetaminophen Tablet/Caplet (Tylenol T (10/24/21 11:30) Code/Resuscitation (10/24/21 11:29) Initiate Admission Nursing Pro .admission (10/24/21 11:29) Admission Arrival Bed Request (10/24/21 13:22) Patient Visit (10/24/21 ) Pt Eval Moderate Complexity (10/24/21 ) Gait Training, Ea 15 Min (10/24/21 ) Functional Activities, Ea 15 (10/24/21 ) Patient Visit (10/24/21 ) Pt Eval Moderate Complexity (10/24/21 ) Self Care/Home Mgmt/Adl 15 Min (10/24/21 ) Functional Activities, Ea 15 (10/24/21 ) Amlodipine Tablet (Norvasc Tablet) (10/25/21 09:00) Cyanocobalamin Injection (Vitamin B-12 I (10/24/21 16:00) Ferrous Sulfate Oral Liquid (Feosol Oral (10/25/21 09:00) Finasteride Tablet (Proscar Tablet) (10/24/21 21:00) Isosorbide Mononitrate Tablet (Imdur Tab (10/24/21 21:00) Losartan Tablet (Cozaar Tablet) (10/25/21 09:00) Prasugrel Tablet (Effient Tablet) (10/25/21 09:00) Vit A/C/E/Zinc/Co (Non-Form) (Preservisi (10/24/21 21:00) (Nf) Bupropion Hcl (Bupropion Xl) (10/25/21 09:00) (Nf) Levothyroxine Sodium (10/25/21 09:00) (Nf) Omeprazole (10/24/21 21:00) Amiodarone Tablet (Cordarone Tablet) (10/25/21 09:00) Aspirin Enteric Coated Tablet (Ecotrin T (10/26/21 09:00) Aspirin Enteric Coated Tablet (Ecotrin T (10/25/21 09:00) Pantoprazole Tablet (Protonix Tablet) (10/24/21 21:00) Levothyroxine Tablet (Synthroid Tablet) (10/25/21 06:30) Levothyroxine Tablet (Synthroid Tablet) (10/25/21 06:30) Bupropion Sr 12 Hr Tablet (Wellbutrin Sr (10/25/21 09:00) General/Regular (10/24/21 Dinner) Hydrocodone/Apap 10/325 Tablet (Lortab 1 (10/24/21 20:00) Oxycodone Immediate Rel Tablet (Oxyir Ta (10/24/21 20:00) Consult Orthopedic Surgery (10/24/21 20:26) Oxycodone Immediate Rel Tablet (Oxyir Ta (10/24/21:22) Consult Cardiology (10/25/21 06:46) Patient Visit (10/25/21 ) Speech Sound Lang Comp (10/25/21 ) Treat. Speech/Lang/Voice (10/25/21 ) Patient Visit (10/25/21 ) Gait Training, Ea 15 Min (10/25/21 ) Exercise Therap, Ea 15 Min (10/25/21 ) Functional Activities, Ea 15 (10/25/21 ) Ensure Hi Pro Chocolate (10/25/21 14:20) Amiodarone Tablet (Cordarone Tablet) (10/26/21 09:00) Ekg Tracing (10/26/21 06:00) Lipid Panel (10/25/21 18:00) Rehab Nursing Orders: Ongoing Assess. of Cognitive Status, Ongoing Assess. of Function Status, Bladder Management, Bladder Scan, Bladder Training, Bowel Management, Bowel Training, Disease Management & Educaiton, DVT Prophylaxis, Fall Prevention, Fluid/Electrolyte/Nutrition Mgmt, Infection Prevention, Medication Management & Education, Management of Risks & Complications, Management of Skin Intergrity, Nutrition Management, Pain Management, Pa tient/Family Support, Safety Management Intensity of Therapy to be met Patient to be seen: Min.3h per day/5 of 7d PT IPOC Problem List: Activity Tolerance, Functional Strength, Safety, Balance, Gait, Transfer, Bed Mobility, ROM, Other Treatment Plan: Continue Plan of Care Bed Mobility, Education, Functional Activity David, Functional Strength, Group Therapy, Gait, Safety, Therapeutic Exercise, Transfers Treatment Duration: November 14, 2021 Frequency: At least 5 of 7 days/Wk (IRF) Estimated Hrs Per Day: 1.5 hours per day OT IPOC Problems: Decreased Activ Tolerance, Decreased UE Strength, Impaired Funct Balance, Impaired I ADL's, Impaired Self-Care Skills, Restricted Funct UE ROM OT Treatment, Training and Edu: Yes Plan of Care: ADL Retraining, Functional Mobility, Group Exercise/Act as Ind, UE Funct Exercise/Act, W/C Management Training Treatment Duration: November 14, 2021 Frequency: At least 5 of 7 days/Wk (IRF) Estimated Hrs Per Day: 1.5 hours per day (60-90 min/day) ST IPOC Speech Therapy Treatment Plan: Discontinue ST Treatment Duration: Oct 25, 2021 Frequency: Modified Program (IRF) Estimated Hrs Per Day: Other Professor Of Historical Theology/Case Mgmt Professor Of Historical Theology/Case Managemen: Discharge Planning Dietitian/Field Scout Dietitian/Field Scout to monitor nutritional status and make changes and/or recommendations as needed and work with speech pathology on dietary upgrades as the occur. Physician IPOC Medical Issues being managed closely and that require the 24 hour availability of a physician: Recent fall with multiple fractures and high risk for recurrent falls with advanced age along with cardiac risk factors require close monitoring for any decompensation Medical Issues: Bowel/Bladder Function, DVT Prophylaxis, Falls Precautions, Fluid/Electrolyte/Nutrition Balance, Infection Protection, Pain Management Brief Synthesis of Preadmission Screen, Post-Admission Evaluation, and Therapy Evaluations: PT and OT will focus on regaining function with assistive devices in order to regain enough independence to return home to independent living Medical Prognosis: Good Anticipated Length of Stay: 5 days ELLIS KING DO Oct 25, 2021 06:58
[2021-10-25] MEDS: DOCUSATE SODIUM 100 MG (COLACE) CAP PO SCH ×2 (07:44→20:37)
[2021-10-25] MEDS: LOSARTAN 100 MG (COZAAR) TABLET PO SCH (07:44)
[2021-10-25] MEDS: SENNA W/DOCUSATE (SENOKOT S) TABLET PO SCH ×2 (07:44→20:43)
[2021-10-25] MEDS: buPROPion SR 150 MG (WELLBUTRIN SR) TAB PO SCH ×2 (07:44→20:37)
[2021-10-25] MEDS: amLODIPine 5 MG (NORVASC) TAB PO SCH (07:44)
[2021-10-25] MEDS: ISOSORBIDE MONONITRATE 60 MG (IMDUR) TAB PO SCH ×2 (07:45→20:37)
[2021-10-25] MEDS: ASPIRIN E.C. 81 MG (ECOTRIN) TAB PO SCH (07:45)
[2021-10-25] MEDS: FERROUS SULFATE ORAL LIQUID 44 MG/ML ML PO SCH (07:46)
[2021-10-25 08:00] VITALS: BP 121/58
[2021-10-25] MEDS: polyethylene glycoL POWDER 17 GM (MIRALAX) PACK PO SCH ×2 (08:06→20:43)
[2021-10-25] MEDS ORDERED: NON-FORMULARY MEDICATION 1 EA EA (Bupropion HCl (Bupropion Xl) 300 MG) PO SCH (09:00)
[2021-10-25] MEDS ORDERED: NON-FORMULARY MEDICATION 1 EA EA (Levothyroxine Sodium 175 MCG) PO SCH (09:00)
[2021-10-25] MEDS ORDERED: AMIODARONE 200 MG (CORDARONE) TAB PO SCH (09:00)
--- NOTE | 2021-10-25 09:47 | Occupational Ther Daily Note ---
OT Current Status-Daily Note Subjective Pt reports still having pain in RUE and L knee but does not give numerical value. Appears to have better pain tolerance this date during treatment. Appearance Pt left sitting in w/c per requests. All needs within reach at end of session. Mental Status/Objective Patient Orientation: Person, Place, Situation Attachments: Oxygen ADL-Treatment Therapy Code Descriptions/Definitions Functional [place] Measure: 0=Not Assessed/NA 4=Minimal Assistance 1=Total Assistance 5=Supervision or Setup 2=Maximal Assistance 6=Modified [place] 3=Moderate Assistance 7=Complete IndependenceSCALE: Activities may be completed with or without assistive devices. 5-Hrnviarxst-ymutfqr completes the activity by him/herself with no assistance from a helper. 5-Set-up or Clean-up Assistance-helper sets up or cleans up; patient completes activity. [place] assists only prior to or following the activity. 4-Supervision or Touching Assistance-helper provides verbal cues and/or touching/steadying and/or contact guard assistance as patient completes activity. Assistance may be provided throughout the activity or intermittently. 3-Partial/Moderate Assistance-helper does LESS THAN HALF the effort. [place] lifts, holds or supports trunk or limbs, but provides less than half the effort. 2-Substantial/Maximal Assistance-helper does MORE THAN HALF the effort. [place] lifts or holds trunk or limbs and provides more than half the effort. 9-Qcuztllrv-dvivoh does ALL the effort. Patient does none of the effort to complete the activity. Or, the assistance of 2 or more helpers is required for the patient to complete the activity. If activity was not attempted, code reason: 7-Patient Refused. 9-Not Applicable-not attempted and the patient did not perform the activity before the current illness, exacerbation or injury. 10-Not Attempted due to Environmental Limitations-(lack of equipment, weather restraints, etc.). 88-Not Attempted due to Medical Conditions or Safety Concerns. Oral Hygiene (QC): 4 Shower/Bathe Self (QC): 3 Upper Body Dressing (QC): 2 Lower Body Dressing (QC): 2 Toileting Hygiene (QC): 3 Toilet Transfer (QC): 3 ([id number]) Bathing/dressing tasks performed seated EOB. When washing upper body, pt demonstrates difficulty problem solving through task. OT educated/demon strated compensatory technique to wash L axilla however pt unable to flex elbow fully enough secondary to old fracture. OT provided pt with LHS which he was then able to reach/wash post instruction. He was able to reach across midline with Left to wash under R axilla. He stood to wash estela area/buttocks with min a for balance. Intermittent single UE support on yany walker. Pt sat to wash LE's. Pt only able to reach upper thighs and slightly below R knee secondary to pain with bending while keeping LLE immobilized in extension. OT educates pt on use of LHS to wash R foot. No physical assistance post cues. LLE not addressed secondary to immobolizer. Following demonstration, mod a needed to thread RUE into sleeve. Pt able to complete 3 remaining steps (over head, LUE and pull down) with extra time and verbal/tactile cues. Mod-max a to doff/rhea sling. OT introduced and instructed pt on use of vp product. Mod verbal cues and physical assistance needed when threading LE's through shorts. Min a for balance as pt pulled clothing up over hips. Minimal assistance to pull up in the back. Other Treatment 2nd session: ([id number]) Pt participated in LUE exercises with 2# dumbbell. Focus on promoting increased strength and endurance for functional tasks/mobility. L shoulder fatigues easily, 1/2 reps modified to 90 degrees in order to maintain proper form. Elbow flexion performed within available range. 12x2 all planes. Education OT Patient Education: Correct positioning, Energy conservation, Exercise program, Modified ADL techniques, Progress toward Goal/Update tx plan, Purpose of tx/functional activities, Reviewed precautions, Rehab process, Safety issues, Transfer techniques, Use of adapted equipment, W/C management Teaching Recipient: Patient Teaching Methods: Demonstration, Discussion Response to Teaching: Verbalize Understanding, Return Demonstration, Reinforcement Needed OT Short Term Goals Short Term Goals Time Frame: Nov 04, 2021 Eatin Oral hygiene: 4 Toileting hygiene: 3 Shower/bathe self: 3 Upper body dressin Lower body dressin Putting on/taking off footwear: 2 OT Anchor Tack Puller Goals Anchor Tack Puller Goals Time Frame: November 14, 2021 Eating (QC): 5 Oral Hygiene (QC): 5 Toileting Hygiene (QC): 6 Shower/Bathe Self (QC): 5 Upper Body Dressing (QC): 4 Lower Body Dressing (QC): 4 On/Off Footwear (QC): 4 1=Demonstrate adherence to instructed precautions during ADL tasks. 2=Patient will verbalize/demonstrate understanding of assistive devices/modifications for ADL. 3=Patient will improve strength/tolerance for activity to enable patient to perform ADL's. OT Education/Plan Problem List/Assessment Assessment: Decreased Activ Tolerance, Decreased UE Strength, Impaired Funct Balance, Impaired I ADL's, Impaired Self-Care Skills, Restricted Funct UE ROM Discharge Recommendations Plan/Recommendations: Continue POC Equpiment Recommendations-D/C: Toilet Riser with Rails, Manager Protein Treatment Plan/Plan of Care Treatment,Training & Education: Yes Patient would benefit from OT for education, treatment and training to promote independence in ADL's, mobility, safety and/or upper extremity function for ADL's. Plan of Care: ADL Retraining, Functional Mobility, Group Exercise/Act as Ind, Orthotic Fitting/Training, UE Funct Exercise/Act, W/C Management Training Treatment Duration: November 14, 2021 Frequency: At least 5 of 7 days/Wk (IRF) Estimated Hrs Per Day: 1.5 hours per day (60-90 min/day) Agreement: Yes Rehab Potential: Fair Time/GCodes Start Time: 08:45 (1000) Stop Time: 09:30 (1030) Total Time Billed (hr/min): 75 Billed Treatment Time 1 visit ADL x3 (45 min) 2nd visit EX x2 (30 min) Sydnie Shine OT Oct 25, 2021 09:47
[2021-10-25] MEDS: PRASUGREL 10 MG (EFFIENT) TABLET PO SCH (10:16)
--- NOTE | 2021-10-25 11:18 | ST Cognitive Linguistic Eval ---
Speech Evaluation-General Medical Diagnosis fall/right humeral fracture/left patellar fracture Onset Date: Oct 23, 2021 Therapy Diagnosis Therapy Diagnosis: Mild Neurocognitive Impairment Precautions Precautions: Fall Precautions/Isolations: Fall Prevention, Standard Precautions Referral Referring Physician: Dr. Tamela Angeles Reason for Referral: Evaluation/Treatment Medical History Pertinent Medical History: Atrial Fib, CABG, CAD, HTN Current History The patient is an 86 year-old male with a past medical history of atrial fibrillation, CAD, and HTN, who presented to [facility] following a fall which resulted in a right humeral fracture and left patellar fracture. Reviewed History: Yes Social History Current Living Status: Spouse Speech PLF-Current Status Prior Level of Function The patient denied prior or recent difficulties or concerns with his speech, language, or cognition. Subjective The patient was seated upright in his wheelchair upon entrance to his room by the clinician. The patient greeted the clinician appropriately and was agreeable to participation in the cognitive linguistic assessment. At presentation, the patient reported he wished to keep the door open and keep the temperature in his room lower. The clinician lowered the room temperature and placed a sign on the door at the patient's request. The OT arrived to receive the patient's SpO2% which was 87%, therefore, supplemental oxygen via nasal cannula was placed by the OT (the patient was wearing supplemental O2 prior to OT therapy). The patient reported comfort at this time and denied shortness of air. Language Eval: Auditory Comprehends Simple Yes/No Ques: Functional Indent/Objects Multiple [place]: Functional Ident/Pics in Multiple [place]: Functional Follows 1-Step Commands: Functional Follows Complex Directions: Functional Follows General Conversations: Functional Language Eval: Verbal Language Completes Spontaneous Greeting: Functional Produces Auto, Serial Info: Functional Imitates Simple Words/Phrases: Functional Word Finding: Functional Requests Basic Needs: Functional States Basic Personal Info: Functional Expresses Complex Ideas: Functional Language Evaluation: Reading Follows Simple Written Direct: Functional Cognitive Patient Orientation The patient was independently oriented to self, location, month, day of week, date and year. Objective Cognitive Domain Attention: Mild Memory: Moderate Problem Solving: Mild Executive Functions: Mild Composite Severity Rating: Mild The patient was unable to complete the clock drawing task due to his upper ex tremity injury. Objective Formal/Standardized Tests [facility] Mental Status Exam (UMS) Results The patient received a result of +14/ (53%) correlating to a mild neurocognitive impairment. The patient's results were from 26 as he was unable to complete clock drawing due to his upper extremity injury. Oral Motor/Speech Production Dysarthria or apraxia of speech were not demonstrated. The patient was 100% intelligible in known and unknown contexts. Impression The patient demonstrated a mild neurocognitive impairment in the areas of memory, attention, and problem solving. Per patient, he is performing at his baseline level. The importance of speech pathology therapy was extensively discussed and the services the clinician could offer the patient during his rehabilitation process were addressed. Per patient, "I don't want to do any of this. I want to go home." The clinician provided supportive listening and encouragement. Regardless of rationale discussion, the patient continue to state he did not want to receive cognitive therapy at this time. The patient was encouraged to contact his RN or the clinician directly if he wishes to pursue services throughout his stay. Speech Patient Assess Expression of Ideas/Wants: Expression (4) Understanding Verbal Content: Understands (4) Brief Interview-Mental Status: Yes Repetition of Three Words: Three (3) Temporal Orientation: Year: Correct (3) Temporal Orientation: Month: Accurate within 5 days(2) Temporal Orientation: Day: Correct (1) Recall : Wear to say "Sock": Yes, no cue required (2) Recall : Color: Yes, after cueing (1) Recall : Bed: Yes,after cueing (1) Memory/Recall Ability: Current season, That he or she is in a hsp/hsp unit Speech-Plan Treatment Plan Speech Therapy Treatment Plan: Discontinue ST Treatment Duration: Oct 25, 2021 Frequency: 1 time per week Estimated Hrs Per Day: .5 hour per day Rehab Potential: Fair Pt/Family Agrees to Plan: Yes Safety Risks/Education Teaching Recipient: Patient Teaching Methods: Discussion Response to Teaching: Reinforcement Needed Education Topics Provided: Results of SLUMS, Positive Benefits of Speech Pathology Therapy Time Speech Therapy Time In: 09:30 Speech Therapy Time Out: 10:00 Total Billed Time: 30 Billed Treatment Time 1, JUDI CERVANTES [facility] ST Oct 25, 2021 11:18
--- NOTE | 2021-10-25 11:40 | Physical Therapy Daily Note ---
PT Daily Note-Current Subjective Patient reports still feeling a little nauseas, but is agreeable to treatment today. Pain Location: No Pain Reported Appearance L knee swelling Mental Status Patient Orientation: Person, Place, Time, Situation Attachments: Oxygen left knee immobilizer Transfers SCALE: Activities may be completed with or without assistive devices. 2-Jkakpprsee-ehwpzah completes the activity by him/herself with no assistance from a helper. 5-Set-up or Clean-up Assistance-helper sets up or cleans up; patient completes activity. [place] assists only prior to or following the activity. 4-Supervision or Touching Assistance-helper provides verbal cues and/or touching/steadying and/or contact guard assistance as patient completes activity. Assistance may be provided throughout the activity or intermittently. 3-Partial/Moderate Assistance-helper does LESS THAN HALF the effort. [place] lifts, holds or supports trunk or limbs, but provides less than half the effort. 2-Substantial/Maximal Assistance-helper does MORE THAN HALF the effort. [place] lifts or holds trunk or limbs and provides more than half the effort. 7-Unyttrhaw-waifft does ALL the effort. Patient does none of the effort to complete the activity. Or, the assistance of 2 or more helpers is required for the patient to complete the activity. If activity was not attempted, code reason: 7-Patient Refused. 9-Not Applicable-not attempted and the patient did not perform the activity before the current illness, exacerbation or injury. 10-Not Attempted due to Environmental Limitations-(lack of equipment, weather restraints, etc.). 88-Not Attempted due to Medical Conditions or Safety Concerns. Sit to Lying (QC): 4 Lying to Sitting/Side of Bed(Q: 4 Sit to Stand (QC): 3 Weight Bearing Right Lower Extremity: Right Full Weight Bearing Left Lower Extremity: Left Weight Bearing/Tolerated RUE in sling and NWB, LLE in knee immobilizer Gait Training Does the Patient Walk?: Yes Distance: 40', 10', 50', 100', 20' Walk 10 feet (QC): 4 Walk 50 ft with 2 Turns(QC): 4 Gait Assistive Device: Walker Vinh Knee immobilizer and Hemiwalker on L side. Exercises Supine Ex: Bridging, Straight leg raise Supine Reps: 24 Seated Therapy Exercises: Long arc quads Seated Reps: [address] Ex=Flex, Abd, Ext, Step-ups Standing Reps: 24 bridging using red ball under knee (1.5ft diameter). LAQ used 3lbs at ankle. Step ups on 4inch block with R leg. Treatments LE strengthening, transfers, ambulation Assessment Current Status: Good Progress, Fair Progress Patient presents as tired and nauseas but still is motivated for treatment. Patient was able to ambulate for longer distances that yesterday, before needing a recovery period. Patient still has a hard time going from sit to stand and requires min assist. Patient demonstrated adequate strength with LE, but fatigued at the end of each set. Patient was left in chair with call light, tray, and all needs met. PT Short Term Goals Short Term Goals Time Frame: Oct 31, 2021 Roll Left & Right: 4 Sit to lyin Lying to sitting on side of be: 4 (SBA) Sit to stand: 3 Chair/uzy-de-aiudv transfer: 3 Toilet transfer: 3 Car transfer: 3 Walk 10 feet: 4 Walk 50 feet with two turns: 4 Walk 150 feet: 4 PT Equipment Processer Storage Goals Equipment Processer Storage Goals PT Jail Goals Time Frame: November 14, 2021 Roll Left & Right (QC): 6 Sit to Lying (QC): 6 Lying-Sitting on Side/Bed(QC): 6 Sit to Stand (QC): 4 (SBA) Chair/Xva-mh-Zpgjt Xfer(QC): 4 (SBA) Toilet Transfer (QC): 4 (SBA) Car Transfer (QC): 88 Does the Patient Walk: Yes Walk 10 feet (QC): 6 Walk 50ft with 2 Turns (QC): 6 Walk 150 ft (QC): 6 Walking 10ft on Uneven Surface: 6 1 Step (curb) (QC): 4 4 Steps (QC): 4 12 Steps (QC): 88 Picking up an Object (QC): 6 Wheel 50 feet with 2 turns (QC: 6 Type: Manual Wheel 150 feet: 6 Type: Manual PT Plan Problem List Problem List: Activity Tolerance, Functional Strength, Safety, Balance, Gait, Transfer, Bed Mobility, ROM Treatment/Plan Treatment Plan: Continue Plan of Care Treatment Plan: Bed Mobility, Education, Functional Activity David, Functional Strength, Group Therapy, Gait, Safety, Therapeutic Exercise, Transfers Treatment Duration: November 14, 2021 Frequency: At least 5 of 7 days/Wk (IRF) Estimated Hrs Per Day: 1.5 hours per day Patient and/or Family Agrees t: Yes Safety Risks/Education Patient Education: Gait Training, Transfer Techniques, Reviewed Precautions, Correct Positioning, Disease Process, Safety Issues Teaching Recipient: Patient, Family Teaching Methods: Demonstration, Discussion Response to Teaching: Verbalize Understanding, Return Demonstration Time/GCodes Time In: 1030 Time Out: 1145 Total Billed Treatment Time: 75 Total Billed Treatment 1 Visit GT 25min EX 35 min FA 15min PHAM KERN PT Oct 25, 2021 11:40
--- NOTE | 2021-10-25 18:04 | Consultation-Cardiology ---
HPI-Cardiology Cardiology Consultation: Date of Consultation 10/25/21 Date of Admission 10/24/21 Attending Physician Tamela Angeles DO Admitting Physician Connor Lockwood DO Consulting Physician BERRY LAGUNA JR, MD HPI: Time Seen by a Provider: 18:01 Chief Complaint: Reason for consultation: Coronary artery disease and atrial fibrillation. I had the pleasure of seeing Luis in the inpatient rehab unit at [facility] in [place], [place] today. He has a history of coronary artery disease and paroxysmal atrial fibrillation. He normally follows with Dr. Rueda at [facility] in [place]. He had actually just seen Dr. Rueda recently who ordered some testing on his legs due to some exertional leg discomfort he has been having. Earlier in the week he tripped on a garden hose and fell in his yard. He fractured the patella and his right shoulder and was admitted to the hospital. Nonoperative treatment was recommended by orthopedics. He was subsequently transferred to the inpatient rehabilitation unit for physical therapy. He denies chest discomfort, dyspnea, paroxysmal nocturnal dyspnea, orthopnea, palpitations, lightheadedness, syncope, or lower extremity edema. Certain portions of this document may have been dictated utilizing voice recognition technology. Inherent to this technology, typographical and gr ammatical errors may exist. As much as I am diligent to identify and correct these mistakes, some errors may remain in the document. Review of Systems-Cardiology Review of Systems Other comments Review of 10 organ systems is as per the history of present illness, otherwise negative. All Other Systems Reviewed Negative Unless Noted: Yes ATG-Khchgv-Qewxxe Hx Patient Social History Marrital Status: single Employed/Student: retired Smoking Status: Former Smoker Former smoker/When Quit: Jan 16, 1966 Have you traveled recently?: No Alcohol Use?: No Pt feels they are or have been: No Immunizations Up To Date Date of Pneumonia Vaccine: Jan 16, 2014 Date of Influenza Vaccine: May 02, 2016 Past Medical History PMH As described under Assessment. Family Medical History Family Medical History: He did not report a family history of premature coronary disease. Allergies and Home Medications Allergies Coded Allergies: Sulfa (Sulfonamide Antibiotics) (Unverified Allergy, Unknown, 03/20/15) quinine (Unverified Allergy, Unknown, 01/16/15) Patient Home Medication List Home Medication List Reviewed: Yes Amiodarone HCl (Amiodarone HCl) 200 Mg Tablet, 200 MG PO MO,TU,WE,FR,SA, (Reported) Entered as Reported by: ABEL HUGHES on 12/03/15 0936 Last Action: Continued Amlodipine Besylate (Amlodipine Besylate) 5 Mg Tablet, 5 MG PO DAILY, (Reported) Entered as Reported by: GUNNER RUTLEDGE on 10/24/21 0550 Last Action: Continued Aspirin (Aspirin EC) 81 Mg Tablet.dr, 81 MG PO JACKSON,TU,TH,SA, (Reported) Entered as Reported by: TARA WILLARD on 10/24/21 135 Last Action: Continued Aspirin (Aspirin EC) 81 Mg Tablet.dr, 162 MG PO RON,MARIO,FR, (Reported) Entered as Reported by: TARA WILLARD on 10/24/21 135 Last Action: Continued Bupropion HCl (Bupropion Xl) 300 Mg Tab.er.24h, 300 MG PO DAILY, (Reported) Entered as Reported by: GUNNER RUTLEDGE on 10/24/21 0544 Last Action: Converted Cyanocobalamin (Cyanocobalamin Injection) 1,000 Mcg/Ml Inj, 1,000 MCG IJ MONTHLY, (Reported) Entered as Reported by: ONELIA JONES on 07/01/16 124 Last Action: Continued Ferrous Sulfate (Ferrous Sulfate) 220 Mg/5 Ml Elixir, 15 ML PO DAILY, (Reported) Entered as Reported by: TARA WILLARD on 10/24/21 1438 Last Action: Continued Finasteride (Finasteride) 5 Mg Tablet, 5 MG PO HS, (Reported) Entered as Reported by: ONELIA JONES on 07/01/16 124 Last Action: Continued Isosorbide Mononitrate (Isosorbide Mononitrate ER) 60 Mg Tab, 60 MG PO BID, (Reported) Entered as Reported by: GUNNER RUTLEDGE on 10/24/21 0549 Last Action: Continued Levothyroxine Sodium (Levothyroxine Sodium) 175 Mcg Tablet, 175 MCG PO DAILY, (Reported) Entered as Reported by: GUNNER RUTLEDGE on 10/24/21 0542 Last Action: Converted Losartan Potassium (Losartan Potassium) 100 Mg Tablet, 100 MG PO DAILY, (Reported) Entered as Reported by: GUNNER RUTLEDGE on 10/24/21550 Last Action: Continued Omeprazole (Omeprazole) 40 Mg Capsule.dr, 40 MG PO HS, (Reported) Entered as Reported by: GUNNER RUTLEDGE on 10/24/21546 Last Action: Converted Prasugrel HCl (Prasugrel HCl) 10 Mg Tablet, 10 MG PO DAILY, (Reported) Entered as Reported by: GUNNER RUTLEDGE on 10/24/21543 Last Action: Continued Vit A/C/E/Zinc/Co (Preservision Areds Softgel) 1 Cap Capsule, 1 CAP PO BID, (Reported) Entered as Reported by: GUNNER RUTLEDGE on 10/24/21553 Last Action: Continued Discontinued Medications Amlodipine Besylate (Amlodipine Besylate) 10 Mg Tablet, 10 MG PO DAILY, (Reported) Discontinued Reason: No Longer Taking Entered as Reported by: ONELIA JONES on 07/01/16 1245 Apixaban (Eliquis) 2.5 Mg Tablet, 2.5 MG PO BID, (Reported) Discontinued Reason: No Longer Taking Entered as Reported by: ONELIA JONES on 07/01/16 1245 Last Action: Discontinued Atorvastatin Calcium (Lipitor Tablet) 10 Mg Tablet, 10 MG PO HS, (Reported) Discontinued Reason: No Longer Taking Entered as Reported by: DELIA AHUJA on 01/16/15747 Last Action: Discontinued Ferrous Sulfate (Ferrous Sulfate) 325 Mg Tablet, 325 MG PO HS, (Reported) Discontinued Reason: Prescription changed Entered as Reported by: ABEL HUGHES on 12/03/15 0936 Isosorbide Mononitrate (Isosorbide Mononitrate Er) 60 Mg Tab.er.24h, 60 MG PO BID, (Reported) Discontinued Reason: Duplicate Order Entered as Reported by: DELIA AHUJA on 01/16/15747 Levothyroxine Sodium (Levothyroxine 125 Mcg Tab) 125 Mcg Tablet, 150 MCG PO DAILY, (Reported) Discontinued Reason: No Longer Taking Entered as Reported by: DELIA AHUJA on 01/16/15747 Lorazepam (Lorazepam) 0.5 Mg Tablet, 0.5 MG PO BID PRN for ANXIETY, (Reported) Discontinued Reason: No Longer Taking Entered as Reported by: ABEL HUGHES on 12/03/15 0936 Prasugrel HCl (Effient) 10 Mg Tablet, 10 MG PO DAILY, (Reported) Discontinued Reason: Duplicate Order Entered as Reported by: ONELIA JONES on 07/01/16 1245 Exam Vital Signs Vital Signs Date Time Temp Pulse Resp B/P (MAP) Pulse Ox O2 Delivery O2 Flow Rate FiO2 10/25/21 09:06 Nasal Cannula 2.00 10/25/21 08:00 36.5 70 14 121/58 (79) 94 Physical Exam General: Alert. No acute distress. Well nourished and appears stated age. Eye: Extraocular movements are intact. Conjunctivae are clear. There are no xanthelasma. HENT: Normocephalic. Atraumatic. Carotid pulsations 2/2 without bruits. Neck: Jugular venous pressure does not appear elevated. No thyromegaly appreciated. Respiratory: Lungs are clear to auscultation. Respirations are non-labored. Breath sounds are equal. Symmetrical chest wall expansion. Cardiovascular: Normal rate. Regular rhythm. 1/6 systolic ejection murmur. No gallop. Point of maximal impulse is not appear displaced. Good pulses equal in all extremities. No edema. Gastrointestinal: Soft. Normal bowel sounds. Skin: Skin turgor is normal. There is no pallor. Musculoskeletal: No kyphosis or scoliosis appreciated. Right arm and shoulder are in a sling. Neurologic: Alert and oriented to person, place, time. Cranial nerves 3-12 appear grossly intact. The patient has good motor tone strength in the upper and lower extremities bilaterally. Psychiatric: Cooperative. Appropriate mood & affect. Labs Laboratory Tests Test 10/25/21 05:54 Range/Units White Blood Count 8.7 4.3-11.0 10^3/uL Red Blood Count 3.50 L 4.30-5.52 10^6/uL Hemoglobin 9.8 L 13.3-17.7 g/dL Hematocrit 31 L 40-54 % Mean Corpuscular Volume 89 80-99 fL Mean Corpuscular Hemoglobin 28 25-34 pg Mean Corpuscular Hemoglobin Concent 32 32-36 g/dL Red Cell Distribution Width 16.7 H 10.0-14.5 % Platelet Count 88 L 130-400 10^3/uL Mean Platelet Volume 12.6 H 9.0-12.2 fL Immature Granulocyte % (Auto) 1 % Neutrophils (%) (Auto) 71 42-75 % Lymphocytes (%) (Auto) 10 L 12-44 % Monocytes (%) (Auto) 13 H 0-12 % Eosinophils (%) (Auto) 5 0-10 % Basophils (%) (Auto) 1 0-10 % Neutrophils # (Auto) 6.2 1.8-7.8 10^3/uL Lymphocytes # (Auto) 0.9 L 1.0-4.0 10^3/uL Monocytes # (Auto) 1.1 H 0.0-1.0 10^3/uL Eosinophils # (Auto) 0.4 H 0.0-0.3 10^3/uL Basophils # (Auto) 0.0 0.0-0.1 10^3/uL Immature Granulocyte # (Auto) 0.0 0.0-0.1 10^3/uL Percent Immature Platelet Fraction 12.5 H 0.0-7.6 % Sodium Level 138 135-145 MMOL/L Potassium Level 4.2 3.6-5.0 MMOL/L Chloride Level 102 98-107 MMOL/L Carbon Dioxide Level 24 21-32 MMOL/L Anion Gap 12 5-14 MMOL/L Blood Urea Nitrogen 13 7-18 MG/DL Creatinine 0.98 0.60-1.30 MG/DL Estimat Glomerular Filtration Rate 76 BUN/Creatinine Ratio 13 Glucose Level 124 H 70-105 MG/DL Calcium Level 8.6 8.5-10.1 MG/DL Corrected Calcium 8.9 8.5-10.1 MG/DL Total Bilirubin 0.4 0.1-1.0 MG/DL Aspartate Amino Transf (AST/SGOT) 18 5-34 U/L Alanine Aminotransferase (ALT/SGPT) 21 0-55 U/L Alkaline Phosphatase 79 40-136 U/L Total Protein 5.7 L 6.4-8.2 GM/DL Albumin 3.6 3.2-4.5 GM/DL Smear Scan YES Diagnosis/Problems Diagnosis/Problems (1) Coronary artery disease without angina pectoris Assessment & Plan: He is not having any angina. He is on aspirin, prasugrel and long-acting nitrates. He states that he had a stent well over 1 year ago. I suggested that he might want to speak with his regular billet checker about stopping prasugrel sometime in the future. Ongoing use of prasugrel could put him at increased risk of hemorrhagic side effects. We do not typically use prasugrel for prolonged dual antiplatelet therapy. (2) Paroxysmal atrial fibrillation Assessment & Plan: He believes he has been and sinus rhythm on amiodarone. He has been on this for a number of years. It was actually started by Dr. Solomon many years ago. I would suggest that we decrease the dose to 100 mg daily to help reduce the risk of long-term, irreversible toxic side effects. I have ordered an electrocardiogram for the morning. For unclear reasons, he is not on a DOAC. (3) Primary hypertension Assessment & Plan: Blood pressure appears reasonably controlled with losartan and amlodipine. (4) Mixed hyperlipidemia Assessment & Plan: He has an apparent history of hyperlipidemia but is not on a statin medication. I have added a lipid panel to previous blood sample. BERRY LAGUNA JR, MD Oct 25, 2021 18:04
[2021-10-25 18:22] LABS: TRIGLYCERIDES 96 MG/DL (<150); VLDL CHOLESTEROL 19 MG/DL (5-40)
[2021-10-25 18:27] LABS: CHOLESTEROL 122 MG/DL (< 200)
[2021-10-25 18:28] LABS: HDL CHOLESTEROL 46 MG/DL (40-60)
[2021-10-25 20:00] VITALS: BP 133/62
[2021-10-25] MEDS: PANTOPRAZOLE 40 MG (PROTONIX) TAB PO SCH (20:37)
[2021-10-25] MEDS: FINASTERIDE (PROSCAR) 5 MG TAB PO SCH (20:38)
--- NOTE | 2021-10-26 06:16 | PM&R Progress Note ---
Subjective HPI/CC On Admission Date Seen by Provider: Oct 26, 2021 Time Seen by Provider: 11:30 Subjective/Events-last exam 10/26/21: Patient feeling a lot better Working on balance Pain is controlled on oxycodone Supportive care will continue Wants to go home soon This patient has a mobility limitation that significantly impairs his ability to participate in mobility-related activities of daily living that cannot be a dequately or safely addressed by a cane. This patient is able to safely use the vinh walker. The functional mobility deficit can be sufficiently resolved with use of a vinh walker. 10/25/2021: Patient doing really well Wants to go home soon Patient had 2 near falls during therapy indicating he really needs to stay Cardiology consulted Pain is pretty well controlled on oxycodone but hydrocodone makes him delirious Review of Systems General: Fatigue, Malaise Musculoskeletal: arm pain, leg pain Objective Exam Vital Signs Vital Signs Date Time Temp Pulse Resp B/P (MAP) Pulse Ox O2 Delivery O2 Flow Rate FiO2 10/26/21 20:35 Nasal Cannula 2.00 10/26/21 20:00 37.1 106 24 125/70 (88) 88 Capillary Refill : General Appearance: No Apparent Distress, WD/WN, Chronically ill HEENT: PERRL/EOMI, Normal ENT Inspection, Pharynx Normal Neck: Full Range of Motion, Normal Inspection, Non Tender, Supple, Carotid Bruit Respiratory: Chest Non Tender, Lungs Clear, Normal Breath Sounds, No Accessory Muscle Use, No Respiratory Distress Cardiovascular: Regular Rate, Rhythm, No Edema, No Gallop, No JVD, No Murmur, Normal Peripheral Pulses Gastrointestinal: Normal Bowel Sounds, No Organomegaly, No Pulsatile Mass, Non Tender, Soft Back: Normal Inspection, No CVA Tenderness, No Vertebral Tenderness Extremity: Normal Capillary Refill, Normal Inspection, Normal Range of Motion (Except for right arm and right leg), Non Tender, No Calf Tenderness, No Pedal Edema Neurologic/Psychiatric: Alert, Oriented x3, No Motor/Sensory Deficits, Normal Mood/Affect, form tamper operator II-XII Norm as Tested, Abnormal Gait, Motor Weakness (Generalized) Skin: Normal Color, Warm/Dry Lymphatic: No Adenopathy Results/Procedures Lab Patient resulted labs reviewed. FIM Transfers Therapy Code Descriptions/Definitions Functional [place] Measure: 0=Not Assessed/NA 4=Minimal Assistance 1=Total Assistance 5=Supervision or Setup 2=Maximal Assistance 6=Modified [place] 3=Moderate Assistance 7=Complete IndependenceSCALE: Activities may be completed with or without assistive devices. 5-Pfufwombio-nztrcdl completes the activity by him/herself with no assistance from a helper. 5-Set-up or Clean-up Assistance-helper sets up or cleans up; patient completes activity. [place] assists only prior to or following the activity. 4-Supervision or Touching Assistance-helper provides verbal cues and/or touching/steadying and/or contact guard assistance as patient completes activity. Assistance may be provided throughout the activity or intermittently. 3-Partial/Moderate Assistance-helper does LESS THAN HALF the effort. [place] lifts, holds or supports trunk or limbs, but provides less than half the effort. 2-Substantial/Maximal Assistance-helper does MORE THAN HALF the effort. [place] lifts or holds trunk or limbs and provides more than half the effort. 8-Zvgaulwye-wzjmys does ALL the effort. Patient does none of the effort to complete the activity. Or, the assistance of 2 or more helpers is required for the patient to complete the activity. If activity was not attempted, code reason: 7-Patient Refused. 9-Not Applicable-not attempted and the patient did not perform the activity before the current illness, exacerbation or injury. 10-Not Attempted due to Environmental Limitations-(lack of equipment, weather restraints, etc.). 88-Not Attempted due to Medical Conditions or Safety Concerns. Roll Left to Right (QC): 3 Sit to Lying (QC): 4 Sit to Stand (QC): 3 Chair/Mbm-vq-Eiccs Xfer(QC): 2 Car Transfer (QC): 88 Gait Training Does the Patient Walk?: Yes Distance: 40', 10', 50', 100', 20' Walk 10 feet (QC): 4 Walk 50 ft with 2 Turns(QC): 4 Walk 150 ft (QC): 88 Walking 10ft/uneven surface-QC: 4 Gait Assistive Device: Walker Vinh Wheelchair Training Does the Pt Use a Wheelchair?: Yes Distance: 50', 30' Wheel 50 ft with 2 turns (QC): 3 Wheel 150 ft (QC): 88 Stair Training #of Steps: 1 1 Step (curb) (QC): 4 4 Steps (QC): 88 12 Steps (QC): 88 Balance Picking up an Object (QC): 4 (using diesel engineer) ADL-Treatment Eating (QC): 4 Oral Hygiene (QC): 4 Shower/Bathe Self (QC): 3 Upper Body Dressing (QC): 2 Lower Body Dressing (QC): 2 On/Off Footwear (QC): 1 Toileting Hygiene (QC): 3 Toilet Transfer (QC): 3 Assessment/Plan Assessment and Plan Assess & Plan/Chief Complaint Assessment: Fall Proximal right humerus fracture Right patellar fracture Atrial fibrillation presumed not an anticoagulation candidate due to fall risk? Consulting cardiology CAD previous triple bypass Hypertension Hyperlipidemia Hypothyroidism Plan: Pain control PT and OT Assistive devices Cardiology consult Orthopedic consult 10/25/2021: Supportive care Pain control with oxycodone 10/26/2021: Supportive care Oxycodone Hemiwalker (1) Coronary artery disease without angina pectoris Assessment & Plan: He is not having any angina. He is on aspirin, prasugrel a nd long-acting nitrates. He states that he had a stent well over 1 year ago. I suggested that he might want to speak with his regular flying ii instructor about stopping prasugrel sometime in the future. Ongoing use of prasugrel could put him at increased risk of hemorrhagic side effects. We do not typically use prasugrel for prolonged dual antiplatelet therapy. (2) Paroxysmal atrial fibrillation Assessment & Plan: He believes he has been and sinus rhythm on amiodarone. He has been on this for a number of years. It was actually started by Dr. Solomon many years ago. I would suggest that we decrease the dose to 100 mg daily to help reduce the risk of long-term, irreversible toxic side effects. I have ordered an electrocardiogram for the morning. For unclear reasons, he is not on a DOAC. (3) Primary hypertension Assessment & Plan: Blood pressure appears reasonably controlled with losartan and amlodipine. (4) Mixed hyperlipidemia Assessment & Plan: He has an apparent history of hyperlipidemia but is not on a statin medication. I have added a lipid panel to previous blood sample. ELLIS KING DO Oct 26, 2021 06:16
[2021-10-26] MEDS: LEVOTHYROXINE 100 MCG (LEVOTHROID) TAB PO SCH (06:46)
[2021-10-26] MEDS: LEVOTHYROXINE 75 MCG (LEVOTHROID) TABLET PO SCH (06:46)
[2021-10-26 07:24] VITALS: BP 135/61
[2021-10-26] MEDS: polyethylene glycoL POWDER 17 GM (MIRALAX) PACK PO SCH ×2 (09:04→20:43)
[2021-10-26] MEDS: DOCUSATE SODIUM 100 MG (COLACE) CAP PO SCH ×2 (09:04→20:41)
[2021-10-26] MEDS: buPROPion SR 150 MG (WELLBUTRIN SR) TAB PO SCH ×2 (09:04→20:41)
[2021-10-26] MEDS: amLODIPine 5 MG (NORVASC) TAB PO SCH (09:04)
[2021-10-26] MEDS: LOSARTAN 100 MG (COZAAR) TABLET PO SCH (09:05)
[2021-10-26] MEDS: ISOSORBIDE MONONITRATE 60 MG (IMDUR) TAB PO SCH ×2 (09:05→20:41)
[2021-10-26] MEDS: SENNA W/DOCUSATE (SENOKOT S) TABLET PO SCH ×2 (09:05→20:41)
[2021-10-26] MEDS: PRASUGREL 10 MG (EFFIENT) TABLET PO SCH (09:05)
[2021-10-26] MEDS: FERROUS SULFATE ORAL LIQUID 44 MG/ML ML PO SCH (09:05)
[2021-10-26] MEDS: ASPIRIN E.C. 81 MG (ECOTRIN) TAB PO SCH (09:11)
[2021-10-26] MEDS: AMIODARONE 200 MG (CORDARONE) TAB PO SCH (09:11)
--- NOTE | 2021-10-26 10:09 | Physical Therapy Daily Note ---
PT Daily Note-Current Subjective Pt in bed upon arrival and agrees to PT. Pt reports that his arm is hurting more than his leg today but does not rate. Pain Location: Right Location Body Site: Arm Mental Status Patient Orientation: Person, Place, Time, Normal For Age Attachments: Oxygen Transfers SCALE: Activities may be completed with or without assistive devices. 4-Tvnqfngukc-oywncmp completes the activity by him/herself with no assistance from a helper. 5-Set-up or Clean-up Assistance-helper sets up or cleans up; patient completes activity. [place] assists only prior to or following the activity. 4-Supervision or Touching Assistance-helper provides verbal cues and/or touching/steadying and/or contact guard assistance as patient completes activity. Assistance may be provided throughout the activity or intermittently. 3-Partial/Moderate Assistance-helper does LESS THAN HALF the effort. [place] lifts, holds or supports trunk or limbs, but provides less than half the effort. 2-Substantial/Maximal Assistance-helper does MORE THAN HALF the effort. [place] lifts or holds trunk or limbs and provides more than half the effort. 6-Gadeaonsl-woqojl does ALL the effort. Patient does none of the effort to complete the activity. Or, the assistance of 2 or more helpers is required for the patient to complete the activity. If activity was not attempted, code reason: 7-Patient Refused. 9-Not Applicable-not attempted and the patient did not perform the activity before the current illness, exacerbation or injury. 10-Not Attempted due to Environmental Limitations-(lack of equipment, weather restraints, etc.). 88-Not Attempted due to Medical Conditions or Safety Concerns. Roll Left & Right (QC): 4 Sit to Lying (QC): 3 Lying to Sitting/Side of Bed(Q: 4 Sit to Stand (QC): 3 Weight Bearing Right Lower Extremity: Right Full Weight Bearing Left Lower Extremity: Left Weight Bearing/Tolerated RUE in sling and NWB, LLE in knee immobilizer Gait Training Does the Patient Walk?: Yes Distance: 250' x 2 Walk 10 feet (QC): 4 Walk 50 ft with 2 Turns(QC): 4 Walk 150 ft (QC): 3 Gait Persons Needed: 1 Gait Assistive Device: Walker Vinh Treatments Pt in bed upon arrival and agrees to PT. Pt requires CGA/Corrie to TFs from bed to sitting EOB. Pt then requires modA/Corrie for sit to stand. Pt then amb 250' then requires prolonged rest break. Pt then amb 250' back to room and TFs back to bed. Pt requires modA for LLE placement into bed. All needs met and call light nearby as PT departs. Assessment Current Status: Good Progress Pt requires skilled verbal and tactile cues for UE and LE placement while performing TFs. PT Short Term Goals Short Term Goals Time Frame: Oct 31, 2021 Roll Left & Right: 4 Sit to lyin Lying to sitting on side of be: 4 (SBA) Sit to stand: 3 Chair/nsf-gj-acmzi transfer: 3 Toilet transfer: 3 Car transfer: 3 Walk 10 feet: 4 Walk 50 feet with two turns: 4 Walk 150 feet: 4 PT [facility] Goals Fiber Optic Splicer Goals PT Fiber Optic Splicer Goals Time Frame: November 14, 2021 Roll Left & Right (QC): 6 Sit to Lying (QC): 6 Lying-Sitting on Side/Bed(QC): 6 Sit to Stand (QC): 4 (SBA) Chair/Mbh-oc-Ivasd Xfer(QC): 4 (SBA) Toilet Transfer (QC): 4 (SBA) Car Transfer (QC): 88 Does the Patient Walk: Yes Walk 10 feet (QC): 6 Walk 50ft with 2 Turns (QC): 6 Walk 150 ft (QC): 6 Walking 10ft on Uneven Surface: 6 1 Step (curb) (QC): 4 4 Steps (QC): 4 12 Steps (QC): 88 Picking up an Object (QC): 6 Wheel 50 feet with 2 turns (QC: 6 Type: Manual Wheel 150 feet: 6 Type: Manual PT Plan Problem List Problem List: Activity Tolerance, Functional Strength, Safety Treatment/Plan Treatment Plan: Continue Plan of Care Treatment Plan: Bed Mobility, Education, Functional Activity David, Functional Strength, Group Therapy, Gait, Safety, Therapeutic Exercise, Transfers Treatment Duration: November 14, 2021 Frequency: At least 5 of 7 days/Wk (IRF) Estimated Hrs Per Day: 1.5 hours per day Patient and/or Family Agrees t: Yes Safety Risks/Education Patient Education: Gait Training, Transfer Techniques, Correct Positioning Teaching Recipient: Patient Teaching Methods: Discussion Response to Teaching: Return Demonstration Time/GCodes Time In: 810 Time Out: 840 Total Billed Treatment Time: 30 Total Billed Treatment 1, FA (15min), GT (15min) DRAKE LINK TIME CYCLE OPERATOR Oct 26, 2021 10:09
--- NOTE | 2021-10-26 12:37 | Cardiology Progress Note ---
Progress Note-Cardiology Events since last exam Date Seen by Provider: Oct 26, 2021 Time Seen by Provider: 12:36 Events since last exam I am following him due to coronary artery disease and atrial fibrillation. He remains on the inpatient physical rehabilitation unit. He was sitting up in bed watching television. He denies chest pain, dyspnea, palpitations, syncope, or ankle edema. Certain portions of this document may have been dictated utilizing voice recognition technology. Inherent to this technology, typographical and grammatical errors may exist. As much as I am diligent to identify and correct these mistakes, some errors may remain in the document. Vitals Last set of Vitals Signs Vital Signs 10/26/21 10/26/21 10/26/21 07:24 08:35 11:43 Temp 36.9 Pulse 67 Resp 20 B/P (MAP) 135/61 (85) Pulse Ox 96 O2 Delivery Nasal Cannula O2 Flow Rate 2.00 Exam Vital Signs Vital Signs Date Time Temp Pulse Resp B/P (MAP) Pulse Ox O2 Delivery O2 Flow Rate FiO2 10/26/21 11:43 Nasal Cannula 2.00 10/26/21 08:35 96 10/26/21 07:24 36.9 67 20 135/61 (85) Physical Exam General: Alert. No acute distress. Eye: No xanthelasma. HENT: Normocephalic. Neck: Jugular venous pressure does not appear elevated. Respiratory: Lungs are clear to auscultation. Respirations are non-labored. Breath sounds are equal. Symmetrical chest wall expansion. Cardiovascular: Normal rate. Regular rhythm. 1/6 systolic ejection murmur. No gallop. No edema. Gastrointestinal: Soft. Normal bowel sounds. Skin: Warm. Dry. Neurologic: Alert and oriented to person, place, time. Cranial nerves 3-11 grossly intact. Psychiatric: Cooperative. Appropriate mood & affect. Diagnosis/Problems Diagnosis/Problems (1) Coronary artery disease without angina pectoris Assessment & Plan: He is not having any angina. He is on aspirin, prasugrel and long-acting nitrates. He states that he had a stent well over 1 year ago. I suggested that he might want to speak with his regular architectural drafter about stopping prasugrel sometime in the future. Ongoing use of prasugrel could put him at increased risk of hemorrhagic side effects. We do not typically use prasugrel for prolonged dual antiplatelet therapy. (2) Paroxysmal atrial fibrillation Assessment & Plan: He believes he has been in sinus rhythm on amiodarone. He has been on this for a number of years. It was actually started by Dr. Solomon many years ago. I decreased the dose from 200 mg to 100 mg daily to help reduce the risk of long-term, irreversible toxic side effects. For unclear reasons, he is not on a DOAC. (3) Primary hypertension Assessment & Plan: Blood pressure appears reasonably controlled with losartan and amlodipine. (4) Mixed hyperlipidemia Assessment & Plan: He has an apparent history of hyperlipidemia but is not on a statin medication. His LDL level is actually quite low. I will hold off on adding a statin medication at this time. He can discuss this with his regular architectural drafter at the outside facility following discharge. BERRY LAGUNA JR, MD Oct 26, 2021 12:37
[2021-10-26 20:00] VITALS: BP 125/70
[2021-10-26] MEDS: FINASTERIDE (PROSCAR) 5 MG TAB PO SCH (20:41)
[2021-10-26] MEDS: PANTOPRAZOLE 40 MG (PROTONIX) TAB PO SCH (20:41)
--- NOTE | 2021-10-27 05:45 | PM&R Progress Note ---
Subjective HPI/CC On Admission Date Seen by Provider: Oct 27, 2021 Time Seen by Provider: 08:00 Subjective/Events-last exam 10/27/21: Patient doing well Colace given Cranky at times No pain at this current time 10/26/21: Patient feeling a lot better Working on balance Pain is controlled on oxycodone Supportive care will continue Wants to go home soon This patient has a mobility limitation that significantly impairs his ability to participate in mobility-related activities of daily living that cannot be adequately or safely addressed by a cane. This patient is able to safely use the vinh walker. The functional mobility deficit can be sufficiently resolved with use of a vinh walker. 10/25/2021: Patient doing really well Wants to go home soon Patient had 2 near falls during therapy indicating he really needs to stay Cardiology consulted Pain is pretty well controlled on oxycodone but hydrocodone makes him delirious Review of Systems General: Fatigue, Malaise Musculoskeletal: arm pain, leg pain Objective Exam Vital Signs Vital Signs Date Time Temp Pulse Resp B/P (MAP) Pulse Ox O2 Delivery O2 Flow Rate FiO2 10/27/21 09:00 Nasal Cannula 2.00 10/27/21 08:48 94 10/27/21 07:54 36.8 68 18 100/51 (67) Capillary Refill : General Appearance: No Apparent Distress, WD/WN, Chronically ill HEENT: PERRL/EOMI, Normal ENT Inspection, Pharynx Normal Neck: Full Range of Motion, Normal Inspection, Non Tender, Supple, Carotid Bruit Respiratory: Chest Non Tender, Lungs Clear, Normal Breath Sounds, No Accessory Muscle Use, No Respiratory Distress Cardiovascular: Regular Rate, Rhythm, No Edema, No Gallop, No JVD, No Murmur, Normal Peripheral Pulses Gastrointestinal: Normal Bowel Sounds, No Organomegaly, No Pulsatile Mass, Non Tender, Soft Back: Normal Inspection, No CVA Tenderness, No Vertebral Tenderness Extremity: Normal Capillary Refill, Normal Inspection, Normal Range of Motion (Except for right arm and right leg), Non Tender, No Calf Tenderness, No Pedal Edema Neurologic/Psychiatric: Alert, Oriented x3, No Motor/Sensory Deficits, Normal Mood/Affect, hand riveter II-XII Norm as Tested, Abnormal Gait, Motor Weakness (Generali zed) Skin: Normal Color, Warm/Dry Lymphatic: No Adenopathy Results/Procedures Lab Patient resulted labs reviewed. FIM Transfers Therapy Code Descriptions/Definitions Functional [place] Measure: 0=Not Assessed/NA 4=Minimal Assistance 1=Total Assistance 5=Supervision or Setup 2=Maximal Assistance 6=Modified [place] 3=Moderate Assistance 7=Complete IndependenceSCALE: Activities may be completed with or without assistive devices. 4-Kmbgoqswhg-umkjuiy completes the activity by him/herself with no assistance from a helper. 5-Set-up or Clean-up Assistance-helper sets up or cleans up; patient completes activity. [place] assists only prior to or following the activity. 4-Supervision or Touching Assistance-helper provides verbal cues and/or touching/steadying and/or contact guard assistance as patient completes activity. Assistance may be provided throughout the activity or intermittently. 3-Partial/Moderate Assistance-helper does LESS THAN HALF the effort. [place] lifts, holds or supports trunk or limbs, but provides less than half the effort. 2-Substantial/Maximal Assistance-helper does MORE THAN HALF the effort. [place] lifts or holds trunk or limbs and provides more than half the effort. 5-Crwpwintq-ogpoym does ALL the effort. Patient does none of the effort to complete the activity. Or, the assistance of 2 or more helpers is required for the patient to complete the activity. If activity was not attempted, code reason: 7-Patient Refused. 9-Not Applicable-not attempted and the patient did not perform the activity before the current illness, exacerbation or injury. 10-Not Attempted due to Environmental Limitations-(lack of equipment, weather restraints, etc.). 88-Not Attempted due to Medical Conditions or Safety Concerns. Roll Left to Right (QC): 4 Sit to Lying (QC): 3 Sit to Stand (QC): 3 Chair/Yoj-mj-Ezrhl Xfer(QC): 2 Car Transfer (QC): 88 Gait Training Does the Patient Walk?: Yes Distance: 250' x 2 Walk 10 feet (QC): 4 Walk 50 ft with 2 Turns(QC): 4 Walk 150 ft (QC): 3 Walking 10ft/uneven surface-QC: 4 Gait Persons Needed: 1 Gait Assistive Device: Walker Vinh Wheelchair Training Does the Pt Use a Wheelchair?: Yes Distance: 50', 30' Wheel 50 ft with 2 turns (QC): 3 Wheel 150 ft (QC): 88 Stair Training #of Steps: 1 1 Step (curb) (QC): 4 4 Steps (QC): 88 12 Steps (QC): 88 Balance Picking up an Object (QC): 4 (using printer's assistant) ADL-Treatment Eating (QC): 4 Oral Hygiene (QC): 4 Shower/Bathe Self (QC): 3 Upper Body Dressing (QC): 2 Lower Body Dressing (QC): 2 On/Off Footwear (QC): 1 Toileting Hygiene (QC): 3 Toilet Transfer (QC): 3 Assessment/Plan Assessment and Plan Assess & Plan/Chief Complaint Assessment: Fall Proximal right humerus fracture Right patellar fracture Atrial fibrillation presumed not an anticoagulation candidate due to fall risk? Consulting cardiology CAD previous triple bypass Hypertension Hyperlipidemia Hypothyroidism Plan: Pain control PT and OT Assistive devices Cardiology consult Orthopedic consult 10/25/2021: Supportive care Pain control with oxycodone 10/26/2021: Supportive care Oxycodone Hemiwalker 10/27/21: Monitor pain Monitor BP (1) Coronary artery disease without angina pectoris Assessment & Plan: He is not having any angina. He is on aspirin, prasugrel and long-acting nitrates. He states that he had a stent well over 1 year ago. I suggested that he might want to speak with his regular irrigation manager about stopping prasugrel sometime in the future. Ongoing use of prasugrel could put him at increased risk of hemorrhagic side effects. We do not typically use prasugrel for prolonged dual antiplatelet therapy. (2) Paroxysmal atrial fibrillation Assessment & Plan: He believes he has been in sinus rhythm on amiodarone. He has been on this for a number of years. It was actually started by Dr. Solomon many years ago. I decreased the dose from 200 mg to 100 mg daily to help reduce the risk of long-term, irreversible toxic side effects. For unclear reasons, he is not on a DOAC. (3) Primary hypertension Assessment & Plan: Blood pressure appears reasonably controlled with losartan and amlodipine. (4) Mixed hyperlipidemia Assessment & Plan: He has an apparent history of hyperlipidemia but is not on a statin medication. His LDL level is actually quite low. I will hold off on adding a statin medication at this time. He can discuss this with his regular irrigation manager at the outside facility following discharge. ELLIS KING DO Oct 27, 2021 05:45
[2021-10-27] MEDS: LEVOTHYROXINE 100 MCG (LEVOTHROID) TAB PO SCH (06:40)
[2021-10-27] MEDS: LEVOTHYROXINE 75 MCG (LEVOTHROID) TABLET PO SCH (06:41)
[2021-10-27 07:54] VITALS: BP 100/51
[2021-10-27] MEDS: LOSARTAN 100 MG (COZAAR) TABLET PO SCH (08:03)
[2021-10-27] MEDS: amLODIPine 5 MG (NORVASC) TAB PO SCH (08:03)
[2021-10-27] MEDS: PRASUGREL 10 MG (EFFIENT) TABLET PO SCH (08:03)
[2021-10-27] MEDS: SENNA W/DOCUSATE (SENOKOT S) TABLET PO SCH ×2 (08:03→20:44)
[2021-10-27] MEDS: buPROPion SR 150 MG (WELLBUTRIN SR) TAB PO SCH ×2 (08:03→20:44)
[2021-10-27] MEDS: ISOSORBIDE MONONITRATE 60 MG (IMDUR) TAB PO SCH ×2 (08:03→20:44)
[2021-10-27] MEDS: DOCUSATE SODIUM 100 MG (COLACE) CAP PO SCH ×2 (08:03→20:45)
[2021-10-27] MEDS: FERROUS SULFATE ORAL LIQUID 44 MG/ML ML PO SCH (08:03)
[2021-10-27] MEDS: ASPIRIN E.C. 81 MG (ECOTRIN) TAB PO SCH (08:08)
[2021-10-27] MEDS: polyethylene glycoL POWDER 17 GM (MIRALAX) PACK PO SCH ×2 (08:09→20:45)
[2021-10-27 19:24] VITALS: BP 116/56
[2021-10-27] MEDS: PANTOPRAZOLE 40 MG (PROTONIX) TAB PO SCH (20:44)
[2021-10-27] MEDS: FINASTERIDE (PROSCAR) 5 MG TAB PO SCH (20:44)
[2021-10-28] MEDS: LEVOTHYROXINE 75 MCG (LEVOTHROID) TABLET PO SCH (05:36)
[2021-10-28] MEDS: LEVOTHYROXINE 100 MCG (LEVOTHROID) TAB PO SCH (05:36)
--- NOTE | 2021-10-28 05:44 | PM&R Progress Note ---
Subjective HPI/CC On Admission Date Seen by Provider: Oct 28, 2021 Time Seen by Provider: 09:30 Subjective/Events-last exam 10/28/2021: Pt is doing really well Still needing a lot of assistance to help him Reports that he wants to go home as soon as possible but he is just not performing well and we need to inform him of this No bowel movement since 10/23 so laxatives given 10/27/21: Patient doing well Colace given Cranky at times No pain at this current time 10/26/21: Patient feeling a lot better Working on balance Pain is controlled on oxycodone Supportive care will continue Wants to go home soon This patient has a mobility limitation that significantly impairs his ability to participate in mobility-related activities of daily living that cannot be adequately or safely addressed by a cane. This patient is able to safely use the vinh walker. The functional mobility deficit can be sufficiently resolved with use of a vinh walker. 10/25/2021: Patient doing really well Wants to go home soon Patient had 2 near falls during therapy indicating he really needs to stay Cardiology consulted Pain is pretty well controlled on oxycodone but hydrocodone makes him delirious Review of Systems General: Fatigue, Malaise Gastrointestinal: Constipation Musculoskeletal: arm pain, leg pain Objective Exam Vital Signs Vital Signs Date Time Temp Pulse Resp B/P (MAP) Pulse Ox O2 Delivery O2 Flow Rate FiO2 10/28/21 20:00 Room Air 10/28/21 19:23 36.9 74 16 129/56 (80) 94 10/28/21 08:28 2.00 Capillary Refill : General Appearance: No Apparent Distress, WD/WN, Chronically ill HEENT: PERRL/EOMI, Normal ENT Inspection, Pharynx Normal Neck: Full Range of Motion, Normal Inspection, Non Tender, Supple, Carotid Bruit Respiratory: Chest Non Tender, Lungs Clear, Normal Breath Sounds, No Accessory Muscle Use, No Respiratory Distress Cardiovascular: Regular Rate, Rhythm, No Edema, No Gallop, No JVD, No Murmur, Normal Peripheral Pulses Gastrointestinal: Normal Bowel Sounds, No Organomegaly, No Pulsatile Mass, Non Tender, Soft Back: Normal Inspection, No CVA Tenderness, No Vertebral Tenderness Extremity: Normal Capillary Refill, Normal Inspection, Normal Range of Motion (Except for right arm and right leg), Non Tender, No Calf Tenderness, No Pedal Edema Neurologic/Psychiatric: Alert, Oriented x3, No Motor/Sensory Deficits, Normal Mood/Affect, cereal supervisor II-XII Norm as Tested, Abnormal Gait, Motor Weakness (Generalized) Skin: Normal Color, Warm/Dry Lymphatic: No Adenopathy Results/Procedures Lab Laboratory Tests 10/28/21 05:43 Patient resulted labs reviewed. FIM Transfers Therapy Code Descriptions/Definitions Functional [place] Measure: 0=Not Assessed/NA 4=Minimal Assistance 1=Total Assistance 5=Supervision or Setup 2=Maximal Assistance 6=Modified [place] 3=Moderate Assistance 7=Complete IndependenceSCALE: Activities may be completed with or without assistive devices. 1-Dpixzqfahz-jkgittz completes the activity by him/herself with no assistance from a helper. 5-Set-up or Clean-up Assistance-helper sets up or cleans up; patient completes activity. [place] assists only prior to or following the activity. 4-Supervision or Touching Assistance-helper provides verbal cues and/or touching/steadying and/or contact guard assistance as patient completes activity. Assistance may be provided throughout the activity or intermittently. 3-Partial/Moderate Assistance-helper does LESS THAN HALF the effort. [place] lifts, holds or supports trunk or limbs, but provides less than half the effort. 2-Substantial/Maximal Assistance-helper does MORE THAN HALF the effort. [place] lifts or holds trunk or limbs and provides more than half the effort. 8-Bfplkujzg-qkuktf does ALL the effort. Patient does none of the effort to complete the activity. Or, the assistance of 2 or more helpers is required for the patient to complete the activity. If activity was not attempted, code reason: 7-Patient Refused. 9-Not Applicable-not attempted and the patient did not perform the activity before the current illness, exacerbation or injury. 10-Not Attempted due to Environmental Limitations-(lack of equipment, weather restraints, etc.). 88-Not Attempted due to Medical Conditions or Safety Concerns. Roll Left to Right (QC): 4 Sit to Lying (QC): 3 Sit to Stand (QC): 3 Chair/Asn-xk-Nptqe Xfer(QC): 2 Car Transfer (QC): 88 Gait Training Does the Patient Walk?: Yes Distance: 250' x 2 Walk 10 feet (QC): 4 Walk 50 ft with 2 Turns(QC): 4 Walk 150 ft (QC): 3 Walking 10ft/uneven surface-QC: 4 Gait Persons Needed: 1 Gait Assistive Device: Walker Vinh Wheelchair Training Does the Pt Use a Wheelchair?: Yes Distance: 50', 30' Wheel 50 ft with 2 turns (QC): 3 Wheel 150 ft (QC): 88 Stair Training #of Steps: 1 1 Step (curb) (QC): 4 4 Steps (QC): 88 12 Steps (QC): 88 Balance Picking up an Object (QC): 4 (using sand temperer) ADL-Treatment Eating (QC): 4 Oral Hygiene (QC): 4 Shower/Bathe Self (QC): 3 Upper Body Dressing (QC): 2 Lower Body Dressing (QC): 2 On/Off Footwear (QC): 1 Toileting Hygiene (QC): 3 Toilet Transfer (QC): 3 Assessment/Plan Assessment and Plan Assess & Plan/Chief Complaint Assessment: Fall Proximal right humerus fracture Right patellar fracture Atrial fibrillation presumed not an anticoagulation candidate due to fall risk? Consulting cardiology CAD previous triple bypass Hypertension Hyperlipidemia Hypothyroidism Constipation Plan: Pain control PT and OT Assistive devices Cardiology consult Orthopedic consult 10/25/2021: Supportive care Pain control with oxycodone 10/26/2021: Supportive care Oxycodone Hemiwalker 10/27/21: Monitor pain Monitor BP 10/28/2021: Constipation regimen Explained he cannot go home when he needs this much assistance he seems to be in denial (1) Coronary artery disease without angina pectoris Assessment & Plan: He is not having any angina. He is on aspirin, prasugrel and long-acting nitrates. He states that he had a stent well over 1 year ago. I suggested that he might want to speak with his regular farm operator about stopping prasugrel sometime in the future. Ongoing use of prasugrel could put him at increased risk of hemorrhagic side effects. We do not typically use prasugrel for prolonged dual antiplatelet therapy. (2) Paroxysmal atrial fibrillation Assessment & Plan: He believes he has been in sinus rhythm on amiodarone. He has been on this for a number of years. It was actually started by Dr. Solomon many years ago. I decreased the dose from 200 mg to 100 mg daily to help reduce the risk of long-term, irreversible toxic side effects. For unclear reasons, he is not on a DOAC. (3) Primary hypertension Assessment & Plan: Blood pressure appears reasonably controlled with losartan and amlodipine. (4) Mixed hyperlipidemia Assessment & Plan: He has an apparent history of hyperlipidemia but is not on a statin medication. His LDL level is actually quite low. I will hold off on adding a statin medication at this time. He can discuss this with his regular farm operator at the outside facility following discharge. ELLIS KING DO Oct 28, 2021 05:44
[2021-10-28 05:55] LABS: BASOPHILS % (AUTO) 1 % (0-10); MEAN PLATELET VOLUME 12.8 fL (9.0-12.2)
[2021-10-28 05:57] LABS: EOSINOPHILS # (AUTO) 0.4 10^3/uL (0.0-0.3); EOSINOPHILS % (AUTO) 5 % (0-10); HEMATOCRIT 33 % (40-54); HEMOGLOBIN 10.5 g/dL (13.3-17.7); LYMPHOCYTES # (AUTO) 0.8 10^3/uL (1.0-4.0); LYMPHOCYTES % (AUTO) 11 % (12-44); MEAN CORPUSCULAR HEMOGLOBIN 28 pg (25-34); MEAN CORPUSCULAR HGB CONC 32 g/dL (32-36); MEAN CORPUSCULAR VOLUME 89 fL (80-99); MONOCYTES % (AUTO) 15 % (0-12); NEUTROPHILS # (AUTO) 4.5 10^3/uL (1.8-7.8); NEUTROPHILS % (AUTO) 68 % (42-75); PLATELET COUNT 119 10^3/uL (130-400); WHITE BLOOD COUNT 6.7 10^3/uL (4.3-11.0)
[2021-10-28 06:12] LABS: ALBUMIN 3.8 GM/DL (3.2-4.5); POTASSIUM 4.7 MMOL/L (3.6-5.0)
[2021-10-28 06:14] LABS: CALCIUM 8.9 MG/DL (8.5-10.1)
[2021-10-28 06:15] LABS: TOTAL PROTEIN 6.2 GM/DL (6.4-8.2)
[2021-10-28 06:17] LABS: BILIRUBIN,TOTAL 0.6 MG/DL (0.1-1.0)
[2021-10-28 06:19] LABS: CREATININE SERUM 0.96 MG/DL (0.60-1.30)
[2021-10-28 07:32] VITALS: BP 114/53
[2021-10-28] MEDS: SENNA W/DOCUSATE (SENOKOT S) TABLET PO SCH ×2 (07:41→20:37)
[2021-10-28] MEDS: ISOSORBIDE MONONITRATE 60 MG (IMDUR) TAB PO SCH ×2 (07:41→20:37)
[2021-10-28] MEDS: ASPIRIN E.C. 81 MG (ECOTRIN) TAB PO SCH (07:41)
[2021-10-28] MEDS: PRASUGREL 10 MG (EFFIENT) TABLET PO SCH (07:41)
[2021-10-28] MEDS: polyethylene glycoL POWDER 17 GM (MIRALAX) PACK PO SCH ×2 (07:41→20:36)
[2021-10-28] MEDS: buPROPion SR 150 MG (WELLBUTRIN SR) TAB PO SCH ×2 (07:42→20:37)
[2021-10-28] MEDS: LOSARTAN 100 MG (COZAAR) TABLET PO SCH (07:42)
[2021-10-28] MEDS: DOCUSATE SODIUM 100 MG (COLACE) CAP PO SCH ×2 (07:42→20:37)
[2021-10-28] MEDS: amLODIPine 5 MG (NORVASC) TAB PO SCH (07:42)
[2021-10-28] MEDS: FERROUS SULFATE ORAL LIQUID 44 MG/ML ML PO SCH (07:43)
[2021-10-28] MEDS: AMIODARONE 200 MG (CORDARONE) TAB PO SCH (07:45)
--- NOTE | 2021-10-28 10:11 | Occupational Ther Daily Note ---
OT Current Status-Daily Note Subjective Pt reports feeling "okay" does not give pain a numerical value. Appearance Pt left sitting in recliner, all needs within reach. Mental Status/Objective Patient Orientation: Person, Place, Situation Attachments: Oxygen (2L) ADL-Treatment Therapy Code Descriptions/Definitions Functional [place] Measure: 0=Not Assessed/NA 4=Minimal Assistance 1=Total Assistance 5=Supervision or Setup 2=Maximal Assistance 6=Modified [place] 3=Moderate Assistance 7=Complete IndependenceSCALE: Activities may be completed with or without assistive devices. 0-Xzcelgktpt-elspqah completes the activity by him/herself with no assistance from a helper. 5-Set-up or Clean-up Assistance-helper sets up or cleans up; patient completes activity. [place] assists only prior to or following the activity. 4-Supervision or Touching Assistance-helper provides verbal cues and/or touching/steadying and/or contact guard assistance as patient completes activity. Assistance may be provided throughout the activity or intermittently. 3-Partial/Moderate Assistance-helper does LESS THAN HALF the effort. [place] lifts, holds or supports trunk or limbs, but provides less than half the effort. 2-Substantial/Maximal Assistance-helper does MORE THAN HALF the effort. [place] lifts or holds trunk or limbs and provides more than half the effort. 6-Lnznammcc-vjevcm does ALL the effort. Patient does none of the effort to complete the activity. Or, the assistance of 2 or more helpers is required for the patient to complete the activity. If activity was not attempted, code reason: 7-Patient Refused. 9-Not Applicable-not attempted and the patient did not perform the activity before the current illness, exacerbation or injury. 10-Not Attempted due to Environmental Limitations-(lack of equipment, weather restraints, etc.). 88-Not Attempted due to Medical Conditions or Safety Concerns. Oral Hygiene (QC): 5 Shower/Bathe Self (QC): 3 (min) Upper Body Dressing (QC): 3 (min) Lower Body Dressing (QC): 3 Pt supine at OT arrival. Still wearing same clothes that OT brought him on Thursday. Sponge bath/dressing performed sitting at side of bed. Education/reminders provided on compensatory strategies when donning/doffing clothing with sling and knee immobolizer. Post instruction, pt able to doff sling and shirt without assist. He utilized LHS to wash under L axilla, min a for thoroughness. He stood to wash estela area/buttocks with CGA for balance safety. LE's not addressed. Mod cues and min a to thread RUE into sleeve. Pt able to fur puller head, thread LUE and pull down with extra time and sequencing cues. Mod a to don sling. Extra time and min-mod a to thread LLE into pant leg with use of nurse staff community health. Assist required secondary to material getting caught on immobolizer velcro and patient had difficulty lifting foot off floor when sliding pants over heels. He was able to manage up to waist with CGA for safety. No LOB. He ambulated within room with use of yany walker and CGA. He sat to brush dentures with set up assist (dentures placed on wet washcloth to keep from sliding as pt brushed them with use of L hand). At OT arrival, pt on 2L oxygen, [place]; 98%. Oxygen spot checked throughout adls and remains >95%. Oxygen removed and checked again after mobility. Pt remains >92%. RN and PT notified to check levels throughout day/activity. Education OT Patient Education: Correct positioning, Energy conservation, Modified ADL techniques, Progress toward Goal/Update tx plan, Purpose of tx/functional activities, Reviewed precautions, Safety issues, Transfer techniques, Use of adapted equipment Teaching Recipient: Patient Teaching Methods: Demonstration, Discussion Response to Teaching: Verbalize Understanding, Return Demonstration OT Short Term Goals Short Term Goals Time Frame: Nov 04, 2021 Eatin Oral hygiene: 4 Toileting hygiene: 3 Shower/bathe self: 3 Upper body dressin Lower body dressin Putting on/taking off footwear: 2 OT Shelter Goals Computer Salesperson Retail Goals Time Frame: November 14, 2021 Eating (QC): 5 Oral Hygiene (QC): 5 Toileting Hygiene (QC): 6 Shower/Bathe Self (QC): 5 Upper Body Dressing (QC): 4 Lower Body Dressing (QC): 4 On/Off Footwear (QC): 4 1=Demonstrate adherence to instructed precautions during ADL tasks. 2=Patient will verbalize/demonstrate understanding of assistive devices/modifications for ADL. 3=Patient will improve strength/tolerance for activity to enable patient to perform ADL's. OT Education/Plan Problem List/Assessment Assessment: Decreased Activ Tolerance, Decreased UE Strength, Impaired Funct Balance, Impaired I ADL's, Impaired Self-Care Skills, Restricted Funct UE ROM Discharge Recommendations Plan/Recommendations: Continue POC Equpiment Recommendations-D/C: Aircraft Metalsmith Treatment Plan/Plan of Care Treatment,Training & Education: Yes Patient would benefit from OT for education, treatment and training to promote independence in ADL's, mobility, safety and/or upper extremity function for ADL's. Plan of Care: ADL Retraining, Functional Mobility, Group Exercise/Act as Ind, Orthotic Fitting/Training, UE Funct Exercise/Act, W/C Management Training Treatment Duration: November 14, 2021 Frequency: At least 5 of 7 days/Wk (IRF) Estimated Hrs Per Day: 1.5 hours per day (60-90 min/day) Agreement: Yes Rehab Potential: Fair Time/GCodes Start Time: 08:55 Stop Time: 10:00 Total Time Billed (hr/min): 65 Billed Treatment Time 1 visit ADL x4 Sydnie Shine OT Oct 28, 2021 10:11
--- NOTE | 2021-10-28 11:27 | Physical Therapy Daily Note ---
PT Daily Note-Current Subjective Patient consented to treat today and has no new complaints Pain Numeric Pain Scale: 7 Location: Right Location Body Site: Ankle Transfers SCALE: Activities may be completed with or without assistive devices. 4-Btazmhywvl-oigdrcy completes the activity by him/herself with no assistance from a helper. 5-Set-up or Clean-up Assistance-helper sets up or cleans up; patient completes activity. [place] assists only prior to or following the activity. 4-Supervision or Touching Assistance-helper provides verbal cues and/or touching/steadying and/or contact guard assistance as patient completes activity. Assistance may be provided throughout the activity or intermittently. 3-Partial/Moderate Assistance-helper does LESS THAN HALF the effort. [place] lifts, holds or supports trunk or limbs, but provides less than half the effort. 2-Substantial/Maximal Assistance-helper does MORE THAN HALF the effort. [place] lifts or holds trunk or limbs and provides more than half the effort. 0-Efuotvlkg-azzmjv does ALL the effort. Patient does none of the effort to complete the activity. Or, the assistance of 2 or more helpers is required for the patient to complete the activity. If activity was not attempted, code reason: 7-Patient Refused. 9-Not Applicable-not attempted and the patient did not perform the activity before the current illness, exacerbation or injury. 10-Not Attempted due to Environmental Limitations-(lack of equipment, weather restraints, etc.). 88-Not Attempted due to Medical Conditions or Safety Concerns. Lying to Sitting/Side of Bed(Q: 4 Sit to Stand (QC): 3 Chair/Cnm-ka-Razfe Xfer(QC): 3 Weight Bearing Right Lower Extremity: Right Full Weight Bearing Left Lower Extremity: Left Weight Bearing/Tolerated RUE in sling and NWB, LLE in knee immobilizer Gait Training Distance: 150', 150', 60' Walk 10 feet (QC): 4 (CGA) Walk 50 ft with 2 Turns(QC): 4 (CGA) Walk 150 ft (QC): 4 (CGA) Gait Assistive Device: Cane Large Base Quad L knee immobilizer, L wide base quad cane. Wheelchair Training Does the Pt Use a Wheelchair?: No Exercises Supine Ex: Bridging (with red theraball under knees), Ankle pumps, Straight leg raise Supine Reps: 30 Seated Therapy Exercises: Long arc quads (3lb weight, RLE only) Seated Reps: 30 Standing: Sit to Stand Standing Reps: 15 Standing leg extension, step ups on 4inch block, Hip Abduction - (20 reps) Treatments LE strengthening, ambulation, mobility, transfers Assessment Current Status: Good Progress Patient recieved a new knee immobilizer today with better support, and seems to be working well. Patient also trialled a wide 4 point cane, and seems to provide good support for the patient as well. Patient was not on oxygen today, and tolerated exercise without it, maintaining SpO2 above 90% throughout treatment. Patient seems to be slowly progressing in strength with LE exercises and transfers. Patient was left in chair with call light, tray, and all needs met. PT Short Term Goals Short Term Goals Time Frame: Oct 31, 2021 Roll Left & Right: 4 Sit to lyin Lying to sitting on side of be: 4 (SBA) Sit to stand: 3 Chair/hjw-lh-igmii transfer: 3 Toilet transfer: 3 Car transfer: 3 Walk 10 feet: 4 Walk 50 feet with two turns: 4 Walk 150 feet: 4 PT Alf Goals Closing Supervisor Goals PT Alf Goals Time Frame: November 14, 2021 Roll Left & Right (QC): 6 Sit to Lying (QC): 6 Lying-Sitting on Side/Bed(QC): 6 Sit to Stand (QC): 4 (SBA) Chair/Krx-gl-Ufcyv Xfer(QC): 4 (SBA) Toilet Transfer (QC): 4 (SBA) Car Transfer (QC): 88 Does the Patient Walk: Yes Walk 10 feet (QC): 6 Walk 50ft with 2 Turns (QC): 6 Walk 150 ft (QC): 6 Walking 10ft on Uneven Surface: 6 1 Step (curb) (QC): 4 4 Steps (QC): 4 12 Steps (QC): 88 Picking up an Object (QC): 6 Wheel 50 feet with 2 turns (QC: 6 Type: Manual Wheel 150 feet: 6 Type: Manual PT Plan Problem List Problem List: Activity Tolerance, Functional Strength, Safety, Balance, Gait, Transfer, Bed Mobility, ROM Treatment/Plan Treatment Plan: Continue Plan of Care Treatment Plan: Bed Mobility, Education, Functional Activity David, Functional Strength, Group Therapy, Gait, Safety, Therapeutic Exercise, Transfers Treatment Duration: November 14, 2021 Frequency: At least 5 of 7 days/Wk (IRF) Estimated Hrs Per Day: 1.5 hours per day Patient and/or Family Agrees t: Yes Safety Risks/Education Patient Education: Gait Training, Transfer Techniques, Reviewed Precautions, Correct Positioning, Reviewed Don/Doff Brace, Safety Issues Teaching Recipient: Patient Teaching Methods: Discussion Response to Teaching: Verbalize Understanding, Return Demonstration Time/GCodes Time In: 1000 Time Out: 1130 Total Billed Treatment Time: 90 Total Billed Treatment 1 visit GT 30min EX 30min FA 30min PHAM KERN PT Oct 28, 2021 11:27
--- NOTE | 2021-10-28 11:54 | Occupational Ther Daily Note ---
OT Current Status-Daily Note Subjective Pt sleeping at OT arrival, easy to waken, denies pain. Appearance Pt left sitting in recliner, all needs within reach. ADL-Treatment Therapy Code Descriptions/Definitions Functional [place] Measure: 0=Not Assessed/NA 4=Minimal Assistance 1=Total Assistance 5=Supervision or Setup 2=Maximal Assistance 6=Modified [place] 3=Moderate Assistance 7=Complete IndependenceSCALE: Activities may be completed with or without assistive devices. 8-Jycmwjycca-etdvhai completes the activity by him/herself with no assistance from a helper. 5-Set-up or Clean-up Assistance-helper sets up or cleans up; patient completes activity. [place] assists only prior to or following the activity. 4-Supervision or Touching Assistance-helper provides verbal cues and/or touching/steadying and/or contact guard assistance as patient completes activity. Assistance may be provided throughout the activity or intermittently. 3-Partial/Moderate Assistance-helper does LESS THAN HALF the effort. [place] lifts, holds or supports trunk or limbs, but provides less than half the effort. 2-Substantial/Maximal Assistance-helper does MORE THAN HALF the effort. [place] lifts or holds trunk or limbs and provides more than half the effort. 6-Sxofcfrbw-krfmpo does ALL the effort. Patient does none of the effort to complete the activity. Or, the assistance of 2 or more helpers is required for the patient to complete the activity. If activity was not attempted, code reason: 7-Patient Refused. 9-Not Applicable-not attempted and the patient did not perform the activity before the current illness, exacerbation or injury. 10-Not Attempted due to Environmental Limitations-(lack of equipment, weather restraints, etc.). 88-Not Attempted due to Medical Conditions or Safety Concerns. Other Treatment Pt participated in LUE exercises with 2# dumbbell. Focus on promoting increased strength and endurance for functional tasks/mobility. L shoulder fatigues ea sily, 1/2 reps modified to 90 degrees in order to maintain proper form. Cues for slow, controlled movement. Elbow flexion performed within available range. 12x2 all planes. Pt verbalizes that PT switched him from yany walker to cane but that he feels more sturdy on yany walker and would like to discharge home with walker. Pt denies expressing feelings/concerns to physical therapist. OT to notify PT. Education OT Patient Education: Correct positioning, Exercise program, Purpose of tx/functional activities Teaching Recipient: Patient Teaching Methods: Demonstration, Discussion Response to Teaching: Verbalize Understanding, Return Demonstration, Reinforcement Needed OT Short Term Goals Short Term Goals Time Frame: Nov 04, 2021 Eatin Oral hygiene: 4 Toileting hygiene: 3 Shower/bathe self: 3 Upper body dressin Lower body dressin Putting on/taking off footwear: 2 OT Assisted Goals Assisted Goals Time Frame: November 14, 2021 Eating (QC): 5 Oral Hygiene (QC): 5 Toileting Hygiene (QC): 6 Shower/Bathe Self (QC): 5 Upper Body Dressing (QC): 4 Lower Body Dressing (QC): 4 On/Off Footwear (QC): 4 1=Demonstrate adherence to instructed precautions during ADL tasks. 2=Patient will verbalize/demonstrate understanding of assistive devices/modifications for ADL. 3=Patient will improve strength/tolerance for activity to enable patient to perform ADL's. OT Education/Plan Problem List/Assessment Assessment: Decreased Activ Tolerance, Decreased UE Strength, Impaired Funct Balance, Impaired Self-Care Skills, Restricted Funct UE ROM Discharge Recommendations Plan/Recommendations: Continue POC Treatment Plan/Plan of Care Treatment,Training & Education: Yes Patient would benefit from OT for education, treatment and training to promote independence in ADL's, mobility, safety and/or upper extremity function for ADL's. Plan of Care: ADL Retraining, Functional Mobility, Group Exercise/Act as Ind, Orthotic Fitting/Training, UE Funct Exercise/Act, W/C Management Training Treatment Duration: November 14, 2021 Frequency: At least 5 of 7 days/Wk (IRF) Estimated Hrs Per Day: 1.5 hours per day (60-90 min/day) Agreement: Yes Rehab Potential: Fair Time/GCodes Start Time: 11:30 Stop Time: 11:55 Total Time Billed (hr/min): 25 Billed Treatment Time 1 visit EX Sydnie Mendoza OT Oct 28, 2021 11:54
[2021-10-28] MEDS: ARTIFICAL TEARS 0.4 ML UNIT DOSE (REFRESH PLUS) OU PRN ×3 (13:04→20:43)
[2021-10-28 19:23] VITALS: BP 129/56
[2021-10-28] MEDS: FINASTERIDE (PROSCAR) 5 MG TAB PO SCH (20:37)
[2021-10-28] MEDS: PANTOPRAZOLE 40 MG (PROTONIX) TAB PO SCH (20:37)
[2021-10-29] MEDS: MULTIVIT W/MINERALS TAB (THERAGRAN M) PO SCH (06:35)
[2021-10-29] MEDS: LEVOTHYROXINE 75 MCG (LEVOTHROID) TABLET PO SCH (06:35)
[2021-10-29] MEDS: LEVOTHYROXINE 100 MCG (LEVOTHROID) TAB PO SCH (06:35)
--- NOTE | 2021-10-29 06:46 | PM&R Progress Note ---
Subjective HPI/CC On Admission Date Seen by Provider: Oct 29, 2021 Time Seen by Provider: 09:30 Subjective/Events-last exam 10/29/2021: Pt still hasn't had a bowel movement it has been 6 days Taking laxatives No other issues Refused SLUMS score, so it appears he has some cognitive difficulty In quiet denial about his ability to manage things at home 10/28/2021: Pt is doing really well Still needing a lot of assistance to help him Reports that he wants to go home as soon as possible but he is just not performing well and we need to inform him of this No bowel movement since 10/23 so laxatives given 10/27/21: Patient doing well Colace given Cranky at times No pain at this current time 10/26/21: Patient feeling a lot better Working on balance Pain is controlled on oxycodone Supportive care will continue Wants to go home soon This patient has a mobility limitation that significantly impairs his ability to participate in mobility-related activities of daily living that cannot be adequately or safely addressed by a cane. This patient is able to safely use the yany walker. The functional mobility deficit can be sufficiently resolved with use of a yany walker. 10/25/2021: Patient doing really well Wants to go home soon Patient had 2 near falls during therapy indicating he really needs to stay Cardiology consulted Pain is pretty well controlled on oxycodone but hydrocodone makes him delirious Review of Systems General: Fatigue, Malaise Neurological: Weakness, Incoordination Objective Exam Vital Signs Vital Signs Date Time Temp Pulse Resp B/P (MAP) Pulse Ox O2 Delivery O2 Flow Rate FiO2 10/29/21 20:00 Room Air 10/29/21 19:21 36.8 73 16 138/64 (88) 92 10/29/21 08:58 2.00 Capillary Refill : General Appearance: No Apparent Distress, WD/WN, Chronically ill HEENT: PERRL/EOMI, Normal ENT Inspection, Pharynx Normal Neck: Full Range of Motion, Normal Inspection, Non Tender, Supple, Carotid Bruit Respiratory: Chest Non Tender, Lungs Clear, Normal Breath Sounds, No Accessory Muscle Use, No Respiratory Distress Cardiovascular: Regular Rate, Rhythm, No Edema, No Gallop, No JVD, No Murmur, Normal Peripheral Pulses Gastrointestinal: Normal Bowel Sounds, No Organomegaly, No Pulsatile Mass, Non Tender, Soft Back: Normal Inspection, No CVA Tenderness, No Vertebral Tenderness Extremity: Normal Capillary Refill, Normal Inspection, Normal Range of Motion (Except for right arm and right leg), Non Tender, No Calf Tenderness, No Pedal Edema Neurologic/Psychiatric: Alert, Oriented x3, No Motor/Sensory Deficits, Normal Mood/Affect, budget examiner II-XII Norm as Tested, Abnormal Gait, Motor Weakness (Generalized) Skin: Normal Color, Warm/Dry Lymphatic: No Adenopathy Results/Procedures Lab Patient resulted labs reviewed. FIM Transfers Therapy Code Descriptions/Definitions Functional [place] Measure: 0=Not Assessed/NA 4=Minimal Assistance 1=Total Assistance 5=Supervision or Setup 2=Maximal Assistance 6=Modified [place] 3=Moderate Assistance 7=Complete IndependenceSCALE: Activities may be completed with or without assistive devices. 0-Gxlmphcmch-fnusmgy completes the activity by him/herself with no assistance from a helper. 5-Set-up or Clean-up Assistance-helper sets up or cleans up; patient completes activity. [place] assists only prior to or following the activity. 4-Supervision or Touching Assistance-helper provides verbal cues and/or touching/steadying and/or contact guard assistance as patient completes activity. Assistance may be provided throughout the activity or intermittently. 3-Partial/Moderate Assistance-helper does LESS THAN HALF the effort. [place] lifts, holds or supports trunk or limbs, but provides less than half the effort. 2-Substantial/Maximal Assistance-helper does MORE THAN HALF the effort. [place] lifts or holds trunk or limbs and provides more than half the effort. 7-Vwroddvdn-lmjyqo does ALL the effort. Patient does none of the effort to complete the activity. Or, the assistance of 2 or more helpers is required for the patient to complete the activity. If activity was not attempted, code reason: 7-Patient Refused. 9-Not Applicable-not attempted and the patient did not perform the activity before the current illness, exacerbation or injury. 10-Not Attempted due to Environmental Limitations-(lack of equipment, weather restraints, etc.). 88-Not Attempted due to Medical Conditions or Safety Concerns. Roll Left to Right (QC): 4 Sit to Lying (QC): 3 Sit to Stand (QC): 3 Chair/Rog-ie-Uynkn Xfer(QC): 3 Car Transfer (QC): 88 Gait Training Does the Patient Walk?: Yes Distance: 150', 150', 60' Walk 10 feet (QC): 4 (CGA) Walk 50 ft with 2 Turns(QC): 4 (CGA) Walk 150 ft (QC): 4 (CGA) Walking 10ft/uneven surface-QC: 4 Gait Persons Needed: 1 Gait Assistive Device: Cane Large Base Quad Wheelchair Training Does the Pt Use a Wheelchair?: No Distance: 50', 30' Wheel 50 ft with 2 turns (QC): 3 Wheel 150 ft (QC): 88 Stair Training #of Steps: 1 1 Step (curb) (QC): 4 4 Steps (QC): 88 12 Steps (QC): 88 Balance Picking up an Object (QC): 4 (using differential tester) ADL-Treatment Eating (QC): 4 Oral Hygiene (QC): 5 Shower/Bathe Self (QC): 3 (min) Upper Body Dressing (QC): 3 (min) Lower Body Dressing (QC): 3 On/Off Footwear (QC): 1 Toileting Hygiene (QC): 3 Toilet Transfer (QC): 3 Assessment/Plan Assessment and Plan Assess & Plan/Chief Complaint Assessment: Fall Proximal right humerus fracture Right patellar fracture Atrial fibrillation presumed not an anticoagulation candidate due to fall risk? Consulting cardiology CAD previous triple bypass Hypertension Hyperlipidemia Hypothyroidism Constipation Cognitive deficit but refuses slums score Plan: Pain control PT and OT Assistive devices Cardiology consult Orthopedic consult 10/25/2021: Supportive care Pain control with oxycodone 10/26/2021: Supportive care Oxycodone Hemiwalker 10/27/21: Monitor pain Monitor BP 10/28/2021: Constipation regimen Explained he cannot go home when he needs this much assistance he seems to be in denial 10/29/2021: Aggressive rehab Cognitive deficit noted (1) Coronary artery disease without angina pectoris Assessment & Plan: He is not having any angina. He is on aspirin, prasugrel and long-acting nitrates. He states that he had a stent well over 1 year ago. I suggested that he might want to speak with his regular senior electronics engineer about stopping prasugrel sometime in the future. Ongoing use of prasugrel could put him at increased risk of hemorrhagic side effects. We do not typically use prasugrel for prolonged dual antiplatelet therapy. (2) Paroxysmal atrial fibrillation Assessment & Plan: He believes he has been in sinus rhythm on amiodarone. He has been on this for a number of years. It was actually started by Dr. Solomon many years ago. I decreased the dose from 200 mg to 100 mg daily to help reduce the risk of long-term, irreversible toxic side effects. For unclear reasons, he is not on a DOAC. (3) Primary hypertension Assessment & Plan: Blood pressure appears reasonably controlled with losartan and amlodipine. (4) Mixed hyperlipidemia Assessment & Plan: He has an apparent history of hyperlipidemia but is not on a statin medication. His LDL level is actually quite low. I will hold off on adding a statin medication at this time. He can discuss this with his regular senior electronics engineer at the outside facility following discharge. ELLIS KING DO Oct 29, 2021 06:46
[2021-10-29 07:27] VITALS: BP 123/61
[2021-10-29] MEDS: FERROUS SULFATE ORAL LIQUID 44 MG/ML ML PO SCH (07:58)
[2021-10-29] MEDS: ISOSORBIDE MONONITRATE 60 MG (IMDUR) TAB PO SCH ×2 (07:58→19:34)
[2021-10-29] MEDS: buPROPion SR 150 MG (WELLBUTRIN SR) TAB PO SCH ×2 (07:59→19:34)
[2021-10-29] MEDS: PRASUGREL 10 MG (EFFIENT) TABLET PO SCH (07:59)
[2021-10-29] MEDS: SENNA W/DOCUSATE (SENOKOT S) TABLET PO SCH ×2 (07:59→19:33)
[2021-10-29] MEDS: amLODIPine 5 MG (NORVASC) TAB PO SCH (07:59)
[2021-10-29] MEDS: DOCUSATE SODIUM 100 MG (COLACE) CAP PO SCH ×2 (07:59→19:34)
[2021-10-29] MEDS: LOSARTAN 100 MG (COZAAR) TABLET PO SCH (08:00)
[2021-10-29] MEDS: polyethylene glycoL POWDER 17 GM (MIRALAX) PACK PO SCH ×2 (08:00→19:35)
[2021-10-29] MEDS: ARTIFICAL TEARS 0.4 ML UNIT DOSE (REFRESH PLUS) OU PRN (08:01)
[2021-10-29] MEDS: ASPIRIN E.C. 81 MG (ECOTRIN) TAB PO SCH (08:03)
[2021-10-29] MEDS: AMIODARONE 200 MG (CORDARONE) TAB PO SCH (08:04)
--- NOTE | 2021-10-29 09:47 | Occupational Ther Daily Note ---
OT Current Status-Daily Note Subjective Pt really wanting to go home, reports no one is telling him when he can leave. Appearance Pt left sitting in recliner, all needs within reach at OT departure. Mental Status/Objective Patient Orientation: Person, Place, Situation Attachments: Knee Immobilizer, Other-See Comments (CRISTAE sling) ADL-Treatment Therapy Code Descriptions/Definitions Functional [place] Measure: 0=Not Assessed/NA 4=Minimal Assistance 1=Total Assistance 5=Supervision or Setup 2=Maximal Assistance 6=Modified [place] 3=Moderate Assistance 7=Complete IndependenceSCALE: Activities may be completed with or without assistive devices. 5-Cxbknizzzq-iggdpzz completes the activity by him/herself with no assistance from a helper. 5-Set-up or Clean-up Assistance-helper sets up or cleans up; patient completes activity. [place] assists only prior to or following the activity. 4-Supervision or Touching Assistance-helper provides verbal cues and/or touching/steadying and/or contact guard assistance as patient completes activity. Assistance may be provided throughout the activity or intermittently. 3-Partial/Moderate Assistance-helper does LESS THAN HALF the effort. [place] lifts, holds or supports trunk or limbs, but provides less than half the effort. 2-Substantial/Maximal Assistance-helper does MORE THAN HALF the effort. [place] lifts or holds trunk or limbs and provides more than half the effort. 9-Thvxlmgyw-ilpwtn does ALL the effort. Patient does none of the effort to complete the activity. Or, the assistance of 2 or more helpers is required for the patient to complete the activity. If activity was not attempted, code reason: 7-Patient Refused. 9-Not Applicable-not attempted and the patient did not perform the activity before the current illness, exacerbation or injury. 10-Not Attempted due to Environmental Limitations-(lack of equipment, weather restraints, etc.). 88-Not Attempted due to Medical Conditions or Safety Concerns. Eating (QC): 5 Oral Hygiene (QC): 5 On/Off Footwear: 2 Other Treatment Supine>sit: SBA, extra time to transition LLE off side of bed. Sit<>stand: SBA for cues on correct hand placement. Pt ambulated within room with use of quad cane and close SBA for safety. Slow but steady gait. Grooming tasks performed seated in recliner with set up assist. Extra time needed to complete secondary to only having one functional UE. Remainder of session focused on one handed techniques, flexibility, compensatory/adaptive strategies and increasing indep with use of green building architect in order to perform adls. While seated, pt participated in functional task with clothespins to simulate reaching during LB dressing/bathing. Pt removed 10 clothespins x2 placed strategically on LE's. Pt unable to remove pins placed more distally (from ankle to toes) on LLE (leg with immobolizer). He was able to pull clothespins off without assist when cued to use green building architect. For RLE, OT had pt place foot onto chair which helped him to reach feet better. Instruction on 1 handed technique to don socks, yet pt unsuccessful due to limited flexibility. OT assisted with donning sock over toes, pt was able to dross puller heels. Per social work, Pt's significant other Kathleen requested to speak with therapy regarding education and training for showers and adls post discharge. OT met with Kathleen 10/28/21 regarding previous noted topics. OT recommending sponge bath at time of discharge as pt is unable to tolerate more than >3-4 minutes with sling doffed. He will also have to keep immobolizer on until doctor discharges it. OT asked Kathleen if there was a time she wanted to come in for training during adls but S.O. did not seem interested. She did not having any questions regarding specific adls and instead just wanted therapy to know that she cannot provide any physical assistance. OT attempts at educating on what assistance pt may need. She does not verbalize any concerns. Education OT Patient Education: Correct positioning, Energy conservation, Modified ADL techniques, Progress toward Goal/Update tx plan, Purpose of tx/functional activities, Safety issues, Transfer techniques, Use of adapted equipment Teaching Recipient: Patient Teaching Methods: Demonstration, Discussion Response to Teaching: Verbalize Understanding, Return Demonstration OT Short Term Goals Short Term Goals Time Frame: Nov 04, 2021 Eatin Oral hygiene: 4 Toileting hygiene: 3 Shower/bathe self: 3 Upper body dressin Lower body dressin Putting on/taking off footwear: 2 OT Longterm Goals Longterm Goals Time Frame: November 14, 2021 Eating (QC): 5 Oral Hygiene (QC): 5 Toileting Hygiene (QC): 6 Shower/Bathe Self (QC): 5 Upper Body Dressing (QC): 4 Lower Body Dressing (QC): 4 On/Off Footwear (QC): 4 1=Demonstrate adherence to instructed precautions during ADL tasks. 2=Patient will verbalize/demonstrate understanding of assistive devices/modifications for ADL. 3=Patient will improve strength/tolerance for activity to enable patient to perform ADL's. OT Education/Plan Problem List/Assessment Assessment: Decreased UE Strength, Impaired Cognition, Impaired Funct Balance, Impaired I ADL's, Impaired Self-Care Skills, Restricted Funct UE ROM Discharge Recommendations Plan/Recommendations: Continue POC Equpiment Recommendations-D/C: Evp Chief Exploration Officer Treatment Plan/Plan of Care Treatment,Training & Education: Yes Patient would benefit from OT for education, treatment and training to promote independence in ADL's, mobility, safety and/or upper extremity function for ADL's. Plan of Care: ADL Retraining, Functional Mobility, Group Exercise/Act as Ind, Orthotic Fitting/Training, UE Funct Exercise/Act, W/C Management Training Treatment Duration: November 14, 2021 Frequency: At least 5 of 7 days/Wk (IRF) Estimated Hrs Per Day: 1.5 hours per day (60-90 min/day) Agreement: Yes Rehab Potential: Fair Time/GCodes Start Time: 08:55 Stop Time: 09:45 Total Time Billed (hr/min): 50 Billed Treatment Time 1 visit ADL (20 min) FA x2 (30 min) Sydnie Shine OT Oct 29, 2021 09:47
[2021-10-29] MEDS ORDERED: PATIENT MAY USE OWN MED,SINGLE MED PO SCH (10:00)
--- NOTE | 2021-10-29 10:55 | Physical Therapy Daily Note ---
PT Daily Note-Current Subjective Patient reported feeling good today and compliant to start treatment. Pain Location: No Pain Reported Mental Status Patient Orientation: Person, Place, Time, Situation Transfers SCALE: Activities may be completed with or without assistive devices. 3-Dlubhepfrp-vhqfnmf completes the activity by him/herself with no assistance from a helper. 5-Set-up or Clean-up Assistance-helper sets up or cleans up; patient completes activity. [place] assists only prior to or following the activity. 4-Supervision or Touching Assistance-helper provides verbal cues and/or touching/steadying and/or contact guard assistance as patient completes activity. Assistance may be provided throughout the activity or intermittently. 3-Partial/Moderate Assistance-helper does LESS THAN HALF the effort. [place] lifts, holds or supports trunk or limbs, but provides less than half the effort. 2-Substantial/Maximal Assistance-helper does MORE THAN HALF the effort. [place] lifts or holds trunk or limbs and provides more than half the effort. 2-Yjprpyqaq-flzaok does ALL the effort. Patient does none of the effort to complete the activity. Or, the assistance of 2 or more helpers is required for the patient to complete the activity. If activity was not attempted, code reason: 7-Patient Refused. 9-Not Applicable-not attempted and the patient did not perform the activity before the current illness, exacerbation or injury. 10-Not Attempted due to Environmental Limitations-(lack of equipment, weather restraints, etc.). 88-Not Attempted due to Medical Conditions or Safety Concerns. Sit to Stand (QC): 3 Weight Bearing Right Lower Extremity: Right Full Weight Bearing Left Lower Extremity: Left Weight Bearing/Tolerated RUE in sling and NWB, LLE in knee immobilizer Gait Training Does the Patient Walk?: Yes Distance: 150', 150', 40' Walk 10 feet (QC): 4 Walk 50 ft with 2 Turns(QC): 4 Walk 150 ft (QC): 4 Gait Assistive Device: Cane Large Base Quad L knee immobilizer. Quad cane on left side. Step through pattern. slow paced. Wheelchair Training Does the Pt Use a Wheelchair?: No Exercises Standin way Ex=Flex, Abd, Ext Standing Reps: 20 NuStep Minutes: 15 NuStep Workload: 4 Treatments LE strengthening, mobility, ambulation, balance Assessment Current Status: Good Progress Patient can tolerate distances up to 150' before needing a rest break with CGA, and is usually pretty steady. Patient's balance has been improving with use of the quad cane, patient stated he feels safer with the hemiwalker. Patient demonstrated improved strength with LE exercises and was able to tolerate more reps before needing a rest break. Patient has some weakness with sit to stand transfers sometimes requiring min assist and others requiring CGA. Patient is compliant with knee precautions. Patient was left in chair with call light, tray, and all needs met. PT Short Term Goals Short Term Goals Time Frame: Oct 31, 2021 Roll Left & Right: 4 Sit to lyin Lying to sitting on side of be: 4 (SBA) Sit to stand: 3 Chair/rks-qd-vnnnn transfer: 3 Toilet transfer: 3 Car transfer: 3 Walk 10 feet: 4 Walk 50 feet with two turns: 4 Walk 150 feet: 4 PT Mcfp Goals Mcfp Goals PT Hydrochloric Acid Operator Goals Time Frame: November 14, 2021 Roll Left & Right (QC): 6 Sit to Lying (QC): 6 Lying-Sitting on Side/Bed(QC): 6 Sit to Stand (QC): 4 (SBA) Chair/Fsi-la-Wicjs Xfer(QC): 4 (SBA) Toilet Transfer (QC): 4 (SBA) Car Transfer (QC): 88 Does the Patient Walk: Yes Walk 10 feet (QC): 6 Walk 50ft with 2 Turns (QC): 6 Walk 150 ft (QC): 6 Walking 10ft on Uneven Surface: 6 1 Step (curb) (QC): 4 4 Steps (QC): 4 12 Steps (QC): 88 Picking up an Object (QC): 6 Wheel 50 feet with 2 turns (QC: 6 Type: Manual Wheel 150 feet: 6 Type: Manual PT Plan Problem List Problem List: Activity Tolerance, Functional Strength, Safety, Balance, Gait, Transfer, Bed Mobility, ROM Treatment/Plan Treatment Plan: Continue Plan of Care Treatment Plan: Bed Mobility, Education, Functional Activity David, Functional Strength, Group Therapy, Gait, Safety, Therapeutic Exercise, Transfers Treatment Duration: November 14, 2021 Frequency: At least 5 of 7 days/Wk (IRF) Estimated Hrs Per Day: 1.5 hours per day Patient and/or Family Agrees t: Yes Safety Risks/Education Patient Education: Gait Training, Transfer Techniques, W/C Management, Safety Issues Teaching Recipient: Patient Teaching Methods: Demonstration, Discussion Response to Teaching: Reinforcement Needed Time/GCodes Time In: 1000 Time Out: 1100 Total Billed Treatment Time: 60 Total Billed Treatment 1 visit EX 30' FA 30' PHAM KERN PT Oct 29, 2021 10:55
--- NOTE | 2021-10-29 13:39 | Physical Therapy Daily Note ---
PT Daily Note-Current Subjective Patient had no new complaints this afternoon and consented to treatment Pain Location: No Pain Reported Mental Status Patient Orientation: Person, Place, Time, Situation Transfers SCALE: Activities may be completed with or without assistive devices. 8-Eoemdqvnxr-icrlijz completes the activity by him/herself with no assistance fr om a helper. 5-Set-up or Clean-up Assistance-helper sets up or cleans up; patient completes activity. [place] assists only prior to or following the activity. 4-Supervision or Touching Assistance-helper provides verbal cues and/or touching/steadying and/or contact guard assistance as patient completes activity. Assistance may be provided throughout the activity or intermittently. 3-Partial/Moderate Assistance-helper does LESS THAN HALF the effort. [place] lifts, holds or supports trunk or limbs, but provides less than half the effort. 2-Substantial/Maximal Assistance-helper does MORE THAN HALF the effort. [place] lifts or holds trunk or limbs and provides more than half the effort. 9-Mnawgemfy-lrjmvu does ALL the effort. Patient does none of the effort to complete the activity. Or, the assistance of 2 or more helpers is required for the patient to complete the activity. If activity was not attempted, code reason: 7-Patient Refused. 9-Not Applicable-not attempted and the patient did not perform the activity before the current illness, exacerbation or injury. 10-Not Attempted due to Environmental Limitations-(lack of equipment, weather restraints, etc.). 88-Not Attempted due to Medical Conditions or Safety Concerns. Sit to Stand (QC): 3 Weight Bearing Right Lower Extremity: Right Full Weight Bearing Left Lower Extremity: Left Weight Bearing/Tolerated RUE in sling and NWB, LLE in knee immobilizer Gait Training Does the Patient Walk?: Yes Distance: 150', 150' Walk 10 feet (QC): 4 (CGA) Walk 50 ft with 2 Turns(QC): 4 (CGA) Walk 150 ft (QC): 4 (CGA) Gait Assistive Device: Cane Large Base Quad Exercises Standing: Sit to Stand Standing Reps: 5 Treatments Ambulation, mobility, transfers Assessment Current Status: Good Progress Patient tolerated exercises well today. Patient still has some weakness with sit to stands, and requires min assist at times standing from a standard height chair. Patient can stand easily with CGA from a chair that is slightly elevated. Patient trialed a new arm sling today and seemed to be working pretty well. Patient states that the other sling was too uncomfortable, and that this one was better. Will continue to check on how the sling is fitting. Patient was left in chair with call light, tray, and all needs met. PT Short Term Goals Short Term Goals Time Frame: Oct 31, 2021 Roll Left & Right: 4 Sit to lyin Lying to sitting on side of be: 4 (SBA) Sit to stand: 3 Chair/sfe-fl-nwdsy transfer: 3 Toilet transfer: 3 Car transfer: 3 Walk 10 feet: 4 Walk 50 feet with two turns: 4 Walk 150 feet: 4 PT Mcc Goals Mcc Goals PT [facility] Goals Time Frame: November 14, 2021 Roll Left & Right (QC): 6 Sit to Lying (QC): 6 Lying-Sitting on Side/Bed(QC): 6 Sit to Stand (QC): 4 (SBA) Chair/Mfo-yl-Cpgeb Xfer(QC): 4 (SBA) Toilet Transfer (QC): 4 (SBA) Car Transfer (QC): 88 Does the Patient Walk: Yes Walk 10 feet (QC): 6 Walk 50ft with 2 Turns (QC): 6 Walk 150 ft (QC): 6 Walking 10ft on Uneven Surface: 6 1 Step (curb) (QC): 4 4 Steps (QC): 4 12 Steps (QC): 88 Picking up an Object (QC): 6 Wheel 50 feet with 2 turns (QC: 6 Type: Manual Wheel 150 feet: 6 Type: Manual PT Plan Problem List Problem List: Activity Tolerance, Functional Strength, Safety, Balance, Gait, Transfer, Bed Mobility, ROM Treatment/Plan Treatment Plan: Continue Plan of Care Treatment Plan: Bed Mobility, Education, Functional Activity David, Functional Strength, Group Therapy, Gait, Safety, Therapeutic Exercise, Transfers Treatment Duration: November 14, 2021 Frequency: At least 5 of 7 days/Wk (IRF) Estimated Hrs Per Day: 1.5 hours per day Patient and/or Family Agrees t: Yes Safety Risks/Education Patient Education: Gait Training, Transfer Techniques, Correct Positioning, Safety Issues Teaching Recipient: Patient Teaching Methods: Discussion Response to Teaching: Verbalize Understanding Time/GCodes Time In: 1300 Time Out: 1330 Total Billed Treatment Time: 30 Total Billed Treatment 1 visit GT 20min EX 10min PHAM KERN PT Oct 29, 2021 13:39
--- NOTE | 2021-10-29 14:12 | Occupational Ther Daily Note ---
OT Current Status-Daily Note Subjective Pt alert, sitting in recliner with daughter present in room whe VALLADARES entered. Pt agreed to therapy. Pt reported pain in R shoulder, nrsing notified and meds taken. Mental Status/Objective Patient Orientation: Person, Place, Time, Situation ADL-Treatment Therapy Code Descriptions/Definitions Functional [place] Measure: 0=Not Assessed/NA 4=Minimal Assistance 1=Total Assistance 5=Supervision or Setup 2=Maximal Assistance 6=Modified [place] 3=Moderate Assistance 7=Complete IndependenceSCALE: Activities may be completed with or without assistive devices. 9-Qcgdgezdeh-krrragk completes the activity by him/herself with no assistance from a helper. 5-Set-up or Clean-up Assistance-helper sets up or cleans up; patient completes activity. [place] assists only prior to or following the activity. 4-Supervision or Touching Assistance-helper provides verbal cues and/or touching/steadying and/or contact guard assistance as patient completes activity. Assistance may be provided throughout the activity or intermittently. 3-Partial/Moderate Assistance-helper does LESS THAN HALF the effort. [place] lifts, holds or supports trunk or limbs, but provides less than half the effort. 2-Substantial/Maximal Assistance-helper does MORE THAN HALF the effort. [place] lifts or holds trunk or limbs and provides more than half the effort. 5-Dcihycbdh-zvbmoz does ALL the effort. Patient does none of the effort to complete the activity. Or, the assistance of 2 or more helpers is required for the patient to complete the activity. If activity was not attempted, code reason: 7-Patient Refused. 9-Not Applicable-not attempted and the patient did not perform the activity before the current illness, exacerbation or injury. 10-Not Attempted due to Environmental Limitations-(lack of equipment, weather restraints, etc.). 88-Not Attempted due to Medical Conditions or Safety Concerns. Other Treatment Pt completed x5 rows of reaching LUE to grasp pegs and place them onto peg board with 1lb weight around wrist to increase BUE ROM and FM skills for improved independence with ADLs. Pt tolerated activity well and demonstrated good FM skills. Pt required skill instruction of LUE 2lb weighted exercises for correct completion. Pt completed x2 sets of 10 reps of LUE exercises of elbow flexion, shoulder flexion, shoulder abduction, internal rotation, and wrist flexion. Pt demonstrated good technique and required 1 resting break in between set due to low activity tolerance. After session, pt sitting in recliner. Call light in reach and all needs met. Education OT Patient Education: Correct positioning, Energy conservation, Exercise program, Home exercise program, Purpose of tx/functional activities Teaching Recipient: Patient Teaching Methods: Demonstration, Discussion Response to Teaching: Verbalize Understanding, Return Demonstration OT Short Term Goals Short Term Goals Time Frame: Nov 04, 2021 Eatin Oral hygiene: 4 Toileting hygiene: 3 Shower/bathe self: 3 Upper body dressin Lower body dressin Putting on/taking off footwear: 2 OT Land Development Manager Goals Land Development Manager Goals Time Frame: November 14, 2021 Eating (QC): 5 Oral Hygiene (QC): 5 Toileting Hygiene (QC): 6 Shower/Bathe Self (QC): 5 Upper Body Dressing (QC): 4 Lower Body Dressing (QC): 4 On/Off Footwear (QC): 4 1=Demonstrate adherence to instructed precautions during ADL tasks. 2=Patient will verbalize/demonstrate understanding of assistive devices/modifications for ADL. 3=Patient will improve strength/tolerance for activity to enable patient to perform ADL's. OT Education/Plan Problem List/Assessment Assessment: Decreased Activ Tolerance, Decreased UE Strength, Impaired I ADL's, Impaired Self-Care Skills Discharge Recommendations Plan/Recommendations: Continue POC Treatment Plan/Plan of Care Patient would benefit from OT for education, treatment and training to promote independence in ADL's, mobility, safety and/or upper extremity function for ADL's. Plan of Care: ADL Retraining, Functional Mobility, Group Exercise/Act as Ind, Orthotic Fitting/Training, UE Funct Exercise/Act, W/C Management Training Treatment Duration: November 14, 2021 Frequency: At least 5 of 7 days/Wk (IRF) Estimated Hrs Per Day: 1.5 hours per day (60-90 min/day) Agreement: Yes Rehab Potential: Fair Time/GCodes Start Time: 13:30 Stop Time: 14:10 Total Time Billed (hr/min): 40 Billed Treatment Time 1 visit- FA 1 (12 mins) EX 2 (28 mins) COTY SANTANA Oct 29, 2021 14:12
[2021-10-29 19:21] VITALS: BP 138/64
[2021-10-29] MEDS: PANTOPRAZOLE 40 MG (PROTONIX) TAB PO SCH (19:34)
[2021-10-29] MEDS: FINASTERIDE (PROSCAR) 5 MG TAB PO SCH (19:34)
--- NOTE | 2021-10-30 06:10 | PM&R Progress Note ---
Subjective HPI/CC On Admission Date Seen by Provider: Oct 30, 2021 Time Seen by Provider: 09:30 Subjective/Events-last exam 10/30/21: Pt is doing a lot better Eyedrops making his eyes feel better Bowels moved yesterday finally Will discharge on Major cognitive deficit but refuses to answer any memory test questions 10/29/2021: Pt still hasn't had a bowel movement it has been 6 days Taking laxatives No other issues Refused SLUMS score, so it appears he has some cognitive difficulty In quiet denial about his ability to manage things at home 10/28/2021: Pt is doing really well Still needing a lot of assistance to help him Reports that he wants to go home as soon as possible but he is just not performing well and we need to inform him of this No bowel movement since 10/23 so laxatives given 10/27/21: Patient doing well Colace given Cranky at times No pain at this current time 10/26/21: Patient feeling a lot better Working on balance Pain is controlled on oxycodone Supportive care will continue Wants to go home soon This patient has a mobility limitation that significantly impairs his ability to participate in mobility-related activities of daily living that cannot be adequately or safely addressed by a cane. This patient is able to safely use the yany walker. The functional mobility deficit can be sufficiently resolved with use of a yany walker. 10/25/2021: Patient doing really well Wants to go home soon Patient had 2 near falls during therapy indicating he really needs to stay Cardiology consulted Pain is pretty well controlled on oxycodone but hydrocodone makes him delirious Review of Systems General: Fatigue, Malaise Objective Exam Vital Signs Vital Signs Date Time Temp Pulse Resp B/P (MAP) Pulse Ox O2 Delivery O2 Flow Rate FiO2 10/30/21 20:40 Room Air 10/30/21 19:43 36.7 70 16 136/65 (88) 92 10/29/21 08:58 2.00 Capillary Refill : General Appearance: No Apparent Distress, WD/WN, Chronically ill HEENT: PERRL/EOMI, Normal ENT Inspection, Pharynx Normal Neck: Full Range of Motion, Normal Inspection, Non Tender, Supple, Carotid Bruit Respiratory: Chest Non Tender, Lungs Clear, Normal Breath Sounds, No Accessory Muscle Use, No Respiratory Distress Cardiovascular: Regular Rate, Rhythm, No Edema, No Gallop, No JVD, No Murmur, Normal Peripheral Pulses Gastrointestinal: Normal Bowel Sounds, No Organomegaly, No Pulsatile Mass, Non Tender, Soft Back: Normal Inspection, No CVA Tenderness, No Vertebral Tenderness Extremity: Normal Capillary Refill, Normal Inspection, Normal Range of Motion (Except for right arm and right leg), Non Tender, No Calf Tenderness, No Pedal Edema Neurologic/Psychiatric: Alert, Oriented x3, No Motor/Sensory Deficits, Normal Mood/Affect, child development consultant II-XII Norm as Tested, Abnormal Gait, Motor Weakness (Generalized) Skin: Normal Color, Warm/Dry Lymphatic: No Adenopathy Results/Procedures Lab Patient resulted labs reviewed. FIM Transfers Therapy Code Descriptions/Definitions Functional [place] Measure: 0=Not Assessed/NA 4=Minimal Assistance 1=Total Assistance 5=Supervision or Setup 2=Maximal Assistance 6=Modified [place] 3=Moderate Assistance 7=Complete IndependenceSCALE: Activities may be completed with or without assistive devices. 4-Onkvupmwkn-mvpkfzk completes the activity by him/herself with no assistance from a helper. 5-Set-up or Clean-up Assistance-helper sets up or cleans up; patient completes activity. [place] assists only prior to or following the activity. 4-Supervision or Touching Assistance-helper provides verbal cues and/or touching/steadying and/or contact guard assistance as patient completes activity. Assistance may be provided throughout the activity or intermittently. 3-Partial/Moderate Assistance-helper does LESS THAN HALF the effort. [place] lifts, holds or supports trunk or limbs, but provides less than half the effort. 2-Substantial/Maximal Assistance-helper does MORE THAN HALF the effort. [place] lifts or holds trunk or limbs and provides more than half the effort. 1-Plmvlnqqm-rpkhff does ALL the effort. Patient does none of the effort to complete the activity. Or, the assistance of 2 or more helpers is required for the patient to complete the activity. If activity was not attempted, code reason: 7-Patient Refused. 9-Not Applicable-not attempted and the patient did not perform the activity before the current illness, exacerbation or injury. 10-Not Attempted due to Environmental Limitations-(lack of equipment, weather restraints, etc.). 88-Not Attempted due to Medical Conditions or Safety Concerns. Roll Left to Right (QC): 4 Sit to Lying (QC): 3 Sit to Stand (QC): 3 Chair/Dtf-wu-Ccnpk Xfer(QC): 3 Car Transfer (QC): 88 Gait Training Does the Patient Walk?: Yes Distance: 150', 150' Walk 10 feet (QC): 4 (CGA) Walk 50 ft with 2 Turns(QC): 4 (CGA) Walk 150 ft (QC): 4 (CGA) Walking 10ft/uneven surface-QC: 4 Gait Persons Needed: 1 Gait Assistive Device: Cane Large Base Quad Wheelchair Training Does the Pt Use a Wheelchair?: No Distance: 50', 30' Wheel 50 ft with 2 turns (QC): 3 Wheel 150 ft (QC): 88 Stair Training #of Steps: 1 1 Step (curb) (QC): 4 4 Steps (QC): 88 12 Steps (QC): 88 Balance Picking up an Object (QC): 4 (using switch engineer) ADL-Treatment Eating (QC): 5 Oral Hygiene (QC): 5 Shower/Bathe Self (QC): 3 (min) Upper Body Dressing (QC): 3 (min) Lower Body Dressing (QC): 3 On/Off Footwear (QC): 2 Toileting Hygiene (QC): 3 Toilet Transfer (QC): 3 Assessment/Plan Assessment and Plan Assess & Plan/Chief Complaint Assessment: Fall Proximal right humerus fracture Right patellar fracture Atrial fibrillation presumed not an anticoagulation candidate due to fall risk? Consulting cardiology CAD previous triple bypass Hypertension Hyperlipidemia Hypothyroidism Constipation Cognitive deficit but refuses slums score Plan: Pain control PT and OT Assistive devices Cardiology consult Orthopedic consult 10/25/2021: Supportive care Pain control with oxycodone 10/26/2021: Supportive care Oxycodone Hemiwalker 10/27/21: Monitor pain Monitor BP 10/28/2021: Constipation regimen Explained he cannot go home when he needs this much assistance he seems to be in denial 10/29/2021: Aggressive rehab Cognitive deficit noted 10/30/2021: Discharge home tomorrow (1) Coronary artery disease without angina pectoris Assessment & Plan: He is not having any angina. He is on aspirin, prasugrel and long-acting nitrates. He states that he had a stent well over 1 year ago. I suggested that he might want to speak with his regular protozoologist about stopping prasugrel sometime in the future. Ongoing use of prasugrel could put him at increased risk of hemorrhagic side effects. We do not typically use prasugrel for prolonged dual antiplatelet therapy. (2) Paroxysmal atrial fibrillation Assessment & Plan: He believes he has been in sinus rhythm on amiodarone. He has been on this for a number of years. It was actually started by Dr. Solomon many years ago. I decreased the dose from 200 mg to 100 mg daily to help reduce the risk of long-term, irreversible toxic side effects. For unclear reasons, he is not on a DOAC. (3) Primary hypertension Assessment & Plan: Blood pressure appears reasonably controlled with losartan and amlodipine. (4) Mixed hyperlipidemia Assessment & Plan: He has an apparent history of hyperlipidemia but is not on a statin medication. His LDL level is actually quite low. I will hold off on adding a statin medication at this time. He can discuss this with his regular protozoologist at the outside facility following discharge. ELLIS KING DO Oct 30, 2021 06:10
[2021-10-30] MEDS: MULTIVIT W/MINERALS TAB (THERAGRAN M) PO SCH (06:42)
[2021-10-30] MEDS: LEVOTHYROXINE 100 MCG (LEVOTHROID) TAB PO SCH (06:42)
[2021-10-30] MEDS: LEVOTHYROXINE 75 MCG (LEVOTHROID) TABLET PO SCH (06:42)
[2021-10-30 07:24] VITALS: BP 134/63
[2021-10-30 07:58] VITALS: BP 165/74
[2021-10-30] MEDS: PRASUGREL 10 MG (EFFIENT) TABLET PO SCH (08:04)
[2021-10-30] MEDS: ASPIRIN E.C. 81 MG (ECOTRIN) TAB PO SCH (08:04)
[2021-10-30] MEDS: buPROPion SR 150 MG (WELLBUTRIN SR) TAB PO SCH ×2 (08:05→20:58)
[2021-10-30] MEDS: ISOSORBIDE MONONITRATE 60 MG (IMDUR) TAB PO SCH ×2 (08:06→20:58)
[2021-10-30] MEDS: DOCUSATE SODIUM 100 MG (COLACE) CAP PO SCH ×2 (08:06→21:00)
[2021-10-30] MEDS: LOSARTAN 100 MG (COZAAR) TABLET PO SCH (08:06)
[2021-10-30] MEDS: SENNA W/DOCUSATE (SENOKOT S) TABLET PO SCH ×2 (08:07→21:01)
[2021-10-30] MEDS: amLODIPine 5 MG (NORVASC) TAB PO SCH (08:07)
[2021-10-30] MEDS: polyethylene glycoL POWDER 17 GM (MIRALAX) PACK PO SCH ×2 (08:08→21:00)
[2021-10-30] MEDS: FERROUS SULFATE ORAL LIQUID 44 MG/ML ML PO SCH (08:13)
[2021-10-30] MEDS: AMIODARONE 200 MG (CORDARONE) TAB PO SCH (08:13)
--- NOTE | 2021-10-30 09:43 | Occupational Ther Daily Note ---
OT Current Status-Daily Note Subjective Pt still requesting to go home, education on what assistance he will need. Appearance Pt left sitting in chair, all needs within reach. Mental Status/Objective Patient Orientation: Person, Place, Situation Attachments: Knee Immobilizer ADL-Treatment Therapy Code Descriptions/Definitions Functional [place] Measure: 0=Not Assessed/NA 4=Minimal Assistance 1=Total Assistance 5=Supervision or Setup 2=Maximal Assistance 6=Modified [place] 3=Moderate Assistance 7=Complete IndependenceSCALE: Activities may be completed with or without assistive devices. 0-Jxdngpcfkg-qpsncqx completes the activity by him/herself with no assistance from a helper. 5-Set-up or Clean-up Assistance-helper sets up or cleans up; patient completes activity. [place] assists only prior to or following the activity. 4-Supervision or Touching Assistance-helper provides verbal cues and/or touching/steadying and/or contact guard assistance as patient completes activity. Assistance may be provided throughout the activity or intermittently. 3-Partial/Moderate Assistance-helper does LESS THAN HALF the effort. [place] lifts, holds or supports trunk or limbs, but provides less than half the effort. 2-Substantial/Maximal Assistance-helper does MORE THAN HALF the effort. [place] lifts or holds trunk or limbs and provides more than half the effort. 4-Mktlmieou-ezfxcx does ALL the effort. Patient does none of the effort to complete the activity. Or, the assistance of 2 or more helpers is required for the patient to complete the activity. If activity was not attempted, code reason: 7-Patient Refused. 9-Not Applicable-not attempted and the patient did not perform the activity before the current illness, exacerbation or injury. 10-Not Attempted due to Environmental Limitations-(lack of equipment, weather restraints, etc.). 88-Not Attempted due to Medical Conditions or Safety Concerns. Oral Hygiene (QC): 5 Shower/Bathe Self (QC): 4 Upper Body Dressing (QC): 3 (min) Lower Body Dressing (QC): 4 Toileting Hygiene (QC): 4 Toilet Transfer (QC): 4 Sponge bath/dressing tasks performed seated EOB. Good recall on use of LHS in order to wash under LUE and RLE. CGA for safety with balance while standing to wash estela area/buttocks. Pt continues to need min verbal cues for compensatory strategies when donning/doffing shirt as well as min a to pull shirt sleeve completely over R shoulder. Pt able to complete all other steps with verbal cues only. Extra time and verbal/visual cues on director radiation oncology placement when threading LLE into shorts. No physical assistance required when threading this date. CGA when standing to pull shorts over hips. No LOB or unsteadiness this session. He ambulated within room with quad cane and close SBA-CGA. Grooming tasks performed at chair level with set up. Education OT Patient Education: Correct positioning, Energy conservation, Modified ADL techniques, Progress toward Goal/Update tx plan, Purpose of tx/functional activities, Rehab process, Safety issues, Transfer techniques, Use of adapted equipment Teaching Recipient: Patient Teaching Methods: Demonstration, Discussion Response to Teaching: Verbalize Understanding, Return Demonstration, Reinforcement Needed OT Short Term Goals Short Term Goals Time Frame: Nov 04, 2021 Eatin Oral hygiene: 4 Toileting hygiene: 3 Shower/bathe self: 3 Upper body dressin Lower body dressin Putting on/taking off footwear: 2 OT Halfway Goals Halfway Goals Time Frame: November 14, 2021 Eating (QC): 5 Oral Hygiene (QC): 5 Toileting Hygiene (QC): 6 Shower/Bathe Self (QC): 5 Upper Body Dressing (QC): 4 Lower Body Dressing (QC): 4 On/Off Footwear (QC): 4 1=Demonstrate adherence to instructed precautions during ADL tasks. 2=Patient will verbalize/demonstrate understanding of assistive devices/modifications for ADL. 3=Patient will improve strength/tolerance for activity to enable patient to perform ADL's. OT Education/Plan Problem List/Assessment Assessment: Decreased Activ Tolerance, Decreased UE Strength, Impaired Cognition, Impaired Funct Balance, Impaired I ADL's, Impaired Self-Care Skills, Restricted Funct UE ROM Discharge Recommendations Plan/Recommendations: Continue POC Treatment Plan/Plan of Care Treatment,Training & Education: Yes Patient would benefit from OT for education, treatment and training to promote independence in ADL's, mobility, safety and/or upper extremity function for ADL's. Plan of Care: ADL Retraining, Functional Mobility, Group Exercise/Act as Ind, O rthotic Fitting/Training, UE Funct Exercise/Act, W/C Management Training Treatment Duration: November 14, 2021 Frequency: At least 5 of 7 days/Wk (IRF) Estimated Hrs Per Day: 1.5 hours per day (60-90 min/day) Agreement: Yes Rehab Potential: Fair Time/GCodes Start Time: 08:45 Stop Time: 09:45 Total Time Billed (hr/min): 60 Billed Treatment Time 1 visit ADL x4 Sydnie Shine OT Oct 30, 2021 09:43
--- NOTE | 2021-10-30 11:39 | Physical Therapy Daily Note ---
PT Daily Note-Current Subjective Pt agrees to PT. Pt has no complaints of pain today. Mental Status Patient Orientation: Normal For Age Transfers SCALE: Activities may be completed with or without assistive devices. 2-Agptiyytvm-uzgmgfm completes the activity by him/herself with no assistance from a helper. 5-Set-up or Clean-up Assistance-helper sets up or cleans up; patient completes activity. [place] assists only prior to or following the activity. 4-Supervision or Touching Assistance-helper provides verbal cues and/or touchin g/steadying and/or contact guard assistance as patient completes activity. Assistance may be provided throughout the activity or intermittently. 3-Partial/Moderate Assistance-helper does LESS THAN HALF the effort. [place] lifts, holds or supports trunk or limbs, but provides less than half the effort. 2-Substantial/Maximal Assistance-helper does MORE THAN HALF the effort. [place] lifts or holds trunk or limbs and provides more than half the effort. 6-Qqthcbofo-jvemjr does ALL the effort. Patient does none of the effort to complete the activity. Or, the assistance of 2 or more helpers is required for the patient to complete the activity. If activity was not attempted, code reason: 7-Patient Refused. 9-Not Applicable-not attempted and the patient did not perform the activity before the current illness, exacerbation or injury. 10-Not Attempted due to Environmental Limitations-(lack of equipment, weather restraints, etc.). 88-Not Attempted due to Medical Conditions or Safety Concerns. Sit to Stand (QC): 4 Weight Bearing Right Lower Extremity: Right Full Weight Bearing Left Lower Extremity: Left Weight Bearing/Tolerated RUE in sling and NWB, LLE in knee immobilizer Gait Training Does the Patient Walk?: Yes Distance: 250' x2 Walk 10 feet (QC): 4 Walk 50 ft with 2 Turns(QC): 4 Walk 150 ft (QC): 4 Gait Persons Needed: 1 Gait Assistive Device: Cane Large Base Quad Wheelchair Training Does the Pt Use a Wheelchair?: No Exercises Standing: Hip Abduction, 3 way Ex=Flex, Abd, Ext, Sit to Stand, Side steps, Step-ups Standing Reps: 10 NuStep Minutes: 10 NuStep Workload: 1 Treatments Pt sitting in chair upon arrival of PT. Pt amb. in hallway with rest breaks as needed. Pt completes standing EX at // bars then completes NuStep. Pt amb. back to room. All needs met, call light in hand. Assessment Current Status: Good Progress Pt is very motivated and doesn't report a lot of pain during tx. Pt has a routine of EX and does them without VC from CREDIT RISK MODELER. PT Short Term Goals Short Term Goals Time Frame: Oct 31, 2021 Roll Left & Right: 4 Sit to lyin Lying to sitting on side of be: 4 (SBA) Sit to stand: 3 Chair/chk-if-csxhc transfer: 3 Toilet transfer: 3 Car transfer: 3 Walk 10 feet: 4 Walk 50 feet with two turns: 4 Walk 150 feet: 4 PT Incident Handler Goals Longterm Goals PT Longterm Goals Time Frame: November 14, 2021 Roll Left & Right (QC): 6 Sit to Lying (QC): 6 Lying-Sitting on Side/Bed(QC): 6 Sit to Stand (QC): 4 (SBA) Chair/Tnz-hs-Ydsab Xfer(QC): 4 (SBA) Toilet Transfer (QC): 4 (SBA) Car Transfer (QC): 88 Does the Patient Walk: Yes Walk 10 feet (QC): 6 Walk 50ft with 2 Turns (QC): 6 Walk 150 ft (QC): 6 Walking 10ft on Uneven Surface: 6 1 Step (curb) (QC): 4 4 Steps (QC): 4 12 Steps (QC): 88 Picking up an Object (QC): 6 Wheel 50 feet with 2 turns (QC: 6 Type: Manual Wheel 150 feet: 6 Type: Manual PT Plan Treatment/Plan Treatment Plan: Continue Plan of Care Treatment Plan: Bed Mobility, Education, Functional Activity David, Functional Strength, Group Therapy, Gait, Safety, Therapeutic Exercise, Transfers Treatment Duration: November 14, 2021 Frequency: At least 5 of 7 days/Wk (IRF) Estimated Hrs Per Day: 1.5 hours per day Patient and/or Family Agrees t: Yes Time/GCodes Time In: 1000 Time Out: 1100 Total Billed Treatment Time: 60 Total Billed Treatment 1, EX x2 (30 min), FA (10 min), GT (20 min) JACINTO GALICIA CREDIT RISK MODELER Oct 30, 2021 11:39
--- NOTE | 2021-10-30 14:44 | Therapy Group Daily Note ---
Therapy Daily Group Note Patient Education Topic Exercises, Other List Below (TRFs car and chair, curb sep, memory strategies) Exercises LE Seated Exercise, Sit to/from Stand, UE Exercise Session Ratio (pt:therapist): 4:1 Goal of Session: Education on ARU Expectations, Memory Strategies, UE/LE Strengthing, Safety with Transfers, Other (list) Goal Met for this Session: Yes Pt Benefit of Group: Contributions to Others, Increased Functional Strength, Improved Cognition, Socialization Other/Notes Pt. participated in group session this date. Pt. ambulated to from group with and SBA. Pt. was social, introducing herself and visiting with others , pts were educated regarding ARU and its requirements and practices . Pts. participated in seated U&L extremity exercises using 1 and 2# weights as well as seated core exercises. memory game and strategies were done utilizing images and challenging patients to remember their placement after they were turned over. Pts were educated and demonstrations we done for sit to stand from chair with arms , car TRFs, as well as curb step up down. Pt. back to room with [place] at hand after group. Start Time: 13:00 Stop Time: 14:00 Total Billed Treatment Time: 60 Total Billed Treatment 1,GRP ABEL OLMOS PIN MAKER Oct 30, 2021 14:44
[2021-10-30] MEDS: ARTIFICAL TEARS 0.4 ML UNIT DOSE (REFRESH PLUS) OU PRN ×2 (17:51→20:58)
[2021-10-30 19:43] VITALS: BP 136/65
[2021-10-30] MEDS: FINASTERIDE (PROSCAR) 5 MG TAB PO SCH (20:58)
[2021-10-30] MEDS: PANTOPRAZOLE 40 MG (PROTONIX) TAB PO SCH (20:58)
[2021-10-31] MEDS ORDERED: AMIO200T65 PO (06:05)
[2021-10-31] MEDS ORDERED: OXC5T PO (06:05)
[2021-10-31] MEDS ORDERED: SENN1TAB76 PO (06:05)
--- NOTE | 2021-10-31 06:07 | Discharge Summary ---
Diagnosis/Chief Complaint Date of Admission Oct 24, 2021 at 13:15 Date of Discharge Discharge Date: Oct 31, 2021 Discharge Diagnosis Assessment: Fall Proximal right humerus fracture Right patellar fracture Atrial fibrillation presumed not an anticoagulation candidate due to fall risk? Consulting cardiology CAD previous triple bypass Hypertension Hyperlipidemia Hypothyroidism Constipation Cognitive deficit but refuses slums score Plan: Pain control PT and OT Assistive devices Cardiology consult Orthopedic consult 10/25/2021: Supportive care Pain control with oxycodone 10/26/2021: Supportive care Oxycodone Hemiwalker 10/27/21: Monitor pain Monitor BP 10/28/2021: Constipation regimen Explained he cannot go home when he needs this much assistance he seems to be in denial 10/29/2021: Aggressive rehab Cognitive deficit noted (1) Coronary artery disease without angina pectoris Assessment & Plan: He is not having any angina. He is on aspirin, prasugrel and long-acting nitrates. He states that he had a stent well over 1 year ago. I suggested that he might want to speak with his regular geothermal production manager about stopping prasugrel sometime in the future. Ongoing use of prasugrel could put him at increased risk of hemorrhagic side effects. We do not typically use prasugrel for prolonged dual antiplatelet therapy. (2) Paroxysmal atrial fibrillation Assessment & Plan: He believes he has been in sinus rhythm on amiodarone. He has been on this for a number of years. It was actually started by Dr. Solomon many years ago. I decreased the dose from 200 mg to 100 mg daily to help reduce the risk of long-term, irreversible toxic side effects. For unclear reasons, he is not on a DOAC. (3) Primary hypertension Assessment & Plan: Blood pressure appears reasonably controlled with losartan and amlodipine. (4) Mixed hyperlipidemia Assessment & Plan: He has an apparent history of hyperlipidemia but is not on a statin medication. His LDL level is actually quite low. I will hold off on adding a statin medication at this time. He can discuss this with his regular geothermal production manager at the outside facility following discharge. ELLIS KING DO Oct 29, 2021 06:46 Discharge Summary Discharge Physical Examination Allergies: Coded Allergies: Sulfa (Sulfonamide Antibiotics) (Unverified Allergy, Unknown, 03/20/15) quinine (Unverified Allergy, Unknown, 01/16/15) Vitals & I&Os Vital Signs Date Time Temp Pulse Resp B/P (MAP) Pulse Ox O2 Delivery O2 Flow Rate FiO2 10/31/21 11:40 36.4 65 16 130/62 95 Room Air 10/29/21 08:58 2.00 General Appearance: Alert, Oriented X3, Cooperative Respiratory: Clear to Auscultation Cardiovascular: Regular Rate Neuro: Normal Gait, Normal Speech, Strength at 5/5 X4 Ext Psych/Mental Status: Mental Status NL Hospital Course Was the Problem List Reviewed?: Yes Hospital course: Patient had a lengthy hospital course for 8 days after falling and sustaining right patellar fracture and right proximal humerus fracture. Patient recovered well and participated in all therapy. Labs remained stable. Bowel function returned back to normal. Pain was controlled. Overall he did very well and was ready for discharge in improved condition. Labs (last 24 hrs) Laboratory Tests 10/25/21 05:54: White Blood Count 8.7, Red Blood Count 3.50L, Hemoglobin 9.8L, Hematocrit 31L, Mean Corpuscular Volume 89, Mean Corpuscular Hemoglobin 28, Mean Corpuscular Hemoglobin Concent 32, Red Cell Distribution Width 16.7H, Platelet Count 88L, Mean Platelet Volume 12.6H, Immature Granulocyte % (Auto) 1, Neutrophils (%) (Auto) 71, Lymphocytes (%) (Auto) 10L, Monocytes (%) (Auto) 13H, Eosinophils (%) (Auto) 5, Basophils (%) (Auto) 1, Neutrophils # (Auto) 6.2, Lymphocytes # (Auto) 0.9L, Monocytes # (Auto) 1.1H, Eosinophils # (Auto) 0.4H, Basophils # (Auto) 0.0, Immature Granulocyte # (Auto) 0.0, Percent Immature Platelet Fraction 12.5H , Sodium Level 138, Potassium Level 4.2, Chloride Level 102, Carbon Dioxide Level 24, Anion Gap 12, Blood Urea Nitrogen 13, Creatinine 0.98, Estimat Glomerular Filtration Rate 76, BUN/Creatinine Ratio 13, Glucose Level 124H, Calcium Level 8.6, Corrected Calcium 8.9, Total Bilirubin 0.4, Aspartate Amino Transf (AST/SGOT) 18, Alanine Aminotransferase (ALT/SGPT) 21, Alkaline Phosphatase 79, Total Protein 5.7L, Albumin 3.6, Triglycerides Level 96, Cholesterol Level 122, LDL Cholesterol Direct 56, VLDL Cholesterol 19, HDL Cholesterol 46, Smear Scan YES 10/28/21 05:43: White Blood Count 6.7, Red Blood Count 3.74L, Hemoglobin 10.5L, Hematocrit 33L, Mean Corpuscular Volume 89, Mean Corpuscular Hemoglobin 28, Mean Corpuscular Hemoglobin Concent 32, Red Cell Distribution Width 16.8H, Platelet Count 119L, Mean Platelet Volume 12.8H, Immature Granulocyte % (Auto) 1, Neutrophils (%) (Auto) 68, Lymphocytes (%) (Auto) 11L, Monocytes (%) (Auto) 15H, Eosinophils (%) (Auto) 5, Basophils (%) (Auto) 1, Neutrophils # (Auto) 4.5, Lymphocytes # (Auto) 0.8L, Monocytes # (Auto) 1.0, Eosinophils # (Auto) 0.4H, Basophils # (Auto) 0.0, Immature Granulocyte # (Auto) 0.0, Percent Immature Platelet Fraction 11.1H, Sodium Level 138, Potassium Level 4.7, Chloride Level 100, Carbon Dioxide Level 26, Anion Gap 12, Blood Urea Nitrogen 19H, Creatinine 0.96, Estimat Glomerular Filtration Rate 77, BUN/Creatinine Ratio 20, Glucose Level 111H, Calcium Level 8.9, Corrected Calcium 9.1, Total Bilirubin 0.6, Aspartate Amino Transf ( T/SGOT) 13, Alanine Aminotransferase (ALT/SGPT) 13, Alkaline Phosphatase 89, Total Protein 6.2L, Albumin 3.8 Pending Labs Laboratory Tests 10/25/21 05:54: White Blood Count 8.7, Red Blood Count 3.50, Hemoglobin 9.8, Hematocrit 31, Mean Corpuscular Volume 89, Mean Corpuscular Hemoglobin 28, Mean Corpuscular Hemoglobin Concent 32, Red Cell Distribution Width 16.7, Platelet Count 88, Mean Platelet Volume 12.6, Immature Granulocyte % (Auto) 1, Neutrophils (%) (Auto) 71, Lymphocytes (%) (Auto) 10, Monocytes (%) (Auto) 13, Eosinophils (%) (Auto) 5, Basophils (%) (Auto) 1, Neutrophils # (Auto) 6.2, Lymphocytes # (Auto) 0.9, Monocytes # (Auto) 1.1, Eosinophils # (Auto) 0.4, Basophils # (Auto) 0.0, Immat ure Granulocyte # (Auto) 0.0, Percent Immature Platelet Fraction 12.5, Sodium Level 138, Potassium Level 4.2, Chloride Level 102, Carbon Dioxide Level 24, Anion Gap 12, Blood Urea Nitrogen 13, Creatinine 0.98, Estimat Glomerular Filtration Rate 76, BUN/Creatinine Ratio 13, Glucose Level 124, Calcium Level 8.6, Corrected Calcium 8.9, Total Bilirubin 0.4, Aspartate Amino Transf (AST/ SGOT) 18, Alanine Aminotransferase (ALT/SGPT) 21, Alkaline Phosphatase 79, Total Protein 5.7, Albumin 3.6, Triglycerides Level 96, Cholesterol Level 122, LDL Cholesterol Direct 56, VLDL Cholesterol 19, HDL Cholesterol 46, Smear Scan YES 10/28/21 05:43: White Blood Count 6.7, Red Blood Count 3.74, Hemoglobin 10.5, Hematocrit 33, Mean Corpuscular Volume 89, Mean Corpuscular Hemoglobin 28, Mean Corpuscular Hemoglobin Concent 32, Red Cell Distribution Width 16.8, Platelet Count 119, Mean Platelet Volume 12.8, Immature Granulocyte % (Auto) 1, Neutrophils (%) (Auto) 68, Lymphocytes (%) (Auto) 11, Monocytes (%) (Auto) 15, Eosinophils (%) (Auto) 5, Basophils (%) (Auto) 1, Neutrophils # (Auto) 4.5, Lymphocytes # (Auto) 0.8, Monocytes # (Auto) 1.0, Eosinophils # (Auto) 0.4, Basophils # (Auto) 0.0, Immature Granulocyte # (Auto) 0.0, Percent Immature Platelet Fraction 11.1, Sodium Level 138, Potassium Level 4.7, Chloride Level 100, Carbon Dioxide Level 26, Anion Gap 12, Blood Urea Nitrogen 19, Creatinine 0.96, Estimat Glomerular Filtration Rate 77, BUN/Creatinine Ratio 20, Glucose Level 111, Calcium Level 8.9, Corrected Calcium 9.1, Total Bilirubin 0.6, Aspartate Amino Transf (AST/SGOT) 13, Alanine Aminotransferase (ALT/SGPT) 13, Alkaline Phosphatase 89, Total Protein 6.2, Albumin 3.8 Discharge Home Medications: Active Scripts Active Stool Softener-Laxative Tablet (Sennosides/Docusate Sodium) 8.6 Mg-50 Mg Tablet 1 Ea PO BID Oxyir Tablet (Oxycodone HCl) 5 Mg Tab 5 Mg PO Q4H PRN Amiodarone HCl 200 Mg Tablet 100 Mg PO DEVANG@0900 Reported Ferrous Sulfate 220 Mg/5 Ml Elixir 15 Ml PO DAILY Aspirin EC (Aspirin) 81 Mg Tablet. 162 Mg PO MO,WE,FR TAKES 2 (81MG) TABS Aspirin EC (Aspirin) 81 Mg Tablet. 81 Mg PO JACKSON,,,SA Preservision Areds Softgel (Vit A/C/E/Zinc/Co) 1 Cap Capsule 1 Cap PO BID Losartan Potassium 100 Mg Tablet 100 Mg PO DAILY Amlodipine Besylate 5 Mg Tablet 5 Mg PO DAILY Isosorbide Mononitrate ER (Isosorbide Mononitrate) 60 Mg Tab 60 Mg PO BID Omeprazole 40 Mg Capsule.dr 40 Mg PO HS Prasugrel HCl 10 Mg Tablet 10 Mg PO DAILY Bupropion Xl (Bupropion HCl) 300 Mg Tab.er.24h 300 Mg PO DAILY Levothyroxine Sodium 175 Mcg Tablet 175 Mcg PO DAILY Cyanocobalamin Injection (Cyanocobalamin) 1,000 Mcg/Ml Inj 1,000 Mcg IJ MONTHLY Finasteride 5 Mg Tablet 5 Mg PO HS Instructions to patient/family Please see electronic discharge instructions given to patient. Diagnosis/Problems Diagnosis/Problems (1) Fracture of head of humerus (2) Patella fracture (3) Fall on same level ELLIS KING DO Oct 31, 2021 06:07
--- NOTE | 2021-10-31 06:07 | D/C HH Face to Face Order ---
D/C Face to Face Orders Reconcile Patient Problems Problems Reviewed?: Yes Instructions for Patient Via [facility], Patient Instructions/FollowUp: DR Lockwood in 2 weeks Physician to follow Patient: Any Discharge Diet for Home: No Restrictions Patient Problems: Right patellar fracture and right proximal humerus fracture Patient Data-Allergies,Ht & Wt Patient Allergies: Coded Allergies: Sulfa (Sulfonamide Antibiotics) (Unverified Allergy, Unknown, 03/20/15) quinine (Unverified Allergy, Unknown, 01/16/15) Height (Feet): 6 Height (Inches): 2.00 Weight (Pounds): 190 Weight (Ounces): 0.0 Home Health Need/Face to Face Date of Face to Face: Oct 31, 2021 Clinical Findings: Generalized weakness and fatigue, Instability, Muscle weakness, Pain with ambulation, Unsteady gait I have seen Pt bdyr-oc-fgnz: Yes Discharged To: Home Diagnosis/Conditions: fractures Patient is Homebound due to: CognItive deficits, Efren fall risk due to i nstabilty, Muscle weakness, Pain w/ambulation Homebound Status Due to the above stated illness, injury or surgical procedure (medical condition or diagnosis) and associated clinical findings, the patient is homebound because of his/her inability to leave home except with aid of a supportive device and/or person AND leaving the home requires a considerable and taxing effort or is medically contraindicated. Pt req the following assistanc: [facility] Nursing Orders Home Health Services Order: Nursing Services, Firer Boiler-Evaluate & Treat, Physical Therapy-Evaluate & Treat Certify Stmt I certify that this patient is under my care and that I, a nurse practitioner or a physician; a apartment community assistant manager working with me, had a face to face encounter that - meets the physician face to face encounter requirements with this patient as dated. ELLIS KING DO Oct 31, 2021 06:07
[2021-10-31] MEDS: LEVOTHYROXINE 75 MCG (LEVOTHROID) TABLET PO SCH (06:12)
[2021-10-31] MEDS: LEVOTHYROXINE 100 MCG (LEVOTHROID) TAB PO SCH (06:12)
[2021-10-31] MEDS: MULTIVIT W/MINERALS TAB (THERAGRAN M) PO SCH (06:13)
[2021-10-31 07:50] VITALS: BP 130/62
[2021-10-31] MEDS: PRASUGREL 10 MG (EFFIENT) TABLET PO SCH (07:57)
[2021-10-31] MEDS: LOSARTAN 100 MG (COZAAR) TABLET PO SCH (07:57)
[2021-10-31] MEDS: buPROPion SR 150 MG (WELLBUTRIN SR) TAB PO SCH (07:57)
[2021-10-31] MEDS: DOCUSATE SODIUM 100 MG (COLACE) CAP PO SCH (07:57)
[2021-10-31] MEDS: FERROUS SULFATE ORAL LIQUID 44 MG/ML ML PO SCH (07:57)
[2021-10-31] MEDS: ISOSORBIDE MONONITRATE 60 MG (IMDUR) TAB PO SCH (07:57)
[2021-10-31] MEDS: ASPIRIN E.C. 81 MG (ECOTRIN) TAB PO SCH (08:00)
[2021-10-31] MEDS: amLODIPine 5 MG (NORVASC) TAB PO SCH (08:00)
[2021-10-31] MEDS: SENNA W/DOCUSATE (SENOKOT S) TABLET PO SCH (08:03)
[2021-10-31] MEDS: polyethylene glycoL POWDER 17 GM (MIRALAX) PACK PO SCH (08:03)
--- NOTE | 2021-10-31 09:17 | Physical Therapy Daily Note ---
PT Daily Note-Current Subjective Patient was in bed upon entering and consented to treat. Patient states he will be leaving later this morning. Pain Location: No Pain Reported Mental Status Patient Orientation: Person, Place, Time, Situation Transfers SCALE: Activities may be completed with or without assistive devices. 3-Wtpupasnia-elzilrj completes the activity by him/herself with no assistance from a helper. 5-Set-up or Clean-up Assistance-helper sets up or cleans up; patient completes activity. [place] assists only prior to or following the activity. 4-Supervision or Touching Assistance-helper provides verbal cues and/or touching/steadying and/or contact guard assistance as patient completes activity. Assistance may be provided throughout the activity or intermittently. 3-Partial/Moderate Assistance-helper does LESS THAN HALF the effort. [place] li fts, holds or supports trunk or limbs, but provides less than half the effort. 2-Substantial/Maximal Assistance-helper does MORE THAN HALF the effort. [place] lifts or holds trunk or limbs and provides more than half the effort. 2-Ijbchtuiy-ljqwao does ALL the effort. Patient does none of the effort to complete the activity. Or, the assistance of 2 or more helpers is required for the patient to complete the activity. If activity was not attempted, code reason: 7-Patient Refused. 9-Not Applicable-not attempted and the patient did not perform the activity before the current illness, exacerbation or injury. 10-Not Attempted due to Environmental Limitations-(lack of equipment, weather restraints, etc.). 88-Not Attempted due to Medical Conditions or Safety Concerns. Roll Left & Right (QC): 6 Sit to Lying (QC): 6 Lying to Sitting/Side of Bed(Q: 6 Sit to Stand (QC): 4 (CGA) Chair/Axu-dn-Xcicv Xfer(QC): 4 (CGA) Toilet Transfer (QC): 4 (CGA) Car Transfer (QC): 88 cannot perform a car transfer because of his knee immobilizer Weight Bearing Right Lower Extremity: Right Full Weight Bearing Left Lower Extremity: Left Weight Bearing/Tolerated RUE in sling and NWB, LLE in knee immobilizer Gait Training Does the Patient Walk?: Yes Distance: 100' Walk 10 feet (QC): 4 (SBA) Walk 50 ft with 2 Turns(QC): 4 (SBA) Walking 10ft/uneven surface-QC: 4 (SBA) Gait Assistive Device: Cane Large Base Quad L knee immobilizer. R arm sling. Wheelchair Training Does the Pt Use a Wheelchair?: No Wheel 50 ft with 2 turns (QC): 9 Wheel 150 ft (QC): 9 Type of Wheelchair: N/A Stair Training Stair Training: Handrails/: 1 handrail #of Steps: 4 1 Step (curb) (QC): 4 (SBA) 4 Steps (QC): 4 (SBA) Stairs: Pattern: Step to Balance Picking up an Object (QC): 6 Special Test Comments with logging contractor Treatments Transfer, stairs, ambulation Assessment Current Status: Good Progress Patient showed good strength with ambulation (flat and uneven surface), stairs, and transfers requiring only SBA (with knee immobilizer and large base quad cane). Patient states he still prefers a hemiwalker and would like to get one for home. Patient was left in chair with call light, tray, and all needs met. PT Short Term Goals Short Term Goals Time Frame: Oct 31, 2021 Roll Left & Right: 4 Sit to lyin Lying to sitting on side of be: 4 (SBA) Sit to stand: 3 Chair/scz-ig-nvbql transfer: 3 Toilet transfer: 3 Car transfer: 3 Walk 10 feet: 4 Walk 50 feet with two turns: 4 Walk 150 feet: 4 PT Jigsawyer Goals Jigsawyer Goals PT Long-Term Goals Time Frame: November 14, 2021 Roll Left & Right (QC): 6 Sit to Lying (QC): 6 Lying-Sitting on Side/Bed(QC): 6 Sit to Stand (QC): 4 (SBA) Chair/Bsf-co-Wnwzy Xfer(QC): 4 (SBA) Toilet Transfer (QC): 4 (SBA) Car Transfer (QC): 88 Does the Patient Walk: Yes Walk 10 feet (QC): 6 Walk 50ft with 2 Turns (QC): 6 Walk 150 ft (QC): 6 Walking 10ft on Uneven Surface: 6 1 Step (curb) (QC): 4 4 Steps (QC): 4 12 Steps (QC): 88 Picking up an Object (QC): 6 Wheel 50 feet with 2 turns (QC: 6 Type: Manual Wheel 150 feet: 6 Type: Manual PT Plan Problem List Problem List: Activity Tolerance, Functional Strength, Safety, Balance, Gait, Transfer, Bed Mobility, ROM Treatment/Plan Treatment Plan: Discontinue PT Treatment Plan: Bed Mobility, Education, Functional Activity David, Functional Strength, Group Therapy, Gait, Safety, Therapeutic Exercise, Transfers Treatment Duration: November 14, 2021 Frequency: At least 5 of 7 days/Wk (IRF) Estimated Hrs Per Day: 1.5 hours per day Patient and/or Family Agrees t: Yes Safety Risks/Education Patient Education: Gait Training, Transfer Techniques, Steps, Correct Positioning, Safety Issues Teaching Recipient: Patient Teaching Methods: Demonstration, Discussion Response to Teaching: Reinforcement Needed Time/GCodes Time In: 899 Time Out: 919 Total Billed Treatment Time: 20 Total Billed Treatment 1 visit FA 20min PHAM KERN PT Oct 31, 2021 09:17
--- NOTE | 2021-10-31 09:30 | Therapy Team Discharge Summary ---
Therapy Discharge Summary Discharge Recommendations Date of Discharge Physical Therapy Patient came to rehab following fall/right humeral fracture/left patellar fracture. Upon evaluation patient performed rolling and sit to supine with mod assist, supine to sit with CGA, sit <-> stand and transfers with max assist, ambulated 75' with a hemiwalker and knee immobilizer with CGA (including 50' with at least 2 turns of 90 degrees and 10' over an uneven surface), propelled a manual WC 50' with min assist, went up and down 1 step using a hemiwalker with CGA, and picked up an object from the floor using a director of slot operations with CGA. Patient has been performing bed mobility and transfer training, balance and endurance training, functional strengthening, stair training, gait training, and education. Patient has made fair progress but has only met his lead java programmer goals for rolling, supine <-> sit and stairs. Now, patient performs rolling and supine <-> sit with independence, sit <-> stand and transfers with CGA, ambulates 150' with a hemiwalker with SBA (including 50' with at least 2 turns of 90 degrees and 10' over an uneven surface), can go up and down 4 steps using 1 handrail with SBA, and can fruit picker an object from the floor using a director of slot operations with SBA. Patient is being discharged from this facility today and will be discharged from PT at this time. Roll Left to Right (QC): 6 Sit to Lying (QC): 6 Lying to Sitting/Side of Bed(Q: 6 Sit to Stand (QC): 4 (CGA) Chair/Loz-es-Sburd Xfer(QC): 4 (CGA) Toilet Transfer (QC): 4 (CGA) Car Transfer (QC): 88 Does the Patient Walk: Yes Mode of Locomotion: Walk Anticipated Mode of Locomotion: Walk Walk 10 feet (QC): 4 (SBA) Walk 50 ft with 2 Turns(QC): 4 (SBA) Walk 150 ft (QC): 4 Walking 10ft on uneven surface: 4 (SBA) Distance: 75' Gait Assistive Device: Cane Large Base Quad Does the Pt Use a Wheelchair: No Wheelchair Distance: 50', 30' Wheel 50 ft with 2 turns (QC): 9 Wheel 150 ft (QC): 9 Type of Wheelchair: N/A #of Steps: 4 1 Step (curb) (QC): 4 (SBA) 4 Steps (QC): 4 (SBA) 12 Steps (QC): 88 Balance Sitting Static: Good Balance Sitting Dynamic: Good Balance-Standing Static: Poor Picking up an Object (QC): 6 Occupational Therapy Decreased Activ Tolerance, Decreased UE Strength, Impaired I ADL's, Impaired Self-Care Skills Eating (QC): 5 Oral Hygiene (QC): 5 Shower/Bathe Self (QC): 4 Upper Body Dressing (QC): 3 (min) Lower Body Dressing (QC): 4 On/Off Footwear (QC): 2 Toileting Hygiene (QC): [address] Goals [address]ensing Court Magistrate Goals PT Senior Care Goals Time Frame: November 14, 2021 Roll Left to Right (QC): 6 Sit to Lying (QC): 6 Lying-Sitting on Side/Bed(QC): 6 Sit to Stand (QC): 4 (SBA) Chair/Any-vc-Mwauv Xfer(QC): 4 (SBA) Car Transfer (QC): 88 Does the Patient Walk: Yes Walk 10 feet (QC): 6 Walk 10ft-Uneven Surface(QC): 6 Walk 50ft with 2 Turns (QC): 6 Walk 150 ft (QC): 6 Wheel 50 feet with 2 turns (QC: 6 1 Step (curb) (QC): 4 4 Steps (QC): 4 12 Steps (QC): 88 Picking up an Object (QC): 6 OT Senior Care Goals Licensing Court Magistrate Goals Time Frame: November 14, 2021 Eating (QC): 5 Oral Hygiene (QC): 5 Shower/Bathe Self (QC): 5 Upper Body Dressing (QC): 4 Lower Body Dressing (QC): 4 On/Off Footwear (QC): 4 Toileting Hygiene (QC): 6 Toilet/Commode Transfer (QC): 4 (SBA) 1=Demonstrate adherence to instructed precautions during ADL tasks. 2=Patient will verbalize/demonstrate understanding of assistive devices/modifica tions for ADL. 3=Patient will improve strength/tolerance for activity to enable patient to perform ADL's. PHAM KERN PT Oct 31, 2021 09:30
--- NOTE | 2021-10-31 11:06 | Therapy Team Discharge Summary ---
Therapy Discharge Summary Discharge Recommendations Date of Discharge Therapy D/C Recommendations: Home w/ Family Support, Occupational Therapy Home Care, Homemaker Support Physical Therapy Roll Left to Right (QC): 6 Sit to Lying (QC): 6 Lying to Sitting/Side of Bed(Q: 6 Sit to Stand (QC): 4 (CGA) Chair/Ihd-le-Otvxn Xfer(QC): 4 (CGA) Toilet Transfer (QC): 4 (CGA) Car Transfer (QC): 88 Does the Patient Walk: Yes Mode of Locomotion: Walk Anticipated Mode of Locomotion: Walk Walk 10 feet (QC): 4 (SBA) Walk 50 ft with 2 Turns(QC): 4 (SBA) Walk 150 ft (QC): 4 Walking 10ft on uneven surface: 4 (SBA) Distance: 75' Gait Assistive Device: Cane Large Base Quad Does the Pt Use a Wheelchair: No Wheelchair Distance: 50', 30' Wheel 50 ft with 2 turns (QC): 9 Wheel 150 ft (QC): 9 Type of Wheelchair: N/A #of Steps: 4 1 Step (curb) (QC): 4 (SBA) 4 Steps (QC): 4 (SBA) 12 Steps (QC): 88 Balance Sitting Static: Good Balance Sitting Dynamic: Good Balance-Standing Static: Poor Picking up an Object (QC): 6 Occupational Therapy Pt arrived to [facility] s/p fall resulting in a right humeral fracture and left patellar fracture. At time of evaluation, pt was dependent for footwear, lower body dressing, upper body dressing, max a for toileting, mod a for bathing, and min a for oral care. Pt made good progress but did not meet all of his exterminator goals. See below regarding current levels of assist. Family agreeable to assist when needed. Pt is discharging from this facility today and will be discharged from OT at this time. Decreased Activ Tolerance, Decreased UE Strength, Impaired I ADL's, Impaired Self-Care Skills Eating (QC): 5 Oral Hygiene (QC): 5 Shower/Bathe Self (QC): 4 Upper Body Dressing (QC): 3 (min) Lower Body Dressing (QC): 4 On/Off Footwear (QC): 2 Toileting Hygiene (QC): 4 PT Workers' Compensation Magistrate Goals Retirement Goals PT Workers' Compensation Magistrate Goals Time Frame: November 14, 2021 Roll Left to Right (QC): 6 Sit to Lying (QC): 6 Lying-Sitting on Side/Bed(QC): 6 Sit to Stand (QC): 4 (SBA) Chair/Gqs-gr-Eyelh Xfer(QC): 4 (SBA) Car Transfer (QC): 88 Does the Patient Walk: Yes Walk 10 feet (QC): 6 Walk 10ft-Uneven Surface(QC): 6 Walk 50ft with 2 Turns (QC): 6 Walk 150 ft (QC): 6 Wheel 50 feet with 2 turns (QC: 6 1 Step (curb) (QC): 4 4 Steps (QC): 4 12 Steps (QC): 88 Picking up an Object (QC): 6 OT Workers' Compensation Magistrate Goals Retirement Goals Time Frame: November 14, 2021 Eating (QC): 5 (met) Oral Hygiene (QC): 5 (met) Shower/Bathe Self (QC): 5 (not met, CGA) Upper Body Dressing (QC): 4 (not met) Lower Body Dressing (QC): 4 (met) On/Off Footwear (QC): 4 (no met) Toileting Hygiene (QC): 6 (not met) Toilet/Commode Transfer (QC): 4 (met) 1=Demonstrate adherence to instructed precautions during ADL tasks. 2=Patient will verbalize/demonstrate understanding of assistive devices/modifications for ADL. 3=Patient will improve strength/tolerance for activity to enable patient to perform ADL's. Sydnie Shine OT Oct 31, 2021 11:06
[2021-10-31 11:40] VITALS: BP 130/62
== END 2021-10-31 11:40 | disposition home health service (06) | DRG 561 ==
PROVIDERS: ADMIT Internal Medicine; ATTEND Internal Medicine
DX: S82.002D Unspecified fracture of left patella, subsequent encounter for closed fracture with routine healing (principal); S42.294D Other nondisplaced fracture of upper end of right humerus, subsequent encounter for fracture with routine healing; R41.89 Other symptoms and signs involving cognitive functions and awareness; Z91.81 History of falling; I25.10 Atherosclerotic heart disease of native coronary artery without angina pectoris; I48.0 Paroxysmal atrial fibrillation; E78.00 Pure hypercholesterolemia, unspecified; E78.2 Mixed hyperlipidemia; I10 Essential (primary) hypertension; E03.9 Hypothyroidism, unspecified; K59.00 Constipation, unspecified; Z95.1 Presence of aortocoronary bypass graft; Z95.5 Presence of coronary angioplasty implant and graft; Z87.891 Personal history of nicotine dependence; Z79.01 Long term (current) use of anticoagulants; Z79.82 Long term (current) use of aspirin; Z88.2 Allergy status to sulfonamides; Z88.8 Allergy status to other drugs, medicaments and biological substances; W01.0XXD Fall on same level from slipping, tripping and stumbling without subsequent striking against object, subsequent encounter
CPT/HCPCS: 36415; 80053; 80061; 85025; 93005; 94760

== ENCOUNTER → 2021-11-14 | Outpatient (CLI) | payer MEDICARE ==
[~2021-11-14] MED LIST changes: +ASPI-1238 PO; +FESO45ML PO; +OXC5T PO; +SENN1TAB76 PO
--- NOTE | 2021-11-14 10:33 | Diagnostic Imaging Report ---
INDICATION: Patellar fracture, follow-up. Correlation is made with prior radiograph from 10/23/2021. Two views of the left knee were obtained. Comminuted patellar fracture is again noted and is grossly unchanged. Fracture lines remain clearly visible. No significant callus formation is identified at this time. Overall alignment is anatomic. There has been reduction in the large knee joint effusion when compared with prior exam. In addition, the soft tissue swelling in the prepatellar space has improved. Distal femur and proximal tibia and fibula are intact. The medial and lateral compartments are well maintained. The articular surfaces are smooth. No osteochondral defect is seen. No additional fractures are identified. Femoral popliteal and tibial arterial calcifications are noted. IMPRESSION: Stable patellar fracture when compared with exam from 10/23/2021. Overall alignment is anatomic. There has been significant improvement in the overlying soft tissue swelling as well as knee joint effusion. Dictated by: Dictated on workstation # [id number]
--- NOTE | 2021-11-14 10:50 | Diagnostic Imaging Report ---
INDICATION: Follow-up shoulder fracture. Time of Exam: 9:51 AM Correlation is made with prior radiograph from 10/23/2021. Fracture at the humeral neck as well as involvement of the greater tuberosity is again noted. There is some callus formation present but fracture lines remain visible. Glenohumeral and acromioclavicular alignment are normal. IMPRESSION: Healing proximal humerus fracture. Fracture lines do remain partly visible. Dictated by: Dictated on workstation # [id number]
== END ==
LOC: ORTHO 09:42
PROVIDERS: ATTEND Orthopaedic Surgery
DX: S42.201D Unspecified fracture of upper end of right humerus, subsequent encounter for fracture with routine healing (principal); S82.002D Unspecified fracture of left patella, subsequent encounter for closed fracture with routine healing; X58.XXXD Exposure to other specified factors, subsequent encounter
CPT/HCPCS: 73030; 73560; G0463; 99213

== ENCOUNTER → 2021-11-26 | Outpatient (CLI) | payer MEDICARE | LOC: ORTHO 13:15 | PROVIDERS: ATTEND Orthopaedic Surgery | DX: S82.002D Unspecified fracture of left patella, subsequent encounter for closed fracture with routine healing (principal); S42.201D Unspecified fracture of upper end of right humerus, subsequent encounter for fracture with routine healing; X58.XXXD Exposure to other specified factors, subsequent encounter | CPT/HCPCS: 99213 ==

== ENCOUNTER → 2021-12-10 | Outpatient (RCR) | payer MEDICARE ==
[2021-12-10 16:47] LABS: BASOPHILS # (AUTO) 0.1 10^3/uL (0.0-0.1); BASOPHILS % (AUTO) 1 % (0-10); EOSINOPHILS # (AUTO) 0.2 10^3/uL (0.0-0.3); EOSINOPHILS % (AUTO) 4 % (0-10); HEMATOCRIT 33 % (40-54); LYMPHOCYTES # (AUTO) 0.8 10^3/uL (1.0-4.0); LYMPHOCYTES % (AUTO) 14 % (12-44); MEAN CORPUSCULAR HEMOGLOBIN 27 pg (25-34); MEAN CORPUSCULAR HGB CONC 31 g/dL (32-36); MEAN CORPUSCULAR VOLUME 89 fL (80-99); MEAN PLATELET VOLUME 11.9 fL (9.0-12.2); MONOCYTES # (AUTO) 0.7 10^3/uL (0.0-1.0); MONOCYTES % (AUTO) 14 % (0-12); NEUTROPHILS # (AUTO) 3.6 10^3/uL (1.8-7.8); NEUTROPHILS % (AUTO) 66 % (42-75); PLATELET COUNT 162 10^3/uL (130-400); WHITE BLOOD COUNT 5.4 10^3/uL (4.3-11.0)
[2021-12-10 16:58] LABS: ALBUMIN 4.1 GM/DL (3.2-4.5); POTASSIUM 4.1 MMOL/L (3.6-5.0)
[2021-12-10 16:59] LABS: CALCIUM 8.8 MG/DL (8.5-10.1)
[2021-12-10 17:01] LABS: TOTAL PROTEIN 6.4 GM/DL (6.4-8.2)
[2021-12-10 17:02] LABS: BILIRUBIN,TOTAL 0.4 MG/DL (0.1-1.0)
[2021-12-10 17:04] LABS: CREATININE SERUM 0.9 MG/DL (0.60-1.30)
== END | disposition home or self-care (01) ==
LOC: ONC 16:39
PROVIDERS: ATTEND Internal Medicine Hematology & Oncology
DX: D50.9 Iron deficiency anemia, unspecified (principal); D61.818 Other pancytopenia; D69.6 Thrombocytopenia, unspecified; I48.91 Unspecified atrial fibrillation; E03.9 Hypothyroidism, unspecified
CPT/HCPCS: 36415; 80053; 82728; 83540; 83550; 85025

== ENCOUNTER → 2021-12-13 | Outpatient (CLI) | payer MEDICARE ==
--- NOTE | 2021-12-13 11:44 | Diagnostic Imaging Report ---
Indication: Right shoulder pain. Time of Exam: 10:55 AM Correlation is made with prior radiograph from 11/14/2021. There continues to be healing of the fracture involving the proximal right humerus. There appears to be some blurring of the fracture line, however fracture lines do remain partially visible. Glenohumeral and acromioclavicular alignment is maintained. There is narrowing of the acromiohumeral space. Impression: Healing proximal humerus fracture. Fracture lines do remain partly visible. Dictated by: Dictated on workstation # [id number]
--- NOTE | 2021-12-13 11:58 | Diagnostic Imaging Report ---
INDICATION: Left knee pain. TIME OF EXAM: 11:02 AM FINDINGS: 3 views of the left knee were obtained. There is generalized demineralization. There appear to be fractures involving the middle and upper 3rd of the patella, best seen on the lateral view. No significant displacement is seen. The distal femur as well as the proximal tibia and fibula are intact. Extensive femoral popliteal and tibial vascular calcifications are noted. There is no effusion. IMPRESSION: Nondisplaced patellar fracture. Overall appearance is similar to exam from 10/23/2021. Fracture lines remain clearly visible without significant healing. There is slightly less distraction at the fracture site compared with prior exam. Dictated by: Dictated on workstation # [id number]
== END ==
LOC: ORTHO 10:17
PROVIDERS: ATTEND Orthopaedic Surgery
DX: Z47.89 Encounter for other orthopedic aftercare (principal); S42.201D Unspecified fracture of upper end of right humerus, subsequent encounter for fracture with routine healing; S82.002G Unspecified fracture of left patella, subsequent encounter for closed fracture with delayed healing; X58.XXXD Exposure to other specified factors, subsequent encounter
CPT/HCPCS: 73030; 73562

== ENCOUNTER 2022-01-08 12:56 | Outpatient (RCR) | payer MEDICARE ==
[2022-01-08 13:20] LABS: EOSINOPHILS # (AUTO) 0.3 10^3/uL (0.0-0.3); HEMOGLOBIN 10.2 g/dL (13.3-17.7)
[2022-01-08 13:21] LABS: BASOPHILS # (AUTO) 0.1 10^3/uL (0.0-0.1); BASOPHILS % (AUTO) 1 % (0-10); EOSINOPHILS % (AUTO) 7 % (0-10); HEMATOCRIT 34 % (40-54); LYMPHOCYTES # (AUTO) 0.9 10^3/uL (1.0-4.0); LYMPHOCYTES % (AUTO) 19 % (12-44); MEAN CORPUSCULAR HEMOGLOBIN 27 pg (25-34); MEAN CORPUSCULAR HGB CONC 30 g/dL (32-36); MEAN CORPUSCULAR VOLUME 89 fL (80-99); MONOCYTES # (AUTO) 0.8 10^3/uL (0.0-1.0); MONOCYTES % (AUTO) 16 % (0-12); NEUTROPHILS # (AUTO) 2.7 10^3/uL (1.8-7.8); NEUTROPHILS % (AUTO) 57 % (42-75); PLATELET COUNT 143 10^3/uL (130-400); WHITE BLOOD COUNT 4.8 10^3/uL (4.3-11.0)
[2022-01-08 13:25] LABS: ALBUMIN 4.1 GM/DL (3.2-4.5)
[2022-01-08 13:26] LABS: POTASSIUM 4.5 MMOL/L (3.6-5.0)
[2022-01-08 13:28] LABS: TOTAL PROTEIN 6.5 GM/DL (6.4-8.2)
[2022-01-08 13:30] LABS: BILIRUBIN,TOTAL 0.5 MG/DL (0.1-1.0)
[2022-01-08 13:32] LABS: CREATININE SERUM 1.13 MG/DL (0.60-1.30)
== END 2022-01-09 | disposition home or self-care (01) ==
LOC: ONC 12:56
PROVIDERS: ATTEND Internal Medicine Hematology & Oncology
DX: D50.9 Iron deficiency anemia, unspecified (principal); D61.818 Other pancytopenia; D69.6 Thrombocytopenia, unspecified; I48.91 Unspecified atrial fibrillation; E03.9 Hypothyroidism, unspecified
CPT/HCPCS: 80053; 82728; 83540; 83550; 85025; 99213

== ENCOUNTER 2022-01-15 10:42 | Outpatient (RCR) | payer MEDICARE | END 2022-02-09 | disposition home or self-care (01) | LOC: ONC 10:42 | PROVIDERS: ATTEND Internal Medicine Hematology & Oncology | DX: D50.9 Iron deficiency anemia, unspecified (principal); D61.818 Other pancytopenia; D69.6 Thrombocytopenia, unspecified; E03.9 Hypothyroidism, unspecified | CPT/HCPCS: 99213 ==

== ENCOUNTER → 2022-01-23 | Outpatient (CLI) | payer MEDICARE | LOC: ORTHO 12:57 | PROVIDERS: ATTEND Orthopaedic Surgery | DX: S82.002D Unspecified fracture of left patella, subsequent encounter for closed fracture with routine healing (principal); S42.201D Unspecified fracture of upper end of right humerus, subsequent encounter for fracture with routine healing; X58.XXXD Exposure to other specified factors, subsequent encounter | CPT/HCPCS: 99213 ==

== ENCOUNTER 2022-05-07 13:45 | Outpatient (RCR) | payer MEDICARE ==
[2022-04-14 16:10] LABS: MEAN CORPUSCULAR VOLUME 90 fL (80-99); NEUTROPHILS % (AUTO) 56 % (42-75)
[2022-04-14 16:12] LABS: BASOPHILS # (AUTO) 0.1 10^3/uL (0.0-0.1); BASOPHILS % (AUTO) 2 % (0-10); EOSINOPHILS # (AUTO) 0.3 10^3/uL (0.0-0.3); EOSINOPHILS % (AUTO) 6 % (0-10); HEMATOCRIT 32 % (40-54); HEMOGLOBIN 9.6 g/dL (13.3-17.7); LYMPHOCYTES % (AUTO) 21 % (12-44); MEAN CORPUSCULAR HEMOGLOBIN 28 pg (25-34); MEAN CORPUSCULAR HGB CONC 31 g/dL (32-36); MEAN PLATELET VOLUME 12.5 fL (9.0-12.2); MONOCYTES # (AUTO) 0.7 10^3/uL (0.0-1.0); MONOCYTES % (AUTO) 15 % (0-12); NEUTROPHILS # (AUTO) 2.5 10^3/uL (1.8-7.8); PLATELET COUNT 121 10^3/uL (130-400); WHITE BLOOD COUNT 4.5 10^3/uL (4.3-11.0)
[2022-04-14 16:28] LABS: BILIRUBIN,TOTAL 0.3 MG/DL (0.1-1.0); CALCIUM 8.9 MG/DL (8.5-10.1); CREATININE SERUM 1.11 MG/DL (0.60-1.30); TOTAL PROTEIN 6.3 GM/DL (6.4-8.2)
[2022-05-07 14:27] LABS: HEMOGLOBIN 10.2 g/dL (13.3-17.7)
[2022-05-07 14:29] LABS: BASOPHILS # (AUTO) 0.1 10^3/uL (0.0-0.1); BASOPHILS % (AUTO) 1 % (0-10); EOSINOPHILS # (AUTO) 0.3 10^3/uL (0.0-0.3); EOSINOPHILS % (AUTO) 6 % (0-10); HEMATOCRIT 33 % (40-54); LYMPHOCYTES # (AUTO) 0.9 10^3/uL (1.0-4.0); LYMPHOCYTES % (AUTO) 17 % (12-44); MEAN CORPUSCULAR HEMOGLOBIN 28 pg (25-34); MEAN CORPUSCULAR HGB CONC 31 g/dL (32-36); MEAN CORPUSCULAR VOLUME 91 fL (80-99); MEAN PLATELET VOLUME 12.9 fL (9.0-12.2); MONOCYTES # (AUTO) 0.7 10^3/uL (0.0-1.0); MONOCYTES % (AUTO) 15 % (0-12); NEUTROPHILS % (AUTO) 60 % (42-75); PLATELET COUNT 114 10^3/uL (130-400); WHITE BLOOD COUNT 4.9 10^3/uL (4.3-11.0)
[2022-05-07 14:42] LABS: ALBUMIN 3.8 GM/DL (3.2-4.5); POTASSIUM 4.8 MMOL/L (3.6-5.0)
[2022-05-07 14:43] LABS: CALCIUM 8.8 MG/DL (8.5-10.1)
[2022-05-07 14:44] LABS: TOTAL PROTEIN 6.1 GM/DL (6.4-8.2)
[2022-05-07 14:46] LABS: BILIRUBIN,TOTAL 0.6 MG/DL (0.1-1.0)
[2022-05-07 14:48] LABS: CREATININE SERUM 1.12 MG/DL (0.60-1.30)
== END 2022-05-12 | disposition home or self-care (01) ==
LOC: ONC 13:45
PROVIDERS: ATTEND Internal Medicine Hematology & Oncology
DX: D50.9 Iron deficiency anemia, unspecified (principal); D61.818 Other pancytopenia; D69.6 Thrombocytopenia, unspecified; E03.9 Hypothyroidism, unspecified
CPT/HCPCS: 36415; 80053; 82728; 83540; 83550; 85025; 99213

== ENCOUNTER → 2022-05-07 | Outpatient (CLI) | payer MEDICARE | LOC: LAB 13:46 | PROVIDERS: ATTEND Internal Medicine | DX: E03.8 Other specified hypothyroidism (principal) | CPT/HCPCS: 36415; 84443 ==

== ENCOUNTER 2022-05-15 13:41 | Outpatient (RCR) | payer MEDICARE | END 2022-06-11 | disposition home or self-care (01) | LOC: ONC 13:41 | PROVIDERS: ATTEND Internal Medicine Hematology & Oncology | DX: D50.9 Iron deficiency anemia, unspecified (principal); D61.818 Other pancytopenia; D69.6 Thrombocytopenia, unspecified; E03.9 Hypothyroidism, unspecified | CPT/HCPCS: 99213 ==

== ENCOUNTER 2022-09-25 09:40 | Day surgery (SDC) | payer MEDICARE ==
[~2022-09-25] VITALS: Wt 77.1 kg
[2022-09-25] VITALS (11 sets, daily range): BP systolic 123–168; BP diastolic 61–81
[2022-09-25 10:18] LABS: ABSOLUTE RETIC # 74 10e9/uL (24-90); BASOPHILS # (AUTO) 0.1 10^3/uL (0.0-0.1); BASOPHILS % (AUTO) 2 % (0-10); EOSINOPHILS # (AUTO) 0.2 10^3/uL (0.0-0.3); EOSINOPHILS % (AUTO) 5 % (0-10); HEMATOCRIT 34 % (40-54); HEMOGLOBIN 10.4 g/dL (13.3-17.7); LYMPHOCYTES # (AUTO) 0.9 10^3/uL (1.0-4.0); LYMPHOCYTES % (AUTO) 21 % (12-44); MEAN CORPUSCULAR HEMOGLOBIN 27 pg (25-34); MEAN CORPUSCULAR HGB CONC 31 g/dL (32-36); MEAN CORPUSCULAR VOLUME 88 fL (80-99); MEAN PLATELET VOLUME 12.3 fL (9.0-12.2); MONOCYTES # (AUTO) 0.6 10^3/uL (0.0-1.0); MONOCYTES % (AUTO) 15 % (0-12); NEUTROPHILS # (AUTO) 2.3 10^3/uL (1.8-7.8); NEUTROPHILS % (AUTO) 56 % (42-75); PLATELET COUNT 128 10^3/uL (130-400); RETICULOCYTE % 1.91 % (0.50-2.40); WHITE BLOOD COUNT 4.1 10^3/uL (4.3-11.0)
[2022-09-25 10:38] LABS: PROTHROMBIN TIME PATIENT 14.2 SEC (12.2-14.7)
[2022-09-25] MEDS ORDERED: LIDOCAINE 1% INJ 30 ML (XYLOCAINE) VIAL INJ ONE (11:00)
[2022-09-25] MEDS ORDERED: MIDAZOLAM 2 MG/2 ML (VERSED) VIAL IVP ONE (11:00)
[2022-09-25] MEDS ORDERED: fentaNYL INJ 100 MCG/2 ML AMP IVP ONE (11:00)
[2022-09-25 11:02] LABS: EOSINOPHILS % (MANUAL) 10 %; LYMPHOCYTES % (MANUAL) 24 %; MONOCYTES % (MANUAL) 13 %; NEUTROPHILS % (MANUAL) 53 %; PLATELET ESTIMATE OCC GIANT/LARGE PLT
[2022-09-25 11:03] LABS: MICROCYTOSIS SLIGHT
[2022-09-25] MEDS ORDERED: NS IV 1000 ML 1,000 ML ONE (11:07)
[2022-09-25] MEDS ORDERED: NS IV 1000 ML 1,000 ML IV STA (11:15)
--- NOTE | 2022-09-25 12:17 | Diagnostic Imaging Report ---
INDICATION: Pancytopenia. Patient presents for CT-guided bone marrow aspiration and biopsy. DETAILS OF THE PROCEDURE: The patient was brought to the CT suite and placed on the table in the prone position. Axial imaging through the pelvis was performed to evaluate for an appropriate entry site. The procedure was performed utilizing conscious sedation with Radiology nursing and constant patient monitoring. The patient was given a total of 50 mcg of Fentanyl intravenously and 1 mg of Versed intravenously. The total procedure times was approximately 3 minutes. The low back was prepped and draped in the usual sterile fashion. A small amount of 1% lidocaine was utilized for local anesthesia. A bone marrow biopsy needle was advanced and placed with its tip along the posterior cortex of the right iliac bone. The needle was advanced through the cortex utilizing a bone marrow drill. Two bone marrow aspirates were then obtained. Next, the bone marrow drill was utilized to obtain a bone marrow core biopsy. The needle was withdrawn and hemostasis obtained. The patient tolerated the procedure well and left the Department in stable condition. IMPRESSION: Successful CT-guided bone marrow aspiration and core biopsy utilizing conscious sedation. Pathology results are currently pending. Dictated by: Dictated on workstation # [id number]
[2022-09-25] MEDS ORDERED: HYDROcodone/APAP 5 MG/325 MG (LORTAB) TAB PO PRN (12:30)
--- NOTE | 2022-09-25 16:08 | Pre-Op Note & Conscious Sedat ---
Pre-Operative Progress Note Date of Available H&P: Sep 25, 2022 Date H&P Reviewed: Sep 25, 2022 Time H&P Reviewed: 10:00 Pre-Op Diagnosis: pancytopenia Moderate Sedation PreProcedure Time 10:00 ASA Score 2 Airway Lungs Heart ASA score ASA 1: a normal healthy patient ASA 2: a patient with a mild systemic disease (mid diabetes, controlled hypertension, obesity ASA 3: a patient with a severe systemic disease that limits activity (angina, COPD, prior Myocardial infarction) ASA 4: a patient with an incapacitating disease that is a constant threat to life (CHF, renal failure) ASA 5: a moribund patient not expected to survive 24 hrs. (ruptured aneurysm) ASA 6: a declared brain- patient whose organs are being harvested. For emergent operations, add the letter E after the classification Mallampati Classification Grade 2 Sedation Plan Analgesia, Amnesia, Plan communicated to team members, Discussed options with patient/fam, Discussed risks with patient/fam The patient is an appropriate candidate to undergo the planned procedure, sedation, and anesthesia. The patient immediately re-assessed prior to indication. SHELBY CALIX MD Sep 25, 2022 16:08
== END 2022-09-25 13:35 ==
LOC: RAD 09:40
PROVIDERS: ATTEND Internal Medicine Hematology & Oncology
DX: D61.818 Other pancytopenia (principal); D50.9 Iron deficiency anemia, unspecified; I48.91 Unspecified atrial fibrillation; E03.9 Hypothyroidism, unspecified; Z79.890 Hormone replacement therapy; Z87.891 Personal history of nicotine dependence
CPT/HCPCS: 36415; 38222; 77012; 85007; 85027; 85045; 85055; 85610; 85730; 99156

== ENCOUNTER 2022-10-09 13:35 | Outpatient (RCR) | payer MEDICARE ==
[2022-09-10 13:17] LABS: BASOPHILS % (AUTO) 1 % (0-10); EOSINOPHILS # (AUTO) 0.2 10^3/uL (0.0-0.3); EOSINOPHILS % (AUTO) 5 % (0-10); HEMATOCRIT 32 % (40-54); HEMOGLOBIN 9.8 g/dL (13.3-17.7); LYMPHOCYTES # (AUTO) 0.7 10^3/uL (1.0-4.0); LYMPHOCYTES % (AUTO) 19 % (12-44); MEAN CORPUSCULAR HEMOGLOBIN 27 pg (25-34); MEAN CORPUSCULAR HGB CONC 31 g/dL (32-36); MEAN CORPUSCULAR VOLUME 87 fL (80-99); MEAN PLATELET VOLUME 12.4 fL (9.0-12.2); MONOCYTES # (AUTO) 0.7 10^3/uL (0.0-1.0); MONOCYTES % (AUTO) 19 % (0-12); NEUTROPHILS # (AUTO) 2.1 10^3/uL (1.8-7.8); NEUTROPHILS % (AUTO) 56 % (42-75); PLATELET COUNT 122 10^3/uL (130-400); WHITE BLOOD COUNT 3.8 10^3/uL (4.3-11.0)
[~2022-10-09 13:35] MED LIST changes: +SENN-271 PO; -SENN1TAB76 PO
[2022-10-09 13:58] LABS: BASOPHILS % (AUTO) 1 % (0-10); EOSINOPHILS # (AUTO) 0.3 10^3/uL (0.0-0.3); EOSINOPHILS % (AUTO) 6 % (0-10); HEMATOCRIT 32 % (40-54); HEMOGLOBIN 9.9 g/dL (13.3-17.7); LYMPHOCYTES # (AUTO) 0.8 10^3/uL (1.0-4.0); LYMPHOCYTES % (AUTO) 19 % (12-44); MEAN CORPUSCULAR HEMOGLOBIN 27 pg (25-34); MEAN CORPUSCULAR HGB CONC 31 g/dL (32-36); MEAN CORPUSCULAR VOLUME 87 fL (80-99); MEAN PLATELET VOLUME 13.3 fL (9.0-12.2); MONOCYTES # (AUTO) 0.7 10^3/uL (0.0-1.0); MONOCYTES % (AUTO) 17 % (0-12); NEUTROPHILS # (AUTO) 2.2 10^3/uL (1.8-7.8); NEUTROPHILS % (AUTO) 56 % (42-75); PLATELET COUNT 141 10^3/uL (130-400); WHITE BLOOD COUNT 3.9 10^3/uL (4.3-11.0)
[2022-10-09 14:10] LABS: ALBUMIN 3.8 GM/DL (3.2-4.5); BILIRUBIN,TOTAL 0.3 MG/DL (0.1-1.0); CALCIUM 8.8 MG/DL (8.5-10.1); CREATININE SERUM 0.98 MG/DL (0.60-1.30); POTASSIUM 4.5 MMOL/L (3.6-5.0); TOTAL PROTEIN 6.1 GM/DL (6.4-8.2)
[2022-10-09] MEDS ORDERED: FERRIC CARBOXYMALTOSE INJ 750 MG in NS (IVPB) 250 ML IV SCH (14:45)
== END 2022-10-10 | disposition home or self-care (01) ==
LOC: ONC 13:35
PROVIDERS: ATTEND Internal Medicine Hematology & Oncology
DX: D50.9 Iron deficiency anemia, unspecified (principal); D61.818 Other pancytopenia; D69.6 Thrombocytopenia, unspecified; E03.9 Hypothyroidism, unspecified
CPT/HCPCS: 36415; 80053; 82728; 83540; 83550; 84443; 85025; 96365

== ENCOUNTER 2022-11-06 14:43 | Outpatient (RCR) | payer MEDICARE ==
[2022-11-03 15:13] LABS: BASOPHILS # (AUTO) 0.1 10^3/uL (0.0-0.1); BASOPHILS % (AUTO) 1 % (0-10); EOSINOPHILS # (AUTO) 0.3 10^3/uL (0.0-0.3); EOSINOPHILS % (AUTO) 5 % (0-10); HEMATOCRIT 34 % (40-54); HEMOGLOBIN 10.7 g/dL (13.3-17.7); LYMPHOCYTES # (AUTO) 0.9 10^3/uL (1.0-4.0); LYMPHOCYTES % (AUTO) 15 % (12-44); MEAN CORPUSCULAR HEMOGLOBIN 28 pg (25-34); MEAN CORPUSCULAR HGB CONC 31 g/dL (32-36); MEAN CORPUSCULAR VOLUME 90 fL (80-99); MEAN PLATELET VOLUME 12.5 fL (9.0-12.2); MONOCYTES # (AUTO) 0.4 10^3/uL (0.0-1.0); MONOCYTES % (AUTO) 7 % (0-12); NEUTROPHILS # (AUTO) 4.3 10^3/uL (1.8-7.8); NEUTROPHILS % (AUTO) 70 % (42-75); PLATELET COUNT 142 10^3/uL (130-400); WHITE BLOOD COUNT 6.2 10^3/uL (4.3-11.0)
[2022-11-03 15:41] LABS: ALBUMIN 3.8 GM/DL (3.2-4.5); BILIRUBIN,TOTAL 0.3 MG/DL (0.1-1.0); CREATININE SERUM 1.12 MG/DL (0.60-1.30); TOTAL PROTEIN 6.4 GM/DL (6.4-8.2)
[~2022-11-06 14:43] MED LIST changes: +FERRIC CARBOXYMALTOSE INJ 750 MG in NS (IVPB) 250 ML IV SCH
[2022-11-06 15:24] LABS: ALBUMIN 3.7 GM/DL (3.2-4.5); BILIRUBIN,TOTAL 0.4 MG/DL (0.1-1.0); CREATININE SERUM 0.95 MG/DL (0.60-1.30); POTASSIUM 4.3 MMOL/L (3.6-5.0); TOTAL PROTEIN 6.1 GM/DL (6.4-8.2)
== END 2022-11-09 | disposition home or self-care (01) ==
LOC: ONC 14:43
PROVIDERS: ATTEND Internal Medicine Hematology & Oncology
DX: D61.818 Other pancytopenia (principal); D50.9 Iron deficiency anemia, unspecified; D69.6 Thrombocytopenia, unspecified; E03.9 Hypothyroidism, unspecified
CPT/HCPCS: 36415; 80053; 84443; 85025; 96365

== ENCOUNTER 2022-12-04 13:25 | Outpatient (RCR) | payer MEDICARE ==
[2022-11-28 11:32] LABS: BASOPHILS # (AUTO) 0.1 10^3/uL (0.0-0.1); BASOPHILS % (AUTO) 2 % (0-10); MEAN PLATELET VOLUME 13.1 fL (9.0-12.2); MONOCYTES # (AUTO) 0.6 10^3/uL (0.0-1.0); NEUTROPHILS # (AUTO) 2.8 10^3/uL (1.8-7.8)
[2022-11-28 11:34] LABS: EOSINOPHILS # (AUTO) 0.4 10^3/uL (0.0-0.3); EOSINOPHILS % (AUTO) 9 % (0-10); HEMATOCRIT 35 % (40-54); LYMPHOCYTES # (AUTO) 0.9 10^3/uL (1.0-4.0); LYMPHOCYTES % (AUTO) 18 % (12-44); MEAN CORPUSCULAR HEMOGLOBIN 29 pg (25-34); MEAN CORPUSCULAR HGB CONC 32 g/dL (32-36); MEAN CORPUSCULAR VOLUME 91 fL (80-99); MONOCYTES % (AUTO) 13 % (0-12); NEUTROPHILS % (AUTO) 58 % (42-75); WHITE BLOOD COUNT 4.8 10^3/uL (4.3-11.0)
[2022-11-28 11:37] LABS: PLATELET COUNT 140 10^3/uL (130-400)
[2022-11-28 11:52] LABS: ALBUMIN 3.9 GM/DL (3.2-4.5); BILIRUBIN,TOTAL 0.4 MG/DL (0.1-1.0); CALCIUM 8.7 MG/DL (8.5-10.1); CREATININE SERUM 1.05 MG/DL (0.60-1.30); POTASSIUM 4.2 MMOL/L (3.6-5.0); TOTAL PROTEIN 6.3 GM/DL (6.4-8.2)
[~2022-12-04 13:25] MED LIST changes: +FERR220S8 PO; -FERRIC CARBOXYMALTOSE INJ 750 MG in NS (IVPB) 250 ML IV SCH; -FESO45ML PO
== END 2022-12-10 | disposition home or self-care (01) ==
LOC: ONC 13:25
PROVIDERS: ATTEND Internal Medicine Hematology & Oncology
DX: D61.818 Other pancytopenia (principal); D50.9 Iron deficiency anemia, unspecified; D69.6 Thrombocytopenia, unspecified; E03.9 Hypothyroidism, unspecified
CPT/HCPCS: 36415; 80053; 82728; 83540; 83550; 84443; 85025

== ENCOUNTER 2023-01-05 13:14 | Outpatient (RCR) | payer MEDICARE ==
[2022-12-29 11:31] LABS: HEMOGLOBIN 10.5 g/dL (13.3-17.7); MEAN CORPUSCULAR HEMOGLOBIN 29 pg (25-34)
[2022-12-29 11:33] LABS: BASOPHILS % (AUTO) 1 % (0-10); EOSINOPHILS # (AUTO) 0.2 10^3/uL (0.0-0.3); EOSINOPHILS % (AUTO) 5 % (0-10); HEMATOCRIT 33 % (40-54); LYMPHOCYTES # (AUTO) 0.7 10^3/uL (1.0-4.0); LYMPHOCYTES % (AUTO) 16 % (12-44); MEAN CORPUSCULAR HGB CONC 32 g/dL (32-36); MEAN CORPUSCULAR VOLUME 90 fL (80-99); MEAN PLATELET VOLUME 12.6 fL (9.0-12.2); MONOCYTES # (AUTO) 0.6 10^3/uL (0.0-1.0); MONOCYTES % (AUTO) 12 % (0-12); NEUTROPHILS # (AUTO) 3.2 10^3/uL (1.8-7.8); NEUTROPHILS % (AUTO) 67 % (42-75); PLATELET COUNT 116 10^3/uL (130-400); WHITE BLOOD COUNT 4.7 10^3/uL (4.3-11.0)
[2022-12-29 11:49] LABS: ALBUMIN 3.7 GM/DL (3.2-4.5); POTASSIUM 3.7 MMOL/L (3.6-5.0)
[2022-12-29 12:23] LABS: CALCIUM 8.7 MG/DL (8.5-10.1)
[2022-12-29 12:24] LABS: TOTAL PROTEIN 5.7 GM/DL (6.4-8.2)
[2022-12-29 12:26] LABS: BILIRUBIN,TOTAL 0.3 MG/DL (0.1-1.0)
[2022-12-29 12:28] LABS: CREATININE SERUM 0.87 MG/DL (0.60-1.30)
[~2023-01-05 13:14] MED LIST changes: -LOSA100T57 PO; +LOSA100T58 PO
== END 2023-01-09 | disposition home or self-care (01) ==
LOC: ONC 13:14
PROVIDERS: ATTEND Internal Medicine Hematology & Oncology
DX: D61.818 Other pancytopenia (principal); D50.9 Iron deficiency anemia, unspecified; D69.6 Thrombocytopenia, unspecified; E03.9 Hypothyroidism, unspecified
CPT/HCPCS: 36415; 80053; 82728; 83540; 83550; 85025

== ENCOUNTER 2023-02-05 13:26 | Outpatient (RCR) | payer MEDICARE ==
[2023-02-02 09:27] LABS: HEMOGLOBIN 11.4 g/dL (13.3-17.7)
[2023-02-02 09:29] LABS: BASOPHILS # (AUTO) 0.1 10^3/uL (0.0-0.1); BASOPHILS % (AUTO) 1 % (0-10); EOSINOPHILS # (AUTO) 0.3 10^3/uL (0.0-0.3); EOSINOPHILS % (AUTO) 5 % (0-10); HEMATOCRIT 36 % (40-54); LYMPHOCYTES % (AUTO) 17 % (12-44); MEAN CORPUSCULAR HEMOGLOBIN 29 pg (25-34); MEAN CORPUSCULAR HGB CONC 32 g/dL (32-36); MEAN CORPUSCULAR VOLUME 91 fL (80-99); MEAN PLATELET VOLUME 12.3 fL (9.0-12.2); MONOCYTES # (AUTO) 0.8 10^3/uL (0.0-1.0); MONOCYTES % (AUTO) 14 % (0-12); NEUTROPHILS # (AUTO) 3.7 10^3/uL (1.8-7.8); NEUTROPHILS % (AUTO) 63 % (42-75); PLATELET COUNT 128 10^3/uL (130-400); WHITE BLOOD COUNT 5.9 10^3/uL (4.3-11.0)
[2023-02-02 09:51] LABS: ALBUMIN 3.9 GM/DL (3.2-4.5); BILIRUBIN,TOTAL 0.4 MG/DL (0.1-1.0); CALCIUM 9.1 MG/DL (8.5-10.1); CREATININE SERUM 1.69 MG/DL (0.60-1.30); POTASSIUM 4.1 MMOL/L (3.6-5.0); TOTAL PROTEIN 6.2 GM/DL (6.4-8.2)
== END 2023-02-09 | disposition home or self-care (01) ==
LOC: ONC 13:26
PROVIDERS: ATTEND Internal Medicine Hematology & Oncology
DX: D61.818 Other pancytopenia (principal); D50.9 Iron deficiency anemia, unspecified; D69.6 Thrombocytopenia, unspecified; E03.9 Hypothyroidism, unspecified
CPT/HCPCS: 36415; 80053; 82728; 83540; 83550; 84443; 85025

== ENCOUNTER → 2023-02-24 | Outpatient (CLI) | payer MEDICARE ==
--- NOTE | 2023-02-24 15:38 | Diagnostic Imaging Report ---
PROCEDURE: US Renal Bilateral. TECHNIQUE: Multiple real-time grayscale images were obtained over the kidneys in various projections bilaterally. INDICATION: Chronic kidney disease. Right kidney measures 10.8 x 4.7 x 5.4 cm and left kidney measures 10.4 x 4.5 x 4.5 cm. Cortical thickness and echogenicity is normal bilaterally. No calculi are seen. There is no hydronephrosis. Bilateral ureteral jets were visualized. IMPRESSION: Unremarkable renal ultrasound. Dictated by: Dictated on workstation # [id number]
== END ==
LOC: RAD 14:32
PROVIDERS: ATTEND Internal Medicine
DX: N18.31 Chronic kidney disease, stage 3a (principal)
CPT/HCPCS: 76770

== ENCOUNTER 2023-03-05 13:00 | Outpatient (RCR) | payer MEDICARE ==
[2023-02-27 13:18] LABS: EOSINOPHILS # (AUTO) 0.2 10^3/uL (0.0-0.3); HEMATOCRIT 34 % (40-54); HEMOGLOBIN 10.3 g/dL (13.3-17.7); MEAN CORPUSCULAR HEMOGLOBIN 29 pg (25-34); MEAN CORPUSCULAR HGB CONC 31 g/dL (32-36); MEAN CORPUSCULAR VOLUME 94 fL (80-99)
[2023-02-27 13:20] LABS: BASOPHILS # (AUTO) 0.1 10^3/uL (0.0-0.1); BASOPHILS % (AUTO) 1 % (0-10); EOSINOPHILS % (AUTO) 5 % (0-10); LYMPHOCYTES # (AUTO) 0.7 10^3/uL (1.0-4.0); LYMPHOCYTES % (AUTO) 16 % (12-44); MONOCYTES # (AUTO) 0.5 10^3/uL (0.0-1.0); MONOCYTES % (AUTO) 11 % (0-12); NEUTROPHILS # (AUTO) 3.2 10^3/uL (1.8-7.8); NEUTROPHILS % (AUTO) 67 % (42-75); PLATELET COUNT 117 10^3/uL (130-400); WHITE BLOOD COUNT 4.7 10^3/uL (4.3-11.0)
[2023-02-27 13:35] LABS: ALBUMIN 3.8 GM/DL (3.2-4.5); BILIRUBIN,TOTAL 0.6 MG/DL (0.1-1.0); CALCIUM 8.6 MG/DL (8.5-10.1); CREATININE SERUM 1.1 MG/DL (0.60-1.30); POTASSIUM 4.3 MMOL/L (3.6-5.0); TOTAL PROTEIN 6.2 GM/DL (6.4-8.2)
== END 2023-03-12 | disposition home or self-care (01) ==
LOC: ONC 13:00
PROVIDERS: ATTEND Internal Medicine Hematology & Oncology
DX: D61.818 Other pancytopenia (principal); D50.9 Iron deficiency anemia, unspecified; D69.6 Thrombocytopenia, unspecified; E03.9 Hypothyroidism, unspecified
CPT/HCPCS: 36415; 80053; 82728; 83540; 83550; 85025; 99214

== ENCOUNTER 2023-04-01 12:51 | Outpatient (RCR) | payer MEDICARE ==
[2023-03-26 14:31] LABS: HEMATOCRIT 35 % (40-54)
[2023-03-26 14:32] LABS: BASOPHILS # (AUTO) 0.1 10^3/uL (0.0-0.1); BASOPHILS % (AUTO) 2 % (0-10); EOSINOPHILS # (AUTO) 0.3 10^3/uL (0.0-0.3); EOSINOPHILS % (AUTO) 7 % (0-10); HEMOGLOBIN 10.9 g/dL (13.3-17.7); LYMPHOCYTES # (AUTO) 0.7 10^3/uL (1.0-4.0); LYMPHOCYTES % (AUTO) 19 % (12-44); MEAN CORPUSCULAR HEMOGLOBIN 29 pg (25-34); MEAN CORPUSCULAR HGB CONC 31 g/dL (32-36); MEAN CORPUSCULAR VOLUME 94 fL (80-99); MEAN PLATELET VOLUME 12.8 fL (9.0-12.2); MONOCYTES # (AUTO) 0.5 10^3/uL (0.0-1.0); MONOCYTES % (AUTO) 13 % (0-12); NEUTROPHILS # (AUTO) 2.2 10^3/uL (1.8-7.8); NEUTROPHILS % (AUTO) 58 % (42-75); PLATELET COUNT 116 10^3/uL (130-400); WHITE BLOOD COUNT 3.8 10^3/uL (4.3-11.0)
[2023-03-26 14:52] LABS: ALBUMIN 3.8 GM/DL (3.2-4.5); BILIRUBIN,TOTAL 0.4 MG/DL (0.1-1.0); CALCIUM 8.6 MG/DL (8.5-10.1); CREATININE SERUM 0.95 MG/DL (0.60-1.30); POTASSIUM 4.1 MMOL/L (3.6-5.0)
== END 2023-04-11 | disposition home or self-care (01) ==
LOC: ONC 12:51
PROVIDERS: ATTEND Internal Medicine Hematology & Oncology
DX: D61.818 Other pancytopenia (principal); D50.9 Iron deficiency anemia, unspecified; D69.6 Thrombocytopenia, unspecified; E03.9 Hypothyroidism, unspecified
CPT/HCPCS: 36415; 80053; 82728; 83540; 83550; 84443; 85025; 99214

== ENCOUNTER 2023-06-01 08:20 | Outpatient (RCR) | payer MEDICARE ==
[2023-05-20 13:02] LABS: EOSINOPHILS % (AUTO) 5 % (0-10); MEAN PLATELET VOLUME 12.4 fL (9.0-12.2)
[2023-05-20 13:04] LABS: BASOPHILS % (AUTO) 1 % (0-10); EOSINOPHILS # (AUTO) 0.3 10^3/uL (0.0-0.3); HEMATOCRIT 31 % (40-54); HEMOGLOBIN 9.4 g/dL (13.3-17.7); LYMPHOCYTES # (AUTO) 0.8 10^3/uL (1.0-4.0); LYMPHOCYTES % (AUTO) 14 % (12-44); MEAN CORPUSCULAR HEMOGLOBIN 28 pg (25-34); MEAN CORPUSCULAR HGB CONC 31 g/dL (32-36); MEAN CORPUSCULAR VOLUME 92 fL (80-99); MONOCYTES # (AUTO) 0.7 10^3/uL (0.0-1.0); MONOCYTES % (AUTO) 13 % (0-12); NEUTROPHILS % (AUTO) 68 % (42-75); PLATELET COUNT 119 10^3/uL (130-400); WHITE BLOOD COUNT 5.8 10^3/uL (4.3-11.0)
[2023-05-20 13:24] LABS: ALBUMIN 3.8 GM/DL (3.2-4.5); BILIRUBIN,TOTAL 0.3 MG/DL (0.1-1.0); CALCIUM 8.5 MG/DL (8.5-10.1); CREATININE SERUM 1.07 MG/DL (0.60-1.30); POTASSIUM 3.8 MMOL/L (3.6-5.0); TOTAL PROTEIN 6.1 GM/DL (6.4-8.2)
[2023-05-25] MEDS: FERRIC CARBOXYMALTOSE INJ 750 MG in NS (IVPB) 250 ML 250 ML IV SCH (15:18)
[2023-05-25 15:19] VITALS: BP 121/63
[~2023-06-01] VITALS: Ht 188 cm; Wt 81.7 kg
[2023-06-01 13:15] VITALS: BP 143/56
[2023-06-01] MEDS: FERRIC CARBOXYMALTOSE INJ 750 MG in NS (IVPB) 250 ML 250 ML IV SCH (13:25)
== END 2023-06-11 | disposition home or self-care (01) ==
LOC: ONC 08:20
PROVIDERS: ATTEND Internal Medicine Hematology & Oncology
DX: D61.818 Other pancytopenia (principal); D50.9 Iron deficiency anemia, unspecified; D69.6 Thrombocytopenia, unspecified; E03.9 Hypothyroidism, unspecified
CPT/HCPCS: 36415; 80053; 82728; 83540; 83550; 84443; 85025; 96365